=== PATIENT | female | born 1960 | race Caucasian/White ===

== ENCOUNTER 2019-03-17 18:22 | Emergency (ER) | payer OTHER ==
--- OUTSIDE RECORDS SUMMARY | 2019-03-17 18:25 | XMS REPORT | Continuity of Care Document ---
:1960 Author Organization [facility] Address [address] [place] [address] Phone Unavailable Care Team Providers Name Role Phone MARIE EATON DO Primary Care Physician Insurance Providers Guarantor Mandeep Lopez Address [address] [place] [address] Email [email or web address] [facility] Policy Number [id number] Subscriber's Name Mandeep Lopez Relationship 18 Self / Same As Patient Effective Date 11 Advance Directives Directive Response Recorded Date/Time Does the patient have an advance directive? No 04/30/15 7:59pm If yes, is advance directive on file with [facility]? No 04/30/15 7:59pm If not on file with [facility] will patient provide a copy? No 04/30/15 7:59pm Do you have a Directive to Physician? No 03/14/18 10:35am Do you have a Medical Power of Food Services Director? No 03/14/18 10:35am Do you have an out of hospital Do Not Resuscitate Order? No 03/14/18 10:35am Do you have any special needs we should be aware of? No 03/14/18 10:35am Do you have a support person here with you today? No 03/14/18 10:35am Did patient receive Notice of Privacy Practices? Yes 03/14/18 10:35am Did patient receive patient rights and responsibilities? Yes 03/14/18 10:35am Problems No problem information available. Medications Current Home Medications Medication Dose Units Route Directions Days Qty Instructions Start Date Duloxetine Hcl 30 Mg Daily 30 (Cymbalta) 30 Cap Mg Capsule. Escitalopram 10 Mg Oral Daily 30 Oxalate Tab (Lexapro) 10 Mg Tablet Esomeprazole PROTONIX Magnesium THERAPEUTIC (Nexium) 40 Mg SUBSTITUTE FOR Capsule.dr CARIAS PER [facility] Ketorolac Tromethamine (Sprix) 1 Each [place] Quetiapine Unknown Oral Twice A Day 60 Fumarate Dose Tab (Seroquel) 25 Mg Tablet Tiotropium Unknown Inhalation [place] Dose (Spiriva) 18 Mcg Cap.w.dev Social History Smoking Status Start Date Stop Date Former smoker Hospital Discharge Instructions No hospital discharge instruction information available. Plan of Care Discharge Date 03/14/18 2:46pm Disposition HOME, SELF-CARE Condition at Discharge Stable Instructions/Education Provided Bronchitis (Acute) - Adult COPD Hypokalemia Pneumonia - Bacterial Forms Provided Work/School Excuse Prescriptions See Medication Section Referrals [facility] Address: [address] [place] [id number] Additional Instructions/Education follow up with pcp take meds as directed return to ER for worsening of condition Functional Status No functional status information available. Allergies, Adverse Reactions, Alerts No known allergies. Immunizations No immunization information available. Vital Signs Acute Vital Signs Vital Response Date/Time Pulse Pulse Rate (adult) 96 bpm (60 - 90) 03/14/2018 10:30am Respiratory Rate 18 bpm (12 - 24) 03/14/2018 10:30am Height 5 ft 2 in 03/14/2018 9:19am Weight 160 lb 03/14/2018 9:19am Body Mass Index 29.3 kg/m^2 03/14/2018 9:19am Results Laboratory Results Test Name Result Units Flags Reference Collection Result Comments Date/Time Date/Time White Blood 11.39 x10e3/uL H 4.8-10.8 03/14/2018 03/14/2018 Count 10:00am 10:19am Red Blood Count 3.72 x10e6/uL 3.6-5.1 03/14/2018 03/14/2018 10:00am 10:19am Hemoglobin 11.6 g/dL L 12.0-16.0 03/14/2018 03/14/2018 10:00am 10:19am Hematocrit 35.6 % 34.2-44.1 03/14/2018 03/14/2018 10:00am 10:19am Mean 95.7 fL 81-99 03/14/2018 03/14/2018 Corpuscular 10:00am 10:19am Volume Mean 31.2 pg 28-32 03/14/2018 03/14/2018 Corpuscular 10:00am 10:19am Hemoglobin Mean 32.6 g/dL 31-35 03/14/2018 03/14/2018 Corpuscular 10:00am 10:19am Hemoglobin Concent Red Cell 15.0 % H 11.7-14.4 03/14/2018 03/14/2018 Distribution 10:00am 10:19am Width Platelet Count 405 x10e3/uL H 140-360 03/14/2018 03/14/2018 10:00am 10:19am Neutrophils (%) 59.3 % 38.7-80.0 03/14/2018 03/14/2018 (Auto) 10:00am 10:19am Lymphocytes (%) 35.5 % 18.0-39.1 03/14/2018 03/14/2018 (Auto) 10:00am 10:19am Monocytes (%) 4.0 % L 4.4-11.3 03/14/2018 03/14/2018 (Auto) 10:00am 10:19am Eosinophils (%) 0.4 % 0.0-6.0 03/14/2018 03/14/2018 (Auto) 10:00am 10:19am Basophils (%) 0.3 % 0.0-1.0 03/14/2018 03/14/2018 (Auto) 10:00am 10:19am IM GRANULOCYTES 0.5 % 0.0-1.0 03/14/2018 03/14/2018 % 10:00am 10:19am Neutrophils # 6.8 2.1-6.9 03/14/2018 03/14/2018 (Auto) 10:00am 10:19am Lymphocytes # 4.0 H 1.0-3.2 03/14/2018 03/14/2018 (Auto) 10:00am 10:19am Monocytes # 0.5 0.2-0.8 03/14/2018 03/14/2018 (Auto) 10:00am 10:19am Eosinophils # 0.1 0.0-0.4 03/14/2018 03/14/2018 (Auto) 10:00am 10:19am Basophils # 0.0 0.0-0.1 03/14/2018 03/14/2018 (Auto) 10:00am 10:19am Absolute 0.06 x10e3/uL 0-0.1 03/14/2018 03/14/2018 Immature 10:00am 10:19am Granulocyte (auto Sodium Level 141 mmol/L 136-145 03/14/2018 03/14/2018 10:00am 10:38am Potassium Level 2.9 mmol/L *L 3.5-5.1 03/14/2018 03/14/2018 Results called to at 1035 on 03/14/18 by Stephen King. RB 10:00am 10:38am OK. This test has been rerun and double checked for accuracy. Chloride Level 93 mmol/L L 98-107 03/14/2018 03/14/2018 10:00am 10:38am Carbon Dioxide 35 mmol/L H 22-29 03/14/2018 03/14/2018 Level 10:00am 10:38am Anion Gap 15.9 mmol/L 8-16 03/14/2018 03/14/2018 10:00am 10:38am Blood Urea 7 mg/dL 7-26 03/14/2018 03/14/2018 Nitrogen 10:00am 10:38am Creatinine 0.69 mg/dL 0.57-1.11 03/14/2018 03/14/2018 10:00am 10:38am BUN/Creatinine 10 6-25 03/14/2018 03/14/2018 Ratio 10:00am 10:38am Estimat > 60 ML/MIN 60- 03/14/2018 03/14/2018 Ranges were taken from the National Kidney Disease Education Glomerular 10:00am 10:38am Program and the National Kidney Foundation literature. Filtration Rate Reference ranges: 60 or greater: Normal 16-59 (for 3 consecutive months): Chronic kidney disease 15 or less: Kidney failure Glucose Level 78 mg/dL 74-118 03/14/2018 03/14/2018 10:00am 10:38am Calcium Level 9.8 mg/dL 8.4-10.2 03/14/2018 03/14/2018 10:00am 10:38am Procedures Procedure Status Date Provider(s) X-ray of chest, two views Active 03/14/18 SEBASTIÁN CARVER MD Encounters Encounter Location Arrival/Admit Date Discharge/Depart Date Attending Provider Departed [facility] 03/14/18 9:11am 03/14/18 2:46pm [facility] Emergency Room Patients Med SEBASTIÁN Epstein MD Center
--- OUTSIDE RECORDS SUMMARY | 2019-03-17 18:25 | XMS REPORT ---
:1960 Author [facility] Address [address] [place] [address] [address] [address] Care Team Providers Name Role Phone SEBASTIÁN CARVER Unavailable Unavailable YANET CURRY Unavailable Unavailable Problems This patient has no known problems. Allergies, Adverse Reactions, Alerts This patient has no known allergies or adverse reactions. Medications This patient has no known medications. Results Test Description Test Time Test Comments Text Results Atomic Results Result Comments CHEST 2018-03-[address], 11:27:00 [place], [place] [address] Patient Name: MANDEEP SAAVEDRA MR # : [id number] VIEWS : 1960 Age/Sex: 58/F Req #: [id number] Adm Physician: Ordered by: SEBASTIÁN CARVER MD Report #: [id number] Location: ER Room/Bed: __ Procedure: [id number] DX/CHEST 2 VIEWS Exam Date: 03/14/18 Exam Time: 1030 REPORT STATUS: Signed PROCEDURE: Frontal and lateral views of the chest. COMPARISON: None. INDICATIONS: COPD FINDINGS: Lines/tubes: None. Lungs: Low lung volumes. The left hemidiaphragm is elevated. There are patchy opacities at the lung bases, right greater than left. No evidence of pulmonary edema. Pleura: Possible trace bilateral pleural effusion. No evidence of pneumothorax. Heart and mediastinum: The cardiomediastinal silhouette is unremarkable. Atherosclerotic calcifications of the aortic arch. Bones: No acute bony abnormality. Subacute left posterolateral sixth rib fracture. IMPRESSION: Patchy opacities at the lung bases, likely atelectasis. Superimposed aspiration or pneumonia is possible in the appropriate clinical context. Elevation of the left hemidiaphragm. Findings may reflect phrenic nerve palsy and fluoroscopic "sniff test" or correlation with any prior outside imaging is recommended for evaluation. Subacute left posterolateral sixth rib fracture. Dictated by: CHARO VILLAREAL M.D. on 03/14/2018 at 11:27 Electronically approved by: CHARO VILLAREAL M.D. on 03/14/2018 at 11:27 Dictated By: CHARO VILLAREAL MD 26 Transcribed By: SINDY on 03/14/187 COPY TO: SEBASTIÁN CARVER MD BASIC METABOLIC PANEL 2017-01-25 14:41:00 Test Item Value Reference Range Comments SODIUM (BEAKER) (test 138 meq/L 135-148 hgvq=412) POTASSIUM (BEAKER) (test 4.1 meq/L 3.5-5.5 wbbl=615) CHLORIDE (BEAKER) (test 93 meq/L 98-106 efxq=482) CO2 (BEAKER) (test hnpp=008) 32 meq/L 20-31 BLOOD UREA NITROGEN (BEAKER) 8 mg/dL 10-26 (test hffw=706) CREATININE (BEAKER) (test 0.73 mg/dL 0.50-1.20 sgkq=550) GLUCOSE RANDOM (BEAKER) 86 mg/dL 70-110 (test lutb=508) CALCIUM (BEAKER) (test 9.8 mg/dL 8.5-10.5 tjcs=283) EGFR (BEAKER) (test 82 mL/min/1.73 sq m ESTIMATED GFR IS NOT zmxn=4330) ACCURATE CREATININE CLEARANCE IN PREDICTING GLOMERULAR FILTRATION RATE. ESTIMATED GFR IS NOT APPLICABLE FOR DIALYSIS PATIENTS. CBC W/PLT COUNT & AUTO [id number] 14:20:00 Test Item Value Reference Range Comments WHITE BLOOD CELL COUNT (BEAKER) (test dunf=645) 12.3 K/ L 4.0-10.0 RED BLOOD CELL COUNT (BEAKER) (test nenn=913) 3.75 M/ L 4.00-5.00 HEMOGLOBIN (BEAKER) (test hgdd=191) 12.0 GM/DL 12.0-15.0 HEMATOCRIT (BEAKER) (test vvti=357) 36.5 % 36.0-45.0 MEAN CORPUSCULAR VOLUME (BEAKER) (test mhti=553) 97.3 fL 82.0-99.0 MEAN CORPUSCULAR HEMOGLOBIN (BEAKER) (test 32.0 pg 27.0-33.0 plud=407) MEAN CORPUSCULAR HEMOGLOBIN CONC (BEAKER) (test 32.9 GM/DL 32.0-36.0 vhuk=573) RED CELL DISTRIBUTION WIDTH (BEAKER) (test 13.7 % 12.0-15.0 tlfx=033) PLATELET COUNT (BEAKER) (test zvvd=432) 322 K/CU MM 150-430 MEAN PLATELET VOLUME (BEAKER) (test yszu=928) 7.1 fL 6.5-10.5 NUCLEATED RED BLOOD CELLS (BEAKER) (test 0 /100 WBC 0-0 ivma=024) NEUTROPHILS RELATIVE PERCENT (BEAKER) (test 70 % shdk=074) LYMPHOCYTES RELATIVE PERCENT (BEAKER) (test 23 % kohw=415) MONOCYTES RELATIVE PERCENT (BEAKER) (test 5 % xvei=348) EOSINOPHILS RELATIVE PERCENT (BEAKER) (test 1 % bgvp=557) BASOPHILS RELATIVE PERCENT (BEAKER) (test 1 % wmyj=824) NEUTROPHILS ABSOLUTE COUNT (BEAKER) (test 8.60 K/ L 1.80-8.00 wgbj=466) LYMPHOCYTES ABSOLUTE COUNT (BEAKER) (test 2.90 K/ L 1.48-4.50 wtse=557) MONOCYTES ABSOLUTE COUNT (BEAKER) (test 0.60 K/ L 0.00-1.30 dpbw=992) EOSINOPHILS ABSOLUTE COUNT (BEAKER) (test 0.20 K/ L 0.00-0.50 sipa=338) BASOPHILS ABSOLUTE COUNT (BEAKER) (test 0.10 K/ L 0.00-0.20 yrgh=522)
--- OUTSIDE RECORDS SUMMARY | 2019-03-17 18:25 | XMS REPORT | Clinical Summary ---
:1960 Author Organization [facility] Address [address] [place] [address] Care Team Providers Name Role Phone Ifeanyi Huerta Kay Primary Care Provider Unavailable Allergies Active Allergy Reactions Severity Noted Date Comments Zolpidem Other (See Comments) 01/25/2017 Psychotic episode; sleep walking; hallucinations Zolpidem Tartrate Other (See Comments) 12/06/2017 Psychotic episode Medications Medication Sig Dispensed Refills Start Date End Date Status roflumilast Take 500 mcg by 0 Active (DALIRESP) 500 mcg mouth nightly . Tab tablet albuterol Take 2.5 mg by 0 Active (PROVENTIL,VENTOLIN) nebulization every 6 5 mg/mL nebulizer (six) hours as solution needed for Wheezing. albuterol HFA Inhale 2 puffs by 0 Active (VENTOLIN HFA) 90 mouth via inhaler mcg/actuation every 6 (six) hours inhaler as needed for Wheezing . OXYGEN-AIR DELIVERY 3 L by Miscellaneous 0 Active SYSTEMS route Pt wears 3 MISCIndications: 3l liters oxygen via nasal cannula 14/03.. DULoxetine Take 60 mg by mouth 0 Active (CYMBALTA) 60 MG nightly . capsule ziprasidone (GEODON) Take 20 mg by mouth 0 Active 20 MG capsule nightly . esomeprazole Take 20 mg by mouth 0 Active (NEXIUM) 20 MG nightly . capsule armodafinil Take 250 mg by mouth 0 Active (NUVIGIL) 250 mg nightly . tablet furosemide (LASIX) Take 80 mg by mouth 0 Active 40 MG tablet nightly . potassium chloride Take 10 mEq by mouth 0 Active (KLOR-CON) 10 MEQ CR nightly . tablet oxybutynin Take 5 mg by mouth 2 0 Active (DITROPAN) 5 MG (two) times daily. tablet estrogens, Take 1.25 mg by 0 Active conjugated, mouth once a week Pt (PREMARIN) 1.25 MG takes every tablet Tuesday.. montelukast Take 10 mg by mouth 0 Active (SINGULAIR) 10 mg nightly. tablet linaclotide Take 290 mcg by 0 Active (LINZESS) 290 mcg mouth nightly . Cap lactulose (CEPHULAC) Take 10 g by mouth 0 Active 10 gram packet as needed . metoprolol Take 25 mg by mouth 0 Active (TOPROL-XL) 25 MG 24 every evening . hr tablet fluticasone 2 sprays by Nasal 0 Active (FLONASE) 50 route daily . mcg/actuation nasal spray aspirin 81 MG EC Take 81 mg by mouth 0 Active tablet nightly . Active Problems Problem Noted Date Chronic left-sided low back pain without sciatica 12/14/2017 Lumbar radiculopathy 02/01/2017 Lumbar stenosis with neurogenic claudication 02/01/2017 Spondylolisthesis of lumbar region 02/01/2017 Spondylolisthesis, lumbar region 02/01/2017 Family History Medical History Relation Name Comments Hypertension Brother Crohn's disease Father Lung cancer Mother Colon cancer Sister Relation Name Status Comments Brother Father Mother Sister Social History Tobacco Use Types Packs/Day Years Used Date Former Smoker 1 40 Quit: 01/25/2013 Smokeless Tobacco: Never Used Alcohol Use Drinks/Week oz/Week Comments No Sex Assigned at Date Recorded Not on file Job Start Date Occupation Industry Not on file Not on file Not on file Travel History Travel Start Travel End No recent travel history available. Last Filed Vital Signs Not on file Plan of Treatment Health Maintenance Due Date Last Done Comments INFLUENZA VACCINE 05/22/2018 Implants Implanted Type Area Electronic Security Specialist Device Shelf Model / Identifier Expiration Serial / Date Lot Matrix Floseal Hemo W/O Ndl 10 [id number] - [id number] Cement/F Spine SLOAN: BIOSCI 06/21/2018 [id number] / Implanted: Qty: 1 on 02/01/2017 by Jaycob Rose MD iller/Ad Lumbar / hesive [id number] Gelfoam Kt + Orig [id number] - [id number] Cement/F Spine SLOAN:BIOSCI 2017 [id number] / Implanted: Qty: 1 on 02/01/2017 by Jaycob Rose MD iller/Ad Lumbar / hesive [id number] Sealr Kt Duraseal Poly 5ml - [id number] Cement/F Spine CONFLUENT SURG 03/21/2018 / Implanted: Qty: 1 on 02/01/2017 by Jaycob Rose MD iller/Ad Lumbar INC / hesive [id number] Results Not on fileafter 03/16/2018 Insurance Payer Benefit Plan / Subscriber ID Type Phone Address Group MEDICAID - MEDICAID [facility] COMM STAR xxxxxxxxx Medicaid Contracted [employer]GD CARE PLAN Advance Directives For more information, please contact:[address] [phone] Code Status Date Activated Date Inactivated Comments Full Code 02/01/2017 12:23 PM 02/02/2017 5:02 PM This code status was determined by: Patient
[2019-03-17] MEDS ORDERED: METHYLPREDNISOLONE 125 MG INJ ONE (19:47)
[2019-03-17] MEDS ORDERED: LEVALBUTEROL 1.25 MG/3 ML NEB ONE (19:48)
[2019-03-17 20:09] LABS: Absolute Lymphocytes (CBC) 2.8 K/uL (0.7-4.9); Basophils % 0.4 % (0-1.3); Hematocrit 35.9 % (36.0-45.0); Lymphocytes % 23.9 % (15.3-44.8); MPV 8.2 fL (7.6-11.3); RBC Red Blood Cell Count 3.91 M/uL (3.86-4.86)
--- NOTE | 2019-03-17 20:14 | RAD REPORT ---
EXAM DESCRIPTION: Saad Single View03/17/2019 7:55 pm CLINICAL HISTORY: sob COMPARISON: October 2017 FINDINGS: The lungs appear clear of acute infiltrate. The heart is mildly enlarged Left hemidiaphragm remains elevated IMPRESSION: No acute abnormalities displayed
[2019-03-17 20:21] LABS: BUN Blood Urea Nitrogen 11 mg/dL (7-18); Bicarbonate 34 mmol/L (21-32); Glucose Level 114 mg/dL (74-106); NT PRO-BNP 269 pg/mL (<125); Potassium 3.4 mmol/L (3.5-5.1); Sodium Level 141 mmol/L (136-145); Troponin (Emerg Dept Use Only) < 0.02 ng/mL (0.0-0.045)
--- NOTE | 2019-03-17 21:00 | ER ---
Nurse's Notes [facility] Name: Maureen Lopez Age: 59 yrs Sex: Female : 1960 Arrival Date: 03/17/2019 Time: 18:22 Bed 30 Private MD: Diagnosis: Chronic obstructive pulmonary disease, unspecified;Unspecified combined systolic (congestive) and diastolic (congestive) heart failure;Dyspnea, unspecified Presentation: 03/17 18:37 Presenting complaint: Patient states: "It's been coming on for the past few weeks, I've aj1 taken 2 rounds of steroids and 3 rounds of antibiotics and while I'm taking them my breathing gets better but when I stop it goes back to I can't walk across the room because I'm gasping for air." Denies cough, denies fever. Reports that her legs have been more swollen than normal, but she figured that was due to the steroids. Transition of care: patient was not received from another setting of care. Onset of symptoms was March 17, 2019. Risk Assessment: Do you want to hurt yourself or someone else? Patient reports no desire to harm self or others. Initial Sepsis Screen: Does the patient meet any 2 criteria? No. Patient's initial sepsis screen is negative. Does the patient have a suspected source of infection? No. Patient's initial sepsis screen is negative. Care prior to arrival: None. 18:37 Method Of Arrival: Wheelchair aj1 18:37 Acuity: ELIANE 3 aj1 Triage Assessment: 18:40 General: Appears in no apparent distress. comfortable, Behavior is calm, cooperative, aj1 appropriate for age. Pain: Denies pain. Neuro: Level of Consciousness is awake, alert, obeys commands, Oriented to person, place, time, situation. Cardiovascular: Patient's skin is warm and dry. Respiratory: Reports shortness of breath on exertion Airway is patent Respiratory effort is even, unlabored, Respiratory pattern is regular, symmetrical, Onset: The symptoms/episode began/occurred gradually, the patient has mild shortness of breath. Historical: - Allergies: 18:40 ambien; aj1 - Home Meds: 18:40 Aciphex 20 mg Oral TbEC 1 tab 2 times per day [Active]; Cymbalta 60 mg Oral cpDR 1 cap aj1 once daily [Active]; metoprolol tartrate 25 mg Oral tab 1 tab 2 times per day [Active]; Nuvigil 250 mg Oral tab 1 tab once daily [Active]; oxybutynin chloride 5 mg Oral tab 1 tab 2 times per day for Bladder Hyperactivity [Active]; Proventil Inhl [Active]; Ultram 50 mg Oral tab 1 tab every 4 hours [Active]; Lasix 80 mg Oral tab 1 tab once daily [Active]; aspirin 81 mg Oral chew 1 tab once daily [Active]; - PMHx: 18:40 Atrial Fib; Bladder Hyperactivity; COPD; Hypertension; CHF; aj1 - Immunization history:: Flu vaccine is not up to date. - Social history:: Smoking status: Patient/guardian denies using tobacco. - Ebola Screening: : Patient denies travel to an Ebola-affected area in the 21 days before illness onset. - Family history:: not pertinent. - Hospitalizations: : No recent hospitalization is reported. Screenin:22 Abuse screen: Denies threats or abuse. Denies injuries from another. Nutritional rv screening: No deficits noted. Tuberculosis screening: No symptoms or risk factors identified. Fall Risk None identified. Assessment: 19:20 General: Appears in no apparent distress. comfortable, Behavior is calm, cooperative. rv Pain: Denies pain. Neuro: Level of Consciousness is awake, alert, obeys commands, Oriented to person, place, time, situation. Cardiovascular: Patient's skin is warm and dry. Rhythm is regular. Respiratory: Airway is patent Breath sounds are clear bilaterally. Respiratory: Respiratory effort is even. Respiratory: Respiratory pattern is regular. Respiratory: Airway Trachea midline. Respiratory: Reports shortness of breath at rest GI: No signs and/or symptoms were reported involving the gastrointestinal system. : No signs and/or symptoms were reported regarding the genitourinary system. EENT: No signs and/or symptoms were reported regarding the EENT system. Derm: Skin is intact. Musculoskeletal: No signs and/or symptoms reported regarding the musculoskeletal system. 21:25 Reassessment: Patient appears in no apparent distress at this time. Patient and/or rv family updated on plan of care and expected duration. Pain level reassessed. Patient is alert, oriented x 3, equal unlabored respirations, skin warm/dry/pink. patient is waiting for her daughter to pick her up. Vital Signs: 18:40 BP 121 / 80; Pulse 91; Resp 20; Temp 98.4; Pulse Ox 99% on 3 lpm NC; Weight 78.02 kg aj1 (R); Height 5 ft. 2 in. (157.48 cm) (R); Pain 0/10; 19:30 BP 136 / 80; Pulse 102; Resp 22; Pulse Ox 99% on 3 lpm NC; rv 20:00 BP 125 / 60; Pulse 97; Resp 18; Pulse Ox 99% on 3 lpm NC; rv 20:30 BP 112 / 72; Pulse 101; Resp 17; Pulse Ox 99% on 2 lpm NC; rv 21:00 BP 131 / 71; Pulse 99; Resp 19; Pulse Ox 96% on 2 lpm NC; rv 18:40 Body Mass Index 31.46 (78.02 kg, 157.48 cm) aj1 ED Course: 18:22 Patient arrived in ED. as 18:39 Triage completed. aj1 18:40 Arm band placed on Patient placed in waiting room, Patient notified of wait time. aj1 19:08 Mele Luevano MD is Attending Physician. rn 19:19 Gabriel Painting RN is Primary Nurse. rv 19:47 Patient has correct armband on for positive identification. Placed in gown. Bed in low rv position. Call light in reach. Side rails up X 1. monitoring and evaluation advisor on. Pulse ox on. NIBP on. 19:50 Initial lab(s) drawn, by me, sent to lab. First set of blood cultures drawn by me. lt1 19:53 Missed attempt(s): 22 gauge in right forearm. lt1 19:53 Inserted saline lock: 22 gauge in right antecubital area, using aseptic technique. lt1 19:57 XRAY CXR (1 view) In Process Unspecified. EDMS 21:23 No provider procedures requiring assistance completed. IV discontinued, intact, rv bleeding controlled, No redness/swelling at site. Pressure dressing applied. Administered Medications: 19:37 Drug: Xopenex (3) 1.25 mg Route: Inhalation; rv 19:51 Drug: SOLU-Medrol 125 mg Route: IVP; Site: right antecubital; rv 21:20 Follow up: Response: No adverse reaction rv 21:12 Drug: Lasix 20 mg Route: IVP; Site: right antecubital; rv 21:20 Follow up: Response: Medication administered at discharge. rv Outcome: 21:01 Discharge ordered by . rn 21:23 Discharged to home ambulatory, with family. rv 21:23 Condition: good 21:23 Discharge instructions given to patient, Instructed on discharge instructions, follow up and referral plans. medication usage, Demonstrated understanding of instructions, follow-up care, medications, Prescriptions given X 1. 21:40 Patient left the ED. rv Signatures: Dispatcher [employer] EDMelba Davenport RN RN Liz Jacobson Roman, MD MD rn Vicente, Ronaldo, RN RN rv Tran, Leah 1
--- NOTE | 2019-03-17 21:01 | EDPHYS ---
Physician Documentation [facility] Name: Maureen Lopez Age: 59 yrs Sex: Female : 1960 Arrival Date: 03/17/2019 Time: 18:22 Bed 30 Private MD: ED Physician Mele Luevano HPI: 03/17 19:24 This 59 yrs old Female presents to ER via Wheelchair with complaints of rn Breathing Difficulty. 19:24 The patient has shortness of breath with light activity. Onset: The symptoms/episode rn began/occurred 2 week(s) ago. Duration: The symptoms are intermittent. The patient's shortness of breath is aggravated by exertion, light activity, talking, walking. Severity of symptoms: At their worst the symptoms were moderate in the emergency department the symptoms are unchanged. The patient has experienced similar episodes in the past. Reports has been on 2 rounds of abx and steroids, taking fluid pills, usually on 3L oxygen, short tubing. Cannot catch her breath with exertion. No hx of DVT/PE, no recent surgery or immobilization. No fever/cough. . Historical: - Allergies: 18:40 ambien; aj1 - Home Meds: 18:40 Aciphex 20 mg Oral TbEC 1 tab 2 times per day [Active]; Cymbalta 60 mg Oral cpDR 1 cap aj1 once daily [Active]; metoprolol tartrate 25 mg Oral tab 1 tab 2 times per day [Active]; Nuvigil 250 mg Oral tab 1 tab once daily [Active]; oxybutynin chloride 5 mg Oral tab 1 tab 2 times per day for Bladder Hyperactivity [Active]; Proventil Inhl [Active]; Ultram 50 mg Oral tab 1 tab every 4 hours [Active]; Lasix 80 mg Oral tab 1 tab once daily [Active]; aspirin 81 mg Oral chew 1 tab once daily [Active]; - PMHx: 18:40 Atrial Fib; Bladder Hyperactivity; COPD; Hypertension; CHF; aj1 - Immunization history:: Flu vaccine is not up to date. - Social history:: Smoking status: Patient/guardian denies using tobacco. - Ebola Screening: : Patient denies travel to an Ebola-affected area in the 21 days before illness onset. - Family history:: not pertinent. - Hospitalizations: : No recent hospitalization is reported. ROS: 19:24 Constitutional: Negative for fever, chills, and weight loss, Eyes: Negative for injury, rn pain, redness, and discharge, Neck: Negative for injury, pain, and swelling, Cardiovascular: Negative for chest pain, palpitations Respiratory: Negative for cough, and pleuritic chest pain, Abdomen/GI: Negative for abdominal pain, nausea, vomiting, diarrhea, and constipation, MS/Extremity: Negative for injury and deformity, Skin: Negative for injury, rash, and discoloration, Neuro: + generalized weakness Exam: 19:24 Constitutional: Overweight female, no acute distress while sitting up in bed rn Head/Face: Normocephalic, atraumatic. Eyes: Pupils equal round and reactive to light, extra-ocular motions intact. Lids and lashes normal. Conjunctiva and sclera are non-icteric and not injected. Cornea within normal limits. Periorbital areas with no swelling, redness, or edema. ENT: MMM, no stridor Cardiovascular: Regular rate and rhythm. No pulse deficits. Respiratory: + bilateral exp wheezing, mild tachypnea, no retractions Abdomen/GI: soft, non-tender MS/ Extremity: Pulses equal, no cyanosis. Neurovascular intact. Full, normal range of motion. Equal circumference. Neuro: Awake and alert, GCS 15, oriented to person, place, time, and situation. Cranial nerves II-XII grossly intact. Motor strength 5/5 in all extremities. Sensory grossly intact. Cerebellar exam normal. Vital Signs: 18:40 BP 121 / 80; Pulse 91; Resp 20; Temp 98.4; Pulse Ox 99% on 3 lpm NC; Weight 78.02 kg aj1 (R); Height 5 ft. 2 in. (157.48 cm) (R); Pain 0/10; 19:30 BP 136 / 80; Pulse 102; Resp 22; Pulse Ox 99% on 3 lpm NC; rv 20:00 BP 125 / 60; Pulse 97; Resp 18; Pulse Ox 99% on 3 lpm NC; rv 20:30 BP 112 / 72; Pulse 101; Resp 17; Pulse Ox 99% on 2 lpm NC; rv 21:00 BP 131 / 71; Pulse 99; Resp 19; Pulse Ox 96% on 2 lpm NC; rv 18:40 Body Mass Index 31.46 (78.02 kg, 157.48 cm) [facility] MDM: 19:08 Patient medically screened. rn 20:57 Differential diagnosis: Bronchitis CHF exacerbation, Chronic Obstructive Pulmonary rn Disease pneumonia, Pneumothorax pulmonary edema, reactive airway disease. Data reviewed: vital signs, nurses notes, lab test result(s), EKG, radiologic studies, plain films, and as a result, I will discharge patient. Counseling: I had a detailed discussion with the patient and/or guardian regarding: the historical points, exam findings, and any diagnostic results supporting the discharge/admit diagnosis, lab results, radiology results, the need for outpatient follow up, to return to the emergency department if symptoms worsen or persist or if there are any questions or concerns that arise at home. Response to treatment: the patient's symptoms have mildly improved after treatment, and as a result, I will discharge patient. Special discussion: I discussed with the patient/guardian in detail that at this point there is no indication for admission to the hospital. It is understood, however, that if the symptoms persist or worsen the patient needs to return immediately for re-evaluation. ED course: Patient with mild improvement, no acute findings on CXR, is 99% on home O2 level, no sign of infection, no ischemia on ECG. Does not need abx. Was given only 40mg prednisone last time, will dc home with 60mg prednisone and recommended doubling her lasix for next 3 days.. 03/17 19:24 Order name: Blood Culture Adult (2) rn 03/17 19:24 Order name: BMP; Complete Time: 20:40 03/17 19:24 Order name: CBC with Diff; Complete Time: 20:16 03/17 19:24 Order name: NT PRO-BNP; Complete Time: 20:40 03/17 19:24 Order name: Troponin (emerg Dept Use Only); Complete Time: 20:40 03/17 19:24 Order name: Procalcitonin; Complete Time: 21:21 03/17 19:24 Order name: XRAY CXR (1 view); Complete Time: 20:16 03/17 19:24 Order name: EKG; Complete Time: 19:27 rn 03/17 19:24 Order name: Cardiac monitoring; Complete Time: 19:55 03/17 19:24 Order name: EKG - Nurse/Tech; Complete Time: 20:32 03/17 19:24 Order name: IV Saline Lock; Complete Time: 19:55 rn 03/17 19:24 Order name: Labs collected and sent; Complete Time: 19:55 rn 03/17 19:24 Order name: O2 Per Protocol; Complete Time: 19:55 rn 03/17 19:24 Order name: O2 Sat Monitoring; Complete Time: 19:55 rn Administered Medications: 19:37 Drug: Xopenex (3) 1.25 mg Route: Inhalation; rv 19:51 Drug: SOLU-Medrol 125 mg Route: IVP; Site: right antecubital; rv 21:20 Follow up: Response: No adverse reaction rv 21:12 Drug: Lasix 20 mg Route: IVP; Site: right antecubital; rv 21:20 Follow up: Response: Medication administered at discharge. rv Disposition: 03/17/19 21:01 Discharged to Home. Impression: Chronic obstructive pulmonary disease, unspecified, Unspecified combined systolic (congestive) and diastolic (congestive) heart failure, Dyspnea, unspecified. - Condition is Stable. - Discharge Instructions: Chronic Obstructive Pulmonary Disease, Heart Failure, Shortness of Breath. - Prescriptions for Prednisone 20 mg Oral Tablet - take 3 tablet by ORAL route once daily for 5 days; 15 tablet. - Medication Reconciliation Form, Thank You Letter, Antibiotic Education, Prescription Opioid Use form. - Follow up: Private Physician; When: As needed; Reason: Recheck today's complaints, Re-evaluation by your physician. - Problem is an ongoing problem. - Symptoms have improved. Signatures: Dispatcher [employer] EDMI Melba Kellogg RN RN aj1 Mele Luevano MD MD rn Vicente, Ronaldo, RN RN rv Corrections: (The following items were deleted from the chart) 21:40 21:01 03/17/2019 21:01 Discharged to Home. Impression: Chronic obstructive pulmonary rv disease, unspecified; Unspecified combined systolic (congestive) and diastolic (congestive) heart failure; Dyspnea, unspecified. Condition is Stable. Forms are Medication Reconciliation Form, Thank You Letter, Antibiotic Education, Prescription Opioid Use. Follow up: Private Physician; When: As needed; Reason: Recheck today's complaints, Re-evaluation by your physician. Problem is an ongoing problem. Symptoms have improved. rn
[2019-03-17] MEDS ORDERED: FUROSEMIDE 20 MG/ 2ML VIAL ONE (21:23)
[2019-03-17 22:33] VITALS: TEMP 98.4
[2019-03-17 22:38] VITALS: BP 131/71; O2SAT 96
--- NOTE | 2019-03-18 06:28 | EKG ---
Test Date: 2019-03-17 Test Time: 20:26:24 Hospital Receptionist: GIANFRANCO MEASUREMENT RESULTS: Intervals: Rate: 99 LA: 172 QRSD: 78 QT: 372 QTc: 477 [place]: P: 58 LA: 172 QRS: 14 T: 61 INTERPRETIVE STATEMENTS: Normal sinus rhythm Normal ECG Compared to ECG 12/10/2016 05:18:14 Left anterior fascicular block no longer present Prolonged QT interval no longer present Electronically Signed On 03-18-19 06:27:36 CDT by Pedro Matos
== END 2019-03-17 21:40 | disposition home or self-care (01) ==
LOC: ER 18:22
DX: J44.9 Chronic obstructive pulmonary disease, unspecified (principal); I50.40 Unspecified combined systolic (congestive) and diastolic (congestive) heart failure; I10 Essential (primary) hypertension; I48.91 Unspecified atrial fibrillation; Z79.82 Long term (current) use of aspirin; Z88.8 Allergy status to other drugs, medicaments and biological substances
CPT/HCPCS: 36415; 71045; 80048; 83880; 84145; 84484; 85025; 87040; 93005; 96374; 96375; 99285; J1940; J2930

== ENCOUNTER 2019-04-27 21:54 | Inpatient (IN) | payer OTHER ==
--- OUTSIDE RECORDS SUMMARY | 2019-04-27 21:57 | XMS REPORT | Clinical Summary ---
:[address] [facility] Address [address] [place] [address] Care Team Providers Name Role Phone Ifeanyi [...] INFLUENZA VACCINE 05/22/2018 Implants Implanted Type Area Assistant In Nursing Device Shelf Model / Identifier Expiration Serial / Date Lot Matrix Floseal Hemo W/O Ndl 10 [id number] - [id number] Cement/F Spine SLOAN: BIOSCI 06/21/2018 [id number] / Implanted: Qty: 1 on 02/01/2017 by Jaycob Rose MD iller/Ad Lumbar / hesive [id number] Gelfoam Kt + Orig [id number] - [id number] Cement/F Spine SLOAN:BIOSCI 2017 [id number] / Implanted: Qty: 1 on 02/01/2017 by Jaycob Rose MD iller/Ad Lumbar / hesive [id number] Sealr Kt Duraseal Poly 5ml - [id number] Cement/F Spine CONFLUENT SURG 03/21/2018 / Implanted: Qty: 1 on 02/01/2017 by Jaycob Rose MD iller/Ad Lumbar INC / hesive [id number] Results Not on fileafter 04/26/2018 Insurance Payer Benefit Plan / Subscriber ID Type Phone Address Group MEDICAID - MEDICAID [facility] [place] [facility] xxxxxxxxx Medicaid Contracted [employer] CARE PLAN Advance Directives For more information, please contact:[address] [phone] Code Status Date Activated Date Inactivated Comments Full Code 02/01/2017 12:23 PM 02/02/2017 5:02 PM This code status was determined by: Patient
--- OUTSIDE RECORDS SUMMARY | 2019-04-27 21:57 | XMS REPORT ---
:1960 Author Organization [facility] Address [address] [place] [address] [address] Care Team Providers Name Role Phone SEBASTIÁN CARVER Unavailable Unavailable YANET CURRY Unavailable Unavailable Problems This patient has no known problems. Allergies, Adverse Reactions, Alerts This patient has no known allergies or adverse reactions. Medications This patient has no known medications. Results Test Description Test Time Test Comments Text Results Atomic Results Result Comments CHEST 2018-03-[address], 11:27:00 [place], [place] [address] Patient Name: MANDEEP SAAVEDRA MR # : [id number] VIEWS : 1960 Age/Sex: 58/F Req #: [id number] Adm Physician: Ordered by: SEBASTIÁN CARVER MD Report #: [id number] Location: ER Room/Bed: __ Procedure: [id number] DX/CHEST 2 VIEWS Exam Date: 03/14/18 Exam [...] Comments SODIUM (BEAKER) (test 138 meq/L 135-148 qios=023) POTASSIUM (BEAKER) (test 4.1 meq/L 3.5-5.5 undc=101) CHLORIDE (BEAKER) (test 93 meq/L 98-106 upyj=365) CO2 (BEAKER) (test dlck=396) 32 meq/L 20-31 BLOOD UREA NITROGEN (BEAKER) 8 mg/dL 10-26 (test sqab=198) CREATININE (BEAKER) (test 0.73 mg/dL 0.50-1.20 kpkj=256) GLUCOSE RANDOM (BEAKER) 86 mg/dL 70-110 (test puju=844) CALCIUM (BEAKER) (test 9.8 mg/dL 8.5-10.5 cdgr=603) EGFR (BEAKER) (test 82 mL/min/1.73 sq m ESTIMATED GFR IS NOT jndr=6432) ACCURATE CREATININE CLEARANCE IN PREDICTING GLOMERULAR FILTRATION RATE. ESTIMATED GFR IS NOT APPLICABLE FOR DIALYSIS PATIENTS. CBC W/PLT COUNT & AUTO [id number] 14:20:00 Test Item Value Reference Range Comments WHITE BLOOD CELL COUNT (BEAKER) (test ipih=857) 12.3 K/ L 4.0-10.0 RED BLOOD CELL COUNT (BEAKER) (test wtjx=987) 3.75 M/ L 4.00-5.00 HEMOGLOBIN (BEAKER) (test cyzo=131) 12.0 GM/DL 12.0-15.0 HEMATOCRIT (BEAKER) (test nkog=374) 36.5 % 36.0-45.0 MEAN CORPUSCULAR VOLUME (BEAKER) (test kuuj=358) 97.3 fL 82.0-99.0 MEAN CORPUSCULAR HEMOGLOBIN (BEAKER) (test 32.0 pg 27.0-33.0 pxnz=848) MEAN CORPUSCULAR HEMOGLOBIN CONC (BEAKER) (test 32.9 GM/DL 32.0-36.0 ivrq=175) RED CELL DISTRIBUTION WIDTH (BEAKER) (test 13.7 % 12.0-15.0 zfoy=842) PLATELET COUNT (BEAKER) (test bdyl=827) 322 K/CU MM 150-430 MEAN PLATELET VOLUME (BEAKER) (test ytzo=809) 7.1 fL 6.5-10.5 NUCLEATED RED BLOOD CELLS (BEAKER) (test 0 /100 WBC 0-0 bzrk=363) NEUTROPHILS RELATIVE PERCENT (BEAKER) (test 70 % hbru=545) LYMPHOCYTES RELATIVE PERCENT (BEAKER) (test 23 % lyii=566) MONOCYTES RELATIVE PERCENT (BEAKER) (test 5 % npor=919) EOSINOPHILS RELATIVE PERCENT (BEAKER) (test 1 % pnua=811) BASOPHILS RELATIVE PERCENT (BEAKER) (test 1 % ovdk=812) NEUTROPHILS ABSOLUTE COUNT (BEAKER) (test 8.60 K/ L 1.80-8.00 hydu=510) LYMPHOCYTES ABSOLUTE COUNT (BEAKER) (test 2.90 K/ L 1.48-4.50 wukj=787) MONOCYTES ABSOLUTE COUNT (BEAKER) (test 0.60 K/ L 0.00-1.30 ldny=500) EOSINOPHILS ABSOLUTE COUNT (BEAKER) (test 0.20 K/ L 0.00-0.50 kfvt=153) BASOPHILS ABSOLUTE COUNT (BEAKER) (test 0.10 K/ L 0.00-0.20 gdxp=116)
[2019-04-28 00:05] LABS: Absolute Lymphocytes (CBC) 3.3 K/uL (0.7-4.9); Basophils % 0.2 % (0-1.3); Lymphocytes % 36.5 % (15.3-44.8); MPV 7.7 fL (7.6-11.3); RBC Red Blood Cell Count 3.99 M/uL (3.86-4.86)
[2019-04-28] MEDS ORDERED: ALBUTEROL 2.5 MG/3 ML NEB SOL ONE (00:09)
[2019-04-28] MEDS ORDERED: IPRATROPIUM BROM 0.5MG/2.5ML ONE (00:09)
[2019-04-28] MEDS ORDERED: FENTANYL CITR 100 MCG/2 ML ONE ×2 (00:11→01:35)
[2019-04-28 00:19] LABS: Arterial Blood Carboxyhemoglob 0.7 % (0-1.5); Blood Gas Oxyhemoglobin 94.9 % (94-97); Blood O2 Saturation 96.3 % (92-98.5)
[2019-04-28 00:44] LABS: ALT/SGPT 20 U/L (12-78); AST/SGOT 17 U/L (15-37); Albumin 3.7 g/dL (3.4-5.0); Alkaline Phosphatase 109 U/L (45-117); BUN Blood Urea Nitrogen 12 mg/dL (7-18); Bicarbonate 36 mmol/L (21-32); Bilirubin Direct < 0.1 mg/dL (0-0.2); Bilirubin Total 0.2 mg/dL (0.2-1.0); Glucose Level 98 mg/dL (74-106); Lipase 124 U/L (73-393); Protein, Total 7.2 g/dL (6.4-8.2); Sodium Level 143 mmol/L (136-145); Troponin (Emerg Dept Use Only) < 0.02 ng/mL (0.0-0.045)
[2019-04-28 00:45] LABS: Potassium 2.7 mmol/L (3.5-5.1)
[2019-04-28] MEDS ORDERED: POTASSIUM 25 MEQ EFFERV TAB ONE (01:01)
[2019-04-28] MEDS ORDERED: KETOROLAC 30 MG/ML INJ ONE (02:03)
[2019-04-28] MEDS ORDERED: HYDROMORPHONE HCL 0.5 MG/0.5 ML INJ ONE (02:43)
--- NOTE | 2019-04-28 02:45 | EDPHYS ---
Physician Documentation [facility] Name: Maureen Lopez Age: 59 yrs Sex: Female : 1960 Arrival Date: 04/27/2019 Time: 21:58 Bed 17 Private MD: out of town, doctor ED Physician Glen Tabares HPI: 04/28 02:37 This 59 yrs old Female presents to ER via Wheelchair with complaints of Abd gs Pain > 50 y/o. 02:37 The patient presents with abdominal pain in the lower abdomen. Onset: The gs symptoms/episode began/occurred acutely, 2 day(s) ago, and became worse and became persistent. The symptoms do not radiate. Associated signs and symptoms: Pertinent positives: vomiting. The symptoms are described as sharp. Modifying factors: The symptoms are alleviated by nothing, the symptoms are aggravated by nothing. Severity of pain: At its worst the pain was severe in the emergency department the pain is unchanged. The patient has not experienced similar symptoms in the past. Historical: - Allergies: 04/27 22:14 ambien; aj1 - Home Meds: 22:14 Aciphex 20 mg Oral TbEC 1 tab 2 times per day [Active]; aspirin 81 mg Oral chew 1 tab aj1 once daily [Active]; Cymbalta 60 mg Oral cpDR 1 cap once daily [Active]; Lasix 80 mg Oral tab 1 tab once daily [Active]; metoprolol tartrate 25 mg Oral tab 1 tab 2 times per day [Active]; Nuvigil 250 mg Oral tab 1 tab once daily [Active]; oxybutynin chloride 5 mg Oral tab 1 tab 2 times per day for Bladder Hyperactivity [Active]; Proventil Inhl [Active]; Ultram 50 mg Oral tab 1 tab every 4 hours [Active]; - PMHx: 22:14 Atrial Fib; Bladder Hyperactivity; CHF; COPD; Hypertension; aj1 - Immunization history:: Flu vaccine is not up to date. - Social history:: Smoking status: Patient/guardian denies using tobacco. - Ebola Screening: : Patient denies travel to an Ebola-affected area in the 21 days before illness onset. ROS: 04/28 02:37 All other systems are negative. gs Exam: 02:37 Head/Face: Normocephalic, atraumatic. Eyes: Pupils equal round and reactive to light, gs extra-ocular motions intact. Lids and lashes normal. Conjunctiva and sclera are non-icteric and not injected. Cornea within normal limits. Periorbital areas with no swelling, redness, or edema. ENT: Nares patent. No nasal discharge, no septal abnormalities noted. Tympanic membranes are normal and external auditory canals are clear. Oropharynx with no redness, swelling, or masses, exudates, or evidence of obstruction, uvula midline. Mucous membranes moist. Neck: Trachea midline, no thyromegaly or masses palpated, and no cervical lymphadenopathy. Supple, full range of motion without nuchal rigidity, or vertebral point tenderness. No Meningismus. Chest/axilla: Normal chest wall appearance and motion. Nontender with no deformity. No lesions are appreciated. 02:37 Respiratory: Lungs have equal breath sounds bilaterally, clear to auscultation and percussion. No rales, rhonchi or wheezes noted. No increased work of breathing, no retractions or nasal flaring. Back: No spinal tenderness. No costovertebral tenderness. Full range of motion. Skin: Warm, dry with normal turgor. Normal color with no rashes, no lesions, and no evidence of cellulitis. MS/ Extremity: Pulses equal, no cyanosis. Neurovascular intact. Full, normal range of motion. Neuro: Awake and alert, GCS 15, oriented to person, place, time, and situation. Cranial nerves II-XII grossly intact. Motor strength 5/5 in all extremities. Sensory grossly intact. Cerebellar exam normal. Normal gait. 02:37 Constitutional: The patient appears alert, awake. 02:37 Cardiovascular: Rate: tachycardic, Rhythm: regular, Pulses: no pulse deficits are appreciated, Heart sounds: normal. 02:37 Respiratory: Breath sounds: decreased breath sounds, that are moderate, are located in both bases. 02:37 Abdomen/GI: Palpation: severe abdominal tenderness, in the left lower quadrant. Vital Signs: 04/27 22:14 BP 147 / 106; Pulse 101; Resp 20; Temp 97.7; Pulse Ox 98% on R/A; Weight 81.65 kg (R); aj1 Height 5 ft. 2 in. (157.48 cm) (R); Pain 8/10; 23:30 BP 147 / 85; Pulse 86; Resp 20 S; Pulse Ox 98% on 2 lpm NC; cc3 04/28 00:03 BP 132 / 98; Pulse 86; Resp 16 S; Pulse Ox 100% on 2 lpm NC; cc3 01:38 BP 140 / 93; Pulse 94; Resp 18 S; Pulse Ox 99% on 2 lpm NC; cc3 02:30 BP 157 / 84; Pulse 91; Resp 18 S; Pulse Ox 97% on 2 lpm NC; cc3 03:40 BP 146 / 98; Pulse 86; Resp 18 S; Pulse Ox 100% on 2 lpm NC; cc3 04:05 BP 143 / 97; Pulse 85; Resp 17 S; Pulse Ox 98% on 2 lpm NC; Pain 6/10; cc3 04/27 22:14 Body Mass Index 32.92 (81.65 kg, 157.48 cm) aj1 MDM: 04/27 23:41 Patient medically screened. 04/28 02:37 Differential diagnosis: bowel obstruction, non-specific abd pain, pancreatitis, Peptic gs Ulcer Disease. Data reviewed: vital signs, nurses notes, lab test result(s), EKG, radiologic studies. Counseling: I had a detailed discussion with the patient and/or guardian regarding: the historical points, exam findings, and any diagnostic results supporting the discharge/admit diagnosis, the need for further work-up and treatment in the hospital. 04/27 23:51 Order name: Basic Metabolic Panel; Complete Time: 00:54 04/27 23:51 Order name: CBC with Diff; Complete Time: 00:46 04/27 23:51 Order name: Hepatic Function; Complete Time: 00:54 04/27 23:51 Order name: Lipase; Complete Time: 00:54 04/27 23:51 Order name: Troponin (emerg Dept Use Only); Complete Time: 00:54 04/27 23:51 Order name: ABG; Complete Time: 00:46 04/27 23:51 Order name: XRAY Chest (1 view) 04/27 23:51 Order name: CT Stone Protocol 04/27 23:51 Order name: IV Saline Lock; Complete Time: 00:00 04/27 23:51 Order name: Labs collected and sent; Complete Time: 00:00 04/27 23:51 Order name: EKG; Complete Time: 23:52 04/27 23:51 Order name: Cardiac monitoring; Complete Time: 00:00 04/27 23:51 Order name: EKG - Nurse/Tech; Complete Time: 00:00 04/27 23:51 Order name: IV Saline Lock; Complete Time: 00:00 04/27 23:51 Order name: Labs collected and sent; Complete Time: 00:00 04/27 23:51 Order name: O2 Per Protocol; Complete Time: 00:00 04/27 23:51 Order name: O2 Sat Monitoring; Complete Time: 00:00 gs Administered Medications: 00:00 Drug: Albuterol 2.5 mg Route: Inhalation; cc3 01:03 Follow up: Response: No adverse reaction; Marked relief of symptoms cc3 00:00 Drug: AtroVENT Aerosol 0.5 mg Route: Inhalation; cc3 01:03 Follow up: Response: No adverse reaction; Marked relief of symptoms cc3 00:15 Drug: fentaNYL (PF) 25 mcg {Note: RASS 0.} Route: IVP; Site: left antecubital; cc3 01:03 Follow up: Response: No adverse reaction; Pain is decreased; RASS: Alert and Calm (0) cc3 00:57 Drug: Potassium Effervescent Tablet 50 mEq Route: PO; cc3 01:00 Follow up: Response: No adverse reaction cc3 01:30 Drug: fentaNYL (PF) 25 mcg {Note: RASS 0.} Route: IVP; Site: left antecubital; cc3 01:50 Follow up: Response: No adverse reaction; Pain is unchanged, physician notified cc3 02:00 Drug: TORadol - Ketorolac 15 mg Route: IVP; Site: left antecubital; cc3 02:30 Follow up: Response: No adverse reaction; Pain is unchanged, physician notified cc3 02:35 Drug: Dilaudid 0.5 mg {Note: RASS 0.} Route: IVP; Site: left antecubital; cc3 03:40 Follow up: Response: No adverse reaction; Pain is decreased; RASS: Alert and Calm (0) cc3 Disposition: 04/28/19 02:43 Hospitalization ordered by Ayad Sun for Inpatient Admission. Preliminary diagnosis is Other intestinal obstruction. - Bed requested for Telemetry/MedSurg (Inpatient). - Status is Inpatient Admission. cc3 - Condition is Stable. - Problem is new. - Symptoms have improved. UTI on Admission? No Signatures: Dispatcher [employer] EDMelba Davenport RN RN aj1 Madeleine Paez RN RN Glen Tabares MD MD Kandy Verdin 3 Corrections: (The following items were deleted from the chart) 03:35 02:43 Hospitalization Ordered by Ayad Sun DO for Inpatient Admission. Preliminary diagnosis is Other intestinal obstruction. Bed requested for Telemetry/MedSurg (Inpatient). Status is Inpatient Admission. Condition is Stable. Problem is new. Symptoms have improved. UTI on Admission? No. 04:14 03:35 04/28/2019 02:43 Hospitalization Ordered by Ayad Sun DO for Inpatient cc3 Admission. Preliminary diagnosis is Other intestinal obstruction. Bed requested for Telemetry/MedSurg (Inpatient). Status is Inpatient Admission. Condition is Stable. Problem is new. Symptoms have improved. UTI on Admission? No.
--- NOTE | 2019-04-28 02:45 | ER ---
Nurse's Notes [facility] Name: Maureen Lopez Age: 59 yrs Sex: Female : 1960 Arrival Date: 04/27/2019 Time: 21:58 Bed 17 Private MD: out of town, doctor Diagnosis: Other intestinal obstruction Presentation: 04/27 22:10 Presenting complaint: Patient states: RLQ pain that radiates for the past 2 days. aj1 Reports vomiting 2 days ago, denies diarrhea. Denies urinary symptoms. Denies fever. Patient also reports shortness of breath. Transition of care: patient was not received from another setting of care. Onset of symptoms was April 2019. Risk Assessment: Do you want to hurt yourself or someone else? Patient reports no desire to harm self or others. Initial Sepsis Screen: Does the patient meet any 2 criteria? HR > 90 bpm. No. Patient's initial sepsis screen is negative. Does the patient have a suspected source of infection? Yes: Acute abdominal pain. Care prior to arrival:. 22:10 Method Of Arrival: Wheelchair aj 22:10 Acuity: ELIANE 3 aj1 Triage Assessment: 22:14 General: Appears in no apparent distress. uncomfortable, Behavior is calm, cooperative, aj1 appropriate for age. Pain: Complains of pain in left lower quadrant Pain radiates to back. Neuro: Level of Consciousness is awake, alert, obeys commands. Cardiovascular: Patient's skin is warm and dry. Respiratory: Reports shortness of breath at rest Airway is patent Respiratory effort is even, unlabored, Respiratory pattern is regular, symmetrical, Onset: The symptoms/episode began/occurred gradually, the patient has mild shortness of breath. Historical: - Allergies: 22:14 ambien; aj1 - Home Meds: 22:14 Aciphex 20 mg Oral TbEC 1 tab 2 times per day [Active]; aspirin 81 mg Oral chew 1 tab aj1 once daily [Active]; Cymbalta 60 mg Oral cpDR 1 cap once daily [Active]; Lasix 80 mg Oral tab 1 tab once daily [Active]; metoprolol tartrate 25 mg Oral tab 1 tab 2 times per day [Active]; Nuvigil 250 mg Oral tab 1 tab once daily [Active]; oxybutynin chloride 5 mg Oral tab 1 tab 2 times per day for Bladder Hyperactivity [Active]; Proventil Inhl [Active]; Ultram 50 mg Oral tab 1 tab every 4 hours [Active]; - PMHx: 22:14 Atrial Fib; Bladder Hyperactivity; CHF; COPD; Hypertension; aj1 - Immunization history:: Flu vaccine is not up to date. - Social history:: Smoking status: Patient/guardian denies using tobacco. - Ebola Screening: : Patient denies travel to an Ebola-affected area in the 21 days before illness onset. Screenin:08 Abuse screen: Denies threats or abuse. Denies injuries from another. Nutritional cc3 screening: No deficits noted. Tuberculosis screening: No symptoms or risk factors identified. Fall Risk Ambulatory Aid- None/Bed Rest/Nurse Assist (0 pts). Gait- Normal/Bed Rest/Wheelchair (0 pts) Mental Status- Oriented to own ability (0 pts). Assessment: 23:08 General: Appears in no apparent distress. uncomfortable, Behavior is calm, cooperative, cc3 appropriate for age. Pain: Complains of pain in back and abdomen and left lower quadrant. Neuro: Level of Consciousness is awake, alert, obeys commands, Oriented to person, place, time, situation, Appropriate for age Personal Chef are equal bilaterally Moves all extremities. Full function Gait is steady, Speech is normal, Facial symmetry appears normal, Pupils are PERRLA, Intact. Cardiovascular: Denies chest pain, Heart tones S1 S2 present Capillary refill < 3 seconds Patient's skin is warm and dry. Rhythm is regular. Respiratory: Airway is patent Respiratory effort is even, unlabored, Respiratory pattern is regular, symmetrical, Breath sounds are clear bilaterally. GI: Abdomen is round obese. : No signs and/or symptoms were reported regarding the genitourinary system. EENT: No signs and/or symptoms were reported regarding the EENT system. Derm: Skin is intact, is healthy with good turgor, Skin is pink, warm \T\ dry. normal. Musculoskeletal: Circulation, motion, and sensation intact. Range of motion: intact in all extremities. 04/28 00:45 Reassessment: Patient appears in no apparent distress at this time. Patient and/or cc3 family updated on plan of care and expected duration. Pain level reassessed. Patient is alert, oriented x 3, equal unlabored respirations, skin warm/dry/pink. outdoor emergency care technician Doug called and relayed critical Potassium result of 2.7 Dr. Tabares informed. 01:00 Reassessment: Patient appears in no apparent distress at this time. Patient and/or cc3 family updated on plan of care and expected duration. Pain level reassessed. Patient is alert, oriented x 3, equal unlabored respirations, skin warm/dry/pink. Patient taken by laundry technician to their department by wheelchair. 01:30 Reassessment: Patient came back from CT scan department, awaiting result. cc3 02:48 Reassessment: Patient appears in no apparent distress at this time. Patient and/or cc3 family updated on plan of care and expected duration. Pain level reassessed. Patient is alert, oriented x 3, equal unlabored respirations, skin warm/dry/pink. Dr. Sun at bedside, assessing the patient. 03:45 Reassessment: Patient appears in no apparent distress at this time. Patient and/or cc3 family updated on plan of care and expected duration. Pain level reassessed. Patient is alert, oriented x 3, equal unlabored respirations, skin warm/dry/pink. Patient for admission, room available in 232, report called and handed over to GOLD Pete for continuity of care and management. 04:10 Reassessment: Patient appears in no apparent distress at this time. Patient and/or cc3 family updated on plan of care and expected duration. Pain level reassessed. Patient is alert, oriented x 3, equal unlabored respirations, skin warm/dry/pink. Patient left ER for admission vitally stable by stretcher escorted by GOLD Jesus. No valuables left in the patient's room. Patient states feeling better. Patient states symptoms have improved. Vital Signs: 04/27 22:14 BP 147 / 106; Pulse 101; Resp 20; Temp 97.7; Pulse Ox 98% on R/A; Weight 81.65 kg (R); aj1 Height 5 ft. 2 in. (157.48 cm) (R); Pain 8/10; 23:30 BP 147 / 85; Pulse 86; Resp 20 S; Pulse Ox 98% on 2 lpm NC; cc3 04/28 00:03 BP 132 / 98; Pulse 86; Resp 16 S; Pulse Ox 100% on 2 lpm NC; cc3 01:38 BP 140 / 93; Pulse 94; Resp 18 S; Pulse Ox 99% on 2 lpm NC; cc3 02:30 BP 157 / 84; Pulse 91; Resp 18 S; Pulse Ox 97% on 2 lpm NC; cc3 03:40 BP 146 / 98; Pulse 86; Resp 18 S; Pulse Ox 100% on 2 lpm NC; cc3 04:05 BP 143 / 97; Pulse 85; Resp 17 S; Pulse Ox 98% on 2 lpm NC; Pain 6/10; cc3 04/27 22:14 Body Mass Index 32.92 (81.65 kg, 157.48 cm) aj1 ED Course: 04/27 21:58 Patient arrived in ED. cl3 21:58 out of town, doctor is Private Physician. cl3 22:13 Triage completed. aj1 22:14 Arm band placed on Patient placed in waiting room, Patient notified of wait time. aj1 23:05 Glen Tabares MD is Attending Physician. gs 23:08 Kandy Verdin is Primary Nurse. cc3 23:08 Patient has correct armband on for positive identification. Placed in gown. Bed in low cc3 position. Call light in reach. Side rails up X2. panel monitor on. Pulse ox on. NIBP on. 23:46 Inserted saline lock: 20 gauge in left antecubital area, using aseptic technique. Blood cc3 collected. inserted by downstream biomanufacturing technician Mary. 07 00:32 XRAY Chest (1 view) In Process Unspecified. EDMS 01:52 CT Stone Protocol In Process Unspecified. EDMS 02:43 Ayad Sun DO is Hospitalizing Provider. gs 03:45 No provider procedures requiring assistance completed. Patient admitted, IV remains in cc3 place. Administered Medications: 00:00 Drug: Albuterol 2.5 mg Route: Inhalation; cc3 01:03 Follow up: Response: No adverse reaction; Marked relief of symptoms cc3 00:00 Drug: AtroVENT Aerosol 0.5 mg Route: Inhalation; cc3 01:03 Follow up: Response: No adverse reaction; Marked relief of symptoms cc3 00:15 Drug: fentaNYL (PF) 25 mcg {Note: RASS 0.} Route: IVP; Site: left antecubital; cc3 01:03 Follow up: Response: No adverse reaction; Pain is decreased; RASS: Alert and Calm (0) cc3 00:57 Drug: Potassium Effervescent Tablet 50 mEq Route: PO; cc3 01:00 Follow up: Response: No adverse reaction cc3 01:30 Drug: fentaNYL (PF) 25 mcg {Note: RASS 0.} Route: IVP; Site: left antecubital; cc3 01:50 Follow up: Response: No adverse reaction; Pain is unchanged, physician notified cc3 02:00 Drug: TORadol - Ketorolac 15 mg Route: IVP; Site: left antecubital; cc3 02:30 Follow up: Response: No adverse reaction; Pain is unchanged, physician notified cc3 02:35 Drug: Dilaudid 0.5 mg {Note: RASS 0.} Route: IVP; Site: left antecubital; cc3 03:40 Follow up: Response: No adverse reaction; Pain is decreased; RASS: Alert and Calm (0) cc3 Outcome: 02:43 Decision to Hospitalize by Provider. 03:45 Admitted to Med/surg accompanied by tech, via wheelchair, room 232, with oxygen, with cc3 chart, Report called to GOLD Pete 03:45 Condition: stable 03:45 Instructed on the need for admit, Demonstrated understanding of instructions. 04:14 Patient left the ED. cc3 Signatures: Dispatcher [employer] Melba Ang RN RN aj1 Starr, Gregory, MD MD gs Cordel, Charlene cc3 Glenna Reilly cl3 Corrections: (The following items were deleted from the chart) 04/27 23:46 23:46 Inserted saline lock: 20 gauge in right antecubital area, using aseptic cc3 technique. Blood collected. cc3 04/28 00:27 04/27 23:46 Inserted saline lock: 20 gauge in right antecubital area, using aseptic cc3 technique. Blood collected. inserted by downstream biomanufacturing technicianshaka Hernandez cc3
--- NOTE | 2019-04-28 03:15 | P.HP ---
Certification for Inpatient Patient admitted to: Observation With expected LOS: <2 Midnights Patient will require the following post-hospital care: None Practitioner: I am a practitioner with admitting privileges, knowledge of patient current condition, hospital course, and medical plan of care. Services: Services provided to patient in accordance with Admission requirements found in Title 42 Section 412.3 of the Code of Federal Regulations Patient History Date of Service: 04/28/19 Primary Care Provider: Dr. Henson([place]) Reason for admission: Abdominal pain History of Present Illness: 59-year-old female presented to the emergency room with left lower quadrant abdominal pain. Patient has reported left lower quadrant abdominal pain over the past 4-5 days. She rates the pain about a 10/10. No radiation pain noted. She had some nausea and vomiting the last 2 days. She has been able to the eat. She reports passing gas today. She also reports passing stool today. Patient with history of diverticulitis in the past. Patient also has chronic constipation. No recent illness noted. She denies any fever, chills. Patient came to the ER due to increasing pain. In the ER patient evaluated. White count 9.1, hemoglobin 12. Sodium 143, potassium 2.7. BUN of 12, creatinine 0.7 with a GFR of greater than 70. Glucose 98. Lipase unremarkable. LFT unremarkable. CT scan shows proximal mid early partial small-bowel obstruction versus ileus. Patient will be admitted for further evaluation and treatment. When I saw the patient the ER, she appeared stable. Patient was being given medication for pain. Patient gets most of her [facility] in [facility]. She has underlying COPD on home oxygen, obstructive sleep apnea, GERD with hiatal hernia , hypertension, and CHF. Allergies zolpidem tartrate [From Ambien] Adverse Reaction (Verified 08/11/16 02:49) hallucinations Home medications list reviewed: Yes Home Medications: Albuterol Sulfate [Proventil Hfa] 1 puff IH DAILY PRN 05/01/15 Armodafinil [Nuvigil] 250 mg PO DAILY 05/01/15 Duloxetine [Cymbalta *] 60 mg PO DAILY 05/01/15 Esomeprazole Magnesium [Nexium] 40 mg PO DAILY 08/11/16 Linaclotide [Linzess] 290 mcg PO DAILY 08/11/16 Metoprolol Succinate 25 mg PO DAILY 08/11/16 Oxybutynin Chloride [Ditropan*] 5 mg PO BID 08/11/16 Potassium Chloride 10 meq PO DAILY 08/11/16 Rabeprazole Sodium [Aciphex] 20 mg PO BID 08/11/16 Tiotropium [place] [Spiriva Respimat] 1 puff IH DAILY 08/11/16 Furosemide [Lasix*] 80 mg PO DAILY 12/10/16 Cefdinir [Omnicef] 300 mg PO BID #14 capsule 12/11/16 Levofloxacin [Levaquin] 500 mg PO DAILY #10 tablet 11/03/17 metroNIDAZOLE [Flagyl] 500 mg PO Q6H #40 tablet 11/03/17 - Past Medical/Surgical History Diabetic: No -: COPD on home oxygen -: GERD with hiatal hernia -: HTN -: Chronic neck/back pain -: Former tobacco use -: Bladder hyperactivity -: Depression -: Narcolepsy -: Obstructive sleep apnea on CPAP -: Bladder scope -: Tubal ligation -: Carpal tunnel surgery -: cervical surgery -: Lumbar surgery -: Cholecystectomy Psychosocial/ Personal History: Patient is - Family History Father -: Cancer, Other (see notes) (Crohn's disease) Mother -: Cancer (Lung cancer) Notes: Crohns Brother -: Hypertension, Cancer, Kidney disease Sister -: Cancer, Kidney disease Notes: Colon cancer` - Social History Smoking Status: Former smoker Alcohol use: No CD- Drugs: No Caffeine use: Yes Place of Residence: Home Review of Systems General: As per HPI Eyes: Unremarkable ENT: Unremarkable Respiratory: Unremarkable Cardiovascular: Unremarkable Gastrointestinal: Nausea, Vomiting, Abdominal Pain, Constipation, As per HPI Musculoskeletal: Unremarkable Integumentary: Unremarkable Neurological: Unremarkable Lymphatics: Unremarkable Physical Examination - Physical Exam General: Alert, In no apparent distress, Oriented x3, Cooperative HEENT: Atraumatic, Normocephalic, Other (Dry mucous membranes) Neck: Supple, No Thyromegaly Respiratory: Clear to auscultation bilaterally, Normal air movement Cardiovascular: Normal pulses, Regular rate/rhythm Gastrointestinal: Normal bowel sounds, Non-distended, No masses, No rebound, No guarding, Tenderness (Pain to the left lower quadrant) Musculoskeletal: No erythema, No tenderness, No warmth Integumentary: No erythema, No warmth, No cyanosis, Tenderness/swelling ( Minimal pitting edema to the lower extremities bilateral) Neurological: Normal speech, Normal strength at 5/5 x4 extr, Normal tone, Normal affect - Studies Laboratory Data (last 24 hrs) 04/27/19 23:44: WBC 9.1, Hgb 12.0, Hct 37.0, Plt Count 307 04/27/19 23:44: Sodium 143, Potassium 2.7 L*, BUN 12, Creatinine 0.79, Glucose 98, Total Bilirubin 0.2, AST 17, ALT 20, Alkaline Phosphatase 109, Lipase 124 Assessment and Plan - Plan Impression: Left lower quadrant abdominal pain with nausea and vomiting secondary to suspected early partial proximal to mid small bowel obstruction versus ileus complicated with history of chronic constipation Hypokalemia secondary to above COPD on home oxygen Obstructive sleep apnea on CPAP at night Chronic CHF likely diastolic Hypertension Former tobacco use Plan: Left lower quadrant abdominal pain with nausea and vomiting secondary to suspected early partial proximal to mid small bowel obstruction versus ileus complicated with history of chronic constipation: Patient will be admitted for further evaluation and treatment. Will keep the patient NPO at this time. Will provide medication for nausea and abdominal pain. Provide DVT prophylaxis- Lovenox. No need for NG tube at this time but will monitor closely. If with more distension and pain patient may require NG tube. Will consult surgery to further evaluate. Will provide IV fluids. Will check lactic acid and pro calcitonin. Obtain blood cultures/urine culture/UA. No need for antibiotics at this time. Will continue to monitor closely. Patient reports recent passage of stool and gas. Patient with history of chronic constipation on medication. Family history of Crohn's. Will continue to monitor and reassess. Daytime hospitalist will resume care today. Anticipate discharge in the next 48 hr if with clinical improvement. Await recommendations from surgery. Hypokalemia secondary to above: Will monitor and replace appropriately. Replacement protocol in place. COPD on home oxygen: Continue with oxygen to maintain sats above 90%. Will provide COPD medication. Obstructive sleep apnea on CPAP at night: Will provide CPAP at night. Chronic CHF likely diastolic: Suspect diastolic dysfunction. Patient will be given IV fluids but will need to monitor and adjust appropriately. Will continue with IV Lasix at this time. This can be transition to oral Lasix once taking oral intake. Hypertension: Provide metoprolol IV to maintain adequate blood pressure control. This can be transition to oral medication will once taking oral intake. Former tobacco use: Continue with tobacco cessation. Discharge Plan: Home Plan to discharge in: 48 Hours - Advance Directives Does patient have a Living Will: No Does patient have a Durable POA for Healthcare: No - Code Status/Comfort Care Code Status Assessed: Yes (Patient is full code.) Time Spent Managing Pts Care (In Minutes): 55
[2019-04-28] MEDS ORDERED: METOPROLOL TARTRATE 5 MG/5 ML INJ IV PRN (03:56)
[2019-04-28] MEDS ORDERED: ONDANSETRON 4 MG/2 ML VIAL IV PRN (03:56)
[2019-04-28] MEDS ORDERED: SODIUM CHLORIDE 0.9% 10ML INJ IV PRN (03:56)
[2019-04-28] MEDS ORDERED: ACETAMINOPHEN 650MG/RECT SUPP RECT PRN (03:56)
[2019-04-28] MEDS ORDERED: ACETAMINOPHEN 500 MG TAB PO PRN (03:56)
[2019-04-28] MEDS ORDERED: ALBUTEROL 2.5 MG/3 ML NEB SOL NEB PRN (03:56)
[2019-04-28] MEDS: D5 0.45 NS 1,000 ML IV SCH ×2 (05:00→22:45)
[2019-04-28 05:32] LABS: Thyroid Stimulating Hormone 5.12 uIU/mL (0.360-3.740)
[2019-04-28 05:34] VITALS: BMI 32.9
[2019-04-28 05:34] LABS: Urine Appearance CLEAR; Urine Bilirubin NEGATIVE (NEG); Urine Blood NEGATIVE (NEG); Urine Color YELLOW; Urine Glucose NEGATIVE (NEG); Urine Protein NEGATIVE (NEG); Urine Specific Gravity 1.015 (1.005-1.030); Urine Urobilinogen 0.2 mg/dL (0.2-1.0)
[2019-04-28 05:44] LABS: Urine Culture Reflex Order NOT NEEDED
[2019-04-28 05:45] LABS: Urine Bacteria <20 /HPF (<20); Urine RBC NONE SEEN /HPF (NONE SEEN)
[2019-04-28] MEDS: HYDROMORPHONE HCL 1 MG/ML INJ IV PRN ×2 (05:58→09:45)
[2019-04-28] MEDS ORDERED: HYDROMORPHONE HCL 2 MG/ML inj IV ONE (07:39)
--- NOTE | 2019-04-28 07:45 | EKG ---
Test Date: 2019-04-27 Test Time: 23:37:04 Warehouse Pricing And Inventory Clerk: SANDIP MEASUREMENT RESULTS: Intervals: Rate: 74 NV: 156 QRSD: 80 QT: 388 QTc: 430 [place]: P: 50 NV: 156 QRS: 5 T: 60 INTERPRETIVE STATEMENTS: Normal sinus rhythm with sinus arrhythmia Normal ECG Compared to ECG 03/17/2019 20:26:24 No significant changes Electronically Signed On 04-28-19 07:44:10 CDT by Pedro Matos
[2019-04-28] MEDS: KCL 20 MEQ/100 mL IVPB 20 MEQ/100 ML BAG IV SCH ×4 (07:54→22:45)
[2019-04-28] MEDS: PANTOPRAZOLE 40 MG INJ IVP SCH (07:55)
[2019-04-28] MEDS: ENOXAPARIN 40 MG/0.4 ML SQ SCH (07:55)
[2019-04-28] MEDS: FUROSEMIDE 20 MG/ 2ML VIAL IV SCH ×2 (07:55→16:45)
[2019-04-28] MEDS: ARFORMOTEROL TARTRATE 15 MCG/2 ML VIAL.NEB NEB SCH ×2 (08:00→20:00)
[2019-04-28] MEDS: IPRATROPIUM BROM 0.5MG/2.5ML NEB PRN ×2 (08:00→20:30)
[2019-04-28] MEDS ORDERED: MORPHINE 2 MG/ML SYR IV PRN (10:01)
[2019-04-28] MEDS ORDERED: HYDROCODONE/APAP 5/325 MG TAB PO PRN (10:02)
--- NOTE | 2019-04-28 10:23 | RAD REPORT ---
EXAM DESCRIPTION: RAD - Chest Single View - 04/28/2019 12:32 am CLINICAL HISTORY: COPD, shortness of breath COMPARISON: March 17 chest film, November [address] chest TECHNIQUE: AP portable chest image was obtained 0001 hours . FINDINGS: Right lung field is clear. Interstitial pattern is stable in both lung franco. Patient has pronounced left hemidiaphragm elevation dating back to the prior imaging. No suspicious mass in the aortopulmonic window on the CT study. Trachea is midline. No failure or volume overload. Heart size i s upper normal. Pulmonary vasculature within normal limits. No measurable pleural effusion and no pne umothorax. No acute bony abnormality seen. No acute aortic findings suspected. IMPRESSION: No acute cardiopulmonary process. Chest findings are stable from comparison.
[2019-04-28] MEDS: PIPER/TAZO/NS 3.375gm 3.375 GM/100 ML BAG IVPB SCH ×2 (11:15→18:22)
[2019-04-28] MEDS ORDERED: HYDRALAZINE HCL 20 MG/ML VIAL IV PRN (12:10)
--- NOTE | 2019-04-28 13:19 | CON ---
Date of Consultation: 04/28/2019 Brief History Of Present Illness: Patient is a 59-year-old female, who presented to the [facility] with left flank and left lower quadrant abdominal pain beginning approximately 4 to 5 days ago . She states that the pain got significantly worse and radiated through to her lower back and she cruz s had similar episodes before in the past. She continues to have bowel function. 2 days ago was her last bowel movement which was normal, at that time, she had 2 bowel movements at that time. She con tinues to pass gas. She has had some nausea, but no vomiting and that has essentially improved since her admission, but the pain continues to be present in the left lower quadrant. It is a constant cr escendo-decrescendo type pain. She states similar to an episode of what she describes as diverticuli tis in the past. She does have chronic constipation, is maintained on Linzess. She has a GI doctor, who performed a colonoscopy 2 years ago, and recommended another followup colonoscopy 1 year from now . She states that she believes he found diverticulum as well as polyps at that time, which required removal. Past Medical History: Significant for COPD on home oxygen, GERD, hypertension, chronic neck and back pain, tobacco use, bladder hyperactivity, depression, narcolepsy, obstructive sleep apnea on CPAP. Past Surgical History: Includes a tubal ligation, bladder cystoscopy, carpal tunnel surgery, cervica l spine surgery, lumbar spine surgery, and cholecystectomy. Social History: She is . She is a former smoker. Denies alcohol or recreational drug use. Allergies: TO AMBIEN. Home Medications: Include Proventil, Nuvigil, Cymbalta, Nexium, Linzess, KCl, , Spiriva, L asix, Omnicef, Levaquin and Flagyl. Family History: Significant for Crohn disease, colon cancer, hypertension, kidney disease. Review of Systems: A 10-point review of systems other than HPI, denies. Physical Examination: Vital Signs: At the time of my examination, BMI is 32.9. Blood pressure 173/91. SpO2 is 98% on geovanni al cannula oxygen. Pulse is 89, respiratory rate 22, temperature 97.1. General: She is awake, alert, oriented. Psychiatric: She is appropriate. Conversive. She is in mild distress. HEENT: She is otherwise normocephalic. Neck: Supple. No JVD. Chest: Normal expansion and excursion. Cardiovascular: Regular rate and rhythm. Pulmonary: Decreased breath sounds bilaterally. Abdomen: Soft with mild left lower quadrant tenderness to palpation. No rebound. No guarding. No focal peritoneal signs. Well-healed surgical scars were evident. Abdomen: Obese generally. Extremities: No clubbing, cyanosis, or edema. Skin: Warm and dry. Laboratory Data: Reveals a white blood cell count of 9.1, hemoglobin is 12.0, hematocrit 37.0, plate let count is 307. Her neutrophils are 57%. Her sodium is 143, potassium 3.1, chloride 100, carbon d ioxide 36, BUN 12, creatinine 0.7, glucose is 98. Lactic acid 1.4. Total bilirubin 0.2, AST 17, ALT 20, alkaline phosphatase 109, lipase is 124. Procalcitonin less than 0.05. UA showed 5 to 10 squam ous cells. She had imaging performed which included a CT scan of the abdomen and pelvis, officially read as prom inent small bowel ileus versus early obstruction. No bowel inflammation or perforation. Normal appe ndix. No urinary calculus or urinary obstruction. Elevation of left hemidiaphragm. Hepatomegaly. Chronic degenerative changes of the spine with grade . Assessment/plan: This is a 59-year-old female who comes in with abdominal pain of uncertain etiology , possibly related to diverticulitis versus early possible bowel obstruction. 1.Continue IV fluid hydration. 2.Okay to give patient ice chips. 3.Serial abdominal exams. 4.We will recheck labs in a.m. and start prophylactic Zosyn as she is acting as a possible diverticu litis and is not currently covered for this. 5.Continue medical management per primary team. I will follow along with you. Thank you for this interesting consult. NGHIA/STEVE Voice ID: [id number] Report ID: [id number]
[2019-04-28] MEDS ORDERED: HYDROCODONE/APAP 10/325 TAB PO PRN (14:39)
[2019-04-28] MEDS: HYDROCODONE/APAP 10/325 TAB PO PRN ×2 (15:09→22:44)
[2019-04-28] MEDS: METRONIDAZOLE 500mg IVPB 500 MG/100 ML BAG IV SCH (16:44)
[2019-04-28] MEDS: MORPHINE 4 MG/ML SYR IV PRN ×2 (16:44→20:58)
[2019-04-29] MEDS: METRONIDAZOLE 500mg IVPB 500 MG/100 ML BAG IV SCH ×4 (00:58→23:53)
[2019-04-29] MEDS: PIPER/TAZO/NS 3.375gm 3.375 GM/100 ML BAG IVPB SCH ×3 (03:00→17:55)
[2019-04-29] MEDS: HYDROCODONE/APAP 10/325 TAB PO PRN ×4 (04:03→23:53)
[2019-04-29 05:34] LABS: Absolute Lymphocytes (CBC) 2.2 K/uL (0.7-4.9); Basophils % 0.5 % (0-1.3); Hematocrit 36.7 % (36.0-45.0); Lymphocytes % 22.8 % (15.3-44.8); MPV 7.4 fL (7.6-11.3); RBC Red Blood Cell Count 4.01 M/uL (3.86-4.86)
[2019-04-29 06:05] LABS: Magnesium 1.6 mg/dL (1.8-2.4); Phosphorus 2.7 mg/dL (2.5-4.9); Potassium 3.3 mmol/L (3.5-5.1)
[2019-04-29] MEDS ORDERED: POTASSIUM CL SA 10 MEQ TAB PO ONE ×2 (07:00→19:25)
[2019-04-29] MEDS ORDERED: MAGNESIUM SULFATE 1 gm IVPB 1 GM/100 ML BAG IV ONE (08:00)
[2019-04-29] MEDS: PANTOPRAZOLE 40 MG INJ IVP SCH (08:03)
[2019-04-29] MEDS: FUROSEMIDE 20 MG/ 2ML VIAL IV SCH ×2 (08:03→16:32)
[2019-04-29] MEDS: ARFORMOTEROL TARTRATE 15 MCG/2 ML VIAL.NEB NEB SCH ×2 (08:03→20:00)
[2019-04-29] MEDS: ENOXAPARIN 40 MG/0.4 ML SQ SCH (08:03)
[2019-04-29] MEDS: HYDRALAZINE HCL 20 MG/ML VIAL IV PRN ×2 (11:35→16:36)
[2019-04-29] MEDS: MORPHINE 2 MG/ML SYR IV PRN ×2 (13:34→20:37)
[2019-04-29 13:52] LABS: Magnesium 2.2 mg/dL (1.8-2.4); Potassium 3.3 mmol/L (3.5-5.1)
--- NOTE | 2019-04-29 13:56 | P.PN ---
Subjective Date of Service: 04/29/19 Primary Care Provider: Dr. Henson([place]) Chief Complaint: Abdominal pain Subjective: Improving (mutiple large BMs, ambulatory, pain improved) Physical Examination - Vital Signs Temperature: 97.9 F Blood Pressure: 173/92 Pulse: 102 Respirations: 18 Pulse Ox (%): 96 - Physical Exam General: Alert, In no apparent distress, Cooperative Gastrointestinal: Other (soft, mild LLQ TTP, ND, no guarding, no rebound) Assessment And Plan - Plan - Advance diet - ambulate with assist - incentive spirometry - continue medical management - follow up with GI as outpatient
--- NOTE | 2019-04-29 16:23 | PN ---
Subjective: Currently, she is lying in bed. She is very sleepy. She already took some pain medicat ion. She thinks her pain is somewhat better. She had a large bowel movement. She has no nausea, no vomiting. She continues to have some abdominal pain. Review of Systems: Otherwise as below. Objective: Vital Signs: Blood pressure 173/92, respiratory rate 18, pulse 102, temperature 97.9. General: Patient is sleeping, but arousable. Does not look in any distress. HEENT: Atraumatic, normocephalic. PERRLA. Oral mucosa is moist. Neck: Supple. No JVD. No bruits. Chest: Clear to auscultation. Good air entry. Heart: Regular rate and rhythm. S1, S2 normal. No gallop or murmur. Abdomen: Soft, nontender. No masses. No hepatosplenomegaly. Positive bowel sounds. Extremities: No clubbing, cyanosis, or edema. No calf tenderness. Neurologic: Grossly intact. Laboratory Data: Labs today; CBC within normal. Chemistry within normal except for potassium 3.3, g lucose 109, magnesium 1.6. Culture so far all negative except for UA showed mixed benjie. Assessment And Plan: 1.Abdominal pain with initially nausea, vomiting. ? Bowel obstruction secondary to stool impaction. Improved today after patient had a large bowel movement early this morning. We will reduce her med ication as patient seems oversedated. She is already on empiric antibiotic with Flagyl and Zosyn for possible diverticulitis. CT final report still pending. General Surgery is following. No role for NG tube at this point. Continue conservative management. I am okay with the patient place on clear liquids if Dr. Gomez agrees with that. 2.Pain, well controlled. Patient is oversedated. We will reduce morphine 2 mg every 4 hours and ox ycodone 10 mg every 6 hours. 3.Hypokalemia and hypomagnesemia. Patient on protocol, replace both. 4.Nausea, resolved. On Zofran p.r.n. 5.Deep vein thrombosis prophylaxis. Lovenox. 6.Discharge plan, most likely by tomorrow if the patient can advance diet today and patient tolerate d diet well. 7.History of obstructive sleep apnea, on CPAP at night. SARAH/STEVE Voice ID: [id number] Report ID: [id number]
[2019-04-29] MEDS: D5 0.45 NS 1,000 ML IV SCH (19:56)
[2019-04-29] MEDS: METOPROLOL TAR 25 MG TAB PO SCH (20:36)
[2019-04-30] MEDS ORDERED: PROPYLENE GLYCOL EACH EYE PRN (01:10)
--- NOTE | 2019-04-30 01:10 | P.PN ---
Subjective Date of Service: 04/30/19 Primary Care Provider: Dr. Henson([place]) Chief Complaint: Abdominal pain Subjective: Improving (Patient improving. Less pain noted. Patient having bowel movement and passage of gas. Patient is tolerating clear liquid diet.) Physical Examination - Vital Signs Temperature: 97.4 F Blood Pressure: 111/77 Pulse: 99 Respirations: 17 Pulse Ox (%): 100 - Physical Exam General: Alert, In no apparent distress, Oriented x3, Cooperative HEENT: Atraumatic Neck: Supple Respiratory: Clear to auscultation bilaterally, Normal air movement Cardiovascular: Normal pulses, Regular rate/rhythm Gastrointestinal: Normal bowel sounds, Soft and benign, Non-distended, No masses , No rebound, No guarding, Tenderness (Minimal pain to the left quadrant. improvement noted) Musculoskeletal: No erythema, No tenderness, No warmth Integumentary: No erythema, No warmth, No cyanosis Neurological: Normal speech, Normal strength at 5/5 x4 extr, Normal tone, Normal affect - Studies Medications List Reviewed: Yes Assessment & Plan Discharge Plan: Home Plan to discharge in: 24 Hours Physician Review Additional Text: Impression: Left lower quadrant abdominal pain with nausea and vomiting secondary to suspected early partial proximal to mid small bowel obstruction versus ileus complicated with history of chronic constipation Hypokalemia secondary to above COPD on home oxygen Obstructive sleep apnea on CPAP at night Chronic CHF likely diastolic Hypertension Former tobacco use Plan: Left lower quadrant abdominal pain with nausea and vomiting secondary to suspected early partial proximal to mid small bowel obstruction versus ileus complicated with history of chronic constipation: Patient has done well during the course of her stay. Patient is having bowel movement and passage of gas. Patient has been followed closely by surgery. No surgical intervention required at this time. Blood and urine cultures negative. Clear liquid diet initiated last night. Will Transition from full liquid to GI soft today. If able tolerate diet then will consider discharge later today or tomorrow- Tuesday. Continue to replace electrolytes. Continue incentive spirometer. Hospitalist Team will continue her care. Case discussed at length with surgery. Patient will likely require colonoscopy as an outpatient Hypokalemia secondary to above: Will monitor and replace appropriately. Replacement protocol in place. COPD on home oxygen: Continue with oxygen to maintain sats above 90%. Continue to provide COPD medication. Obstructive sleep apnea on CPAP at night: Will provide CPAP at night. Chronic CHF likely diastolic: Encourage oral intake. Transition to oral Lasix.. Hypertension: Will transition to oral metoprolol. Former tobacco use: Continue with tobacco cessation. Time Spent Managing Pts Care (In Minutes): 55
[2019-04-30] MEDS: MORPHINE 2 MG/ML SYR IV PRN ×2 (01:47→23:52)
[2019-04-30] MEDS: PIPER/TAZO/NS 3.375gm 3.375 GM/100 ML BAG IVPB SCH ×3 (03:57→17:57)
[2019-04-30] MEDS: HYDROCODONE/APAP 10/325 TAB PO PRN ×5 (04:28→20:23)
[2019-04-30] MEDS: METOPROLOL TAR 25 MG TAB PO SCH ×2 (05:37→17:57)
[2019-04-30 06:37] LABS: Absolute Lymphocytes (CBC) 2.9 K/uL (0.7-4.9); Basophils % 0.4 % (0-1.3); Hematocrit 36.2 % (36.0-45.0); Lymphocytes % 29.7 % (15.3-44.8); MPV 7.6 fL (7.6-11.3); RBC Red Blood Cell Count 3.96 M/uL (3.86-4.86)
[2019-04-30 06:59] LABS: Magnesium 2.1 mg/dL (1.8-2.4); Potassium 3.1 mmol/L (3.5-5.1)
[2019-04-30] MEDS ORDERED: POTASSIUM CL SA 10 MEQ TAB PO ONE (08:00)
[2019-04-30] MEDS: OXYBUTYNIN CHLORIDE 5 MG TAB PO SCH (08:24)
[2019-04-30] MEDS: ASCORBIC ACID 500 MG TABLET PO SCH (08:24)
[2019-04-30] MEDS: PANTOPRAZOLE 40MG TABLET PO SCH (08:24)
[2019-04-30] MEDS: FOLBIC 1 TAB PO SCH (08:24)
[2019-04-30] MEDS: FUROSEMIDE 20 MG TABLET PO SCH (08:24)
[2019-04-30] MEDS: MULTIVIT W/ MINERAL TAB PO SCH (08:24)
[2019-04-30] MEDS: DULOXETINE 30 MG CAP PO SCH (08:25)
[2019-04-30] MEDS: METRONIDAZOLE 500mg IVPB 500 MG/100 ML BAG IV SCH (08:25)
[2019-04-30] MEDS: ENOXAPARIN 40 MG/0.4 ML SQ SCH (08:26)
[2019-04-30] MEDS: ARFORMOTEROL TARTRATE 15 MCG/2 ML VIAL.NEB NEB SCH ×2 (08:30→20:00)
[2019-04-30] MEDS: HOME MED 1 EA UNK (Omega-3/Dha/Epa/Fish Oil [Omega 3 500 Softgel] 1 CAP) PO SCH (08:37)
[2019-04-30] MEDS: [UNRECOGNIZED DRUG - OTHER] PO SCH (08:37)
[2019-04-30] MEDS ORDERED: DULOXETINE 20 MG CAP PO SCH (09:00)
[2019-04-30] MEDS ORDERED: MONTELUKAST 10 MG TAB PO SCH ×2 (09:00→21:00)
--- NOTE | 2019-04-30 17:44 | RAD REPORT ---
EXAM DESCRIPTION: US - Lower Extremity Artery Uni Ltd - 04/30/2019 3:42 pm CLINICAL HISTORY: left leg pain COMPARISON: No comparisons TECHNIQUE: Doppler evaluation of the left lower ext arterial tree performed. Waveforms and velocity values were obtained along with visual inspection. FINDINGS: No occlusion or focal flow restricting lesion identifiable. No suspicious waveform pattern or suspicious velocity finding. Triphasic waveform pattern seen with the exception of a biphasic wav eform in the posterior tibial artery near the ankle. IMPRESSION: No significant left lower extremity peripheral vascular disease. No focal lesions seen.
[2019-05-01] MEDS: PIPER/TAZO/NS 3.375gm 3.375 GM/100 ML BAG IVPB SCH ×2 (02:37→11:00)
[2019-05-01] MEDS: HYDROCODONE/APAP 10/325 TAB PO PRN ×2 (02:57→09:17)
[2019-05-01 05:05] VITALS: TEMP 97.6
[2019-05-01] MEDS: METOPROLOL TAR 25 MG TAB PO SCH (05:10)
[2019-05-01 06:07] LABS: Magnesium 2.1 mg/dL (1.8-2.4); Phosphorus 3.5 mg/dL (2.5-4.9); Potassium 3.6 mmol/L (3.5-5.1)
[2019-05-01 06:22] LABS: Absolute Lymphocytes (CBC) 3.2 K/uL (0.7-4.9); Basophils % 0.2 % (0-1.3); Hematocrit 35.1 % (36.0-45.0); Lymphocytes % 36.2 % (15.3-44.8); MPV 7.9 fL (7.6-11.3); RBC Red Blood Cell Count 3.76 M/uL (3.86-4.86)
[2019-05-01] MEDS: ARFORMOTEROL TARTRATE 15 MCG/2 ML VIAL.NEB NEB SCH (08:00)
--- NOTE | 2019-05-01 08:41 | P.PN ---
Subjective Date of Service: 05/01/19 Primary Care Provider: Dr. Henson([place]) Chief Complaint: Abdominal pain Subjective: Improving (Pain is almost completely gone.) Physical Examination - Vital Signs Temperature: 97.6 F Blood Pressure: 131/73 Pulse: 80 Respirations: 16 Pulse Ox (%): 97 - Physical Exam General: Alert, In no apparent distress, Cooperative Gastrointestinal: Soft and benign, Non-distended, No ascites, No tenderness, No masses, No rebound, No guarding - Studies Medications List Reviewed: Yes Assessment And Plan - Plan - Advance diet - ambulate with assist - incentive spirometry - continue medical management - follow up with GI as outpatient Physician Review Additional Text: Impression: Left lower quadrant abdominal pain with nausea and vomiting secondary to suspected early partial proximal to mid small bowel obstruction versus ileus complicated with history of chronic constipation Hypokalemia secondary to above COPD on home oxygen Obstructive sleep apnea on CPAP at night Chronic CHF likely diastolic Hypertension Former tobacco use Plan: Left lower quadrant abdominal pain with nausea and vomiting secondary to suspected early partial proximal to mid small bowel obstruction versus ileus complicated with history of chronic constipation: Patient has done well during the course of her stay. Patient is having bowel movement and passage of gas. Patient has been followed closely by surgery. No surgical intervention required at this time. Blood and urine cultures negative. Clear liquid diet initiated last night. Will Transition from full liquid to GI soft today. If able tolerate diet then will consider discharge later today or tomorrow- Tuesday. Continue to replace electrolytes. Continue incentive spirometer. Hospitalist Team will continue her care. Case discussed at length with surgery. Patient will likely require colonoscopy as an outpatient Hypokalemia secondary to above: Will monitor and replace appropriately. Replacement protocol in place. COPD on home oxygen: Continue with oxygen to maintain sats above 90%. Continue to provide COPD medication. Obstructive sleep apnea on CPAP at night: Will provide CPAP at night. Chronic CHF likely diastolic: Encourage oral intake. Transition to oral Lasix.. Hypertension: Will transition to oral metoprolol. Former tobacco use: Continue with tobacco cessation.
[2019-05-01] MEDS: [UNRECOGNIZED DRUG - OTHER] PO SCH (09:00)
[2019-05-01] MEDS: HOME MED 1 EA UNK (Omega-3/Dha/Epa/Fish Oil [Omega 3 500 Softgel] 1 CAP) PO SCH (09:00)
[2019-05-01] MEDS ORDERED: POTASSIUM CL SA 10 MEQ TAB PO ONE (09:00)
[2019-05-01] MEDS: PANTOPRAZOLE 40MG TABLET PO SCH (09:13)
[2019-05-01] MEDS: FOLBIC 1 TAB PO SCH (09:13)
[2019-05-01] MEDS: MULTIVIT W/ MINERAL TAB PO SCH (09:13)
[2019-05-01] MEDS: ASCORBIC ACID 500 MG TABLET PO SCH (09:14)
[2019-05-01] MEDS: DULOXETINE 30 MG CAP PO SCH (09:14)
[2019-05-01] MEDS: OXYBUTYNIN CHLORIDE 5 MG TAB PO SCH (09:14)
[2019-05-01] MEDS: ENOXAPARIN 40 MG/0.4 ML SQ SCH (09:15)
[2019-05-01] MEDS: FUROSEMIDE 20 MG TABLET PO SCH (09:15)
[2019-05-01 09:50] VITALS: O2SAT 100
--- NOTE | 2019-05-01 11:27 | RAD REPORT ---
EXAM DESCRIPTION: CT - Stone Protocol - 04/28/2019 3:10 am CLINICAL HISTORY: 59 years Female ABD PAIN TECHNIQUE: Contiguous axial images obtained through the abdomen and pelvis without IV contrast. Co erinn and sagittal reformatted images provided. This CT exam was performed according to our departmental dose-optimization program, which includes on e or more of the following dose reduction techniques: automated exposure control, adjustment of the m A and/or kV according to patient size, and/or use of iterative reconstruction technique. COMPARISON: No prior exams provided for comparison. FINDINGS: There are no renal, ureteral, or bladder calculi. There is no hydronephrosis or perinephri c stranding on either side. Tiny hyperdense cyst in the right kidney. There are a few mildly dilated loops of jejunal and proximal ileum in the left central abdomen. The m id and distal ileum are collapsed. Distinct transition point not identified. No bowel inflammation. Normal appendix. No free intraperitoneal air, abscess, or ascites. There is elevation of the left hemidiaphragm with left basilar atelectasis, incompletely imaged. The liver is enlarged without focal lesion on this noncontrast study. Prior cholecystectomy without b iliary dilatation. Visualized portions of the spleen are normal. Bilateral adrenal glands, left kidney, uterus, adnexa, and urinary bladder are normal. Atherosclerosis without abdominal aortic aneurysm or retroperitoneal hemorrhage. Chronic degenerative changes throughout the spine with grade 1-2 anterolisthesis of L4 on L5. No frac ture. IMPRESSION: Proximal/mid small bowel ileus vs. early obstruction. No bowel inflammation or perforati on. Normal appendix. No urinary calculus or urinary obstruction. Elevation of the left hemidiaphragm. Hepatomegaly. Chronic degenerative changes in the spine with grade 1-2 anterolisthesis of L4 on L5. Electronically signed by: Lauren Leach MD 04/28/2019 2:05 AM CDT Due to temporary technical issues with the PACS/Fluency reporting system, reports are being signed by the in house radiologist as a courtesy to ensure prompt reporting. The interpreting radiologist is f ully responsible for the content of the report.
[2019-05-01 14:29] VITALS: BP 141/89
--- NOTE | 2019-05-01 18:41 | P.DS ---
Admission Date: 04/30/19 Discharge Date: 05/01/19 Primary Care Provider: Dr. Henson([place]) Disposition: ROUTINE DISCHARGE Discharge Condition: GOOD Reason for Admission: Abdominal pain - Problems (1) Partial small bowel obstruction Status: Acute (2) Smoking addiction Status: Acute (3) HTN (hypertension) Onset Date: 11/03/17 Status: Chronic Qualifiers: Hypertension type: essential hypertension Qualified Code(s): I10 - Essential (primary) hypertension Brief History of Present Illness: 59-year-old female presented to the emergency room with left lower quadrant abdominal pain. Patient has reported left lower quadrant abdominal pain over the past 4-5 days. She rates the pain about a 10/10. No radiation pain noted. She had some nausea and vomiting the last 2 days. She has been able to the eat. She reports passing gas today. She also reports passing stool today. Patient with history of diverticulitis in the past. Patient also has chronic constipation. No recent illness noted. She denies any fever, chills. Patient came to the ER due to increasing pain. In the ER patient evaluated. White count 9.1, hemoglobin 12. Sodium 143, potassium 2.7. BUN of 12, creatinine 0.7 with a GFR of greater than 70. Glucose 98. Lipase unremarkable. LFT unremarkable. CT scan shows proximal mid early partial small-bowel obstruction versus ileus. Patient will be admitted for further evaluation and treatment. When I saw the patient the ER, she appeared stable. Patient was being given medication for pain. Patient gets most of her care in [facility]. She has underlying COPD on home oxygen, obstructive sleep apnea, GERD with hiatal hernia , hypertension, and CHF. Hospital Course: Overall during the hospital stay patient remained stable Patient was initially admitted to the hospital for abdominal pain nausea vomiting and was found to have small partial small bowel obstruction which most likely was secondary to chronic pain medication abuse along with smoking. Patient had general surgery consulted here in the hospital who thought that patient's pain and x-ray was most consistent with diverticulitis versus partial small bowel obstruction. Patient was initially kept NPO however when she was able to pass gas and had a bowel movement her diet was advanced and he tolerated well without having any nausea vomiting. At that time patient was then discharged home under stable condition was given prescription for ciprofloxacin and Flagyl to go home with. Vital Signs/Physical Exam: Temp Pulse Resp BP Pulse Ox 97.6 F 87 20 141/89 H 99 05/01/19 12:00 05/01/19 12:00 05/01/19 12:00 05/01/19 12:00 05/01/19 12:00 General: Alert, In no apparent distress HEENT: Atraumatic, PERRLA, EOMI Neck: Supple, JVD not distended Respiratory: Clear to auscultation bilaterally, Normal air movement Cardiovascular: Regular rate/rhythm, Normal S1 S2 Gastrointestinal: Normal bowel sounds, No tenderness Musculoskeletal: No tenderness Integumentary: No rashes Neurological: Normal speech, Normal tone, Normal affect Lymphatics: No axilla or inguinal lymphadenopathy Laboratory Data at Discharge: WBC 8.8 K/uL (4.3-10.9) 05/01/19 05:32 Hgb 11.8 g/dL (12.0-15.0) L 05/01/19 05:32 Hct 35.1 % (36.0-45.0) L 05/01/19 05:32 Plt Count 290 K/uL (152-406) 05/01/19 05:32 Sodium 139 mmol/L (136-145) 05/01/19 05:32 Potassium 3.6 mmol/L (3.5-5.1) 05/01/19 05:32 BUN 7 mg/dL (7-18) 05/01/19 05:32 Creatinine 0.72 mg/dL (0.55-1.3) 05/01/19 05:32 Glucose 114 mg/dL (74-106) H 05/01/19 05:32 Phosphorus 3.5 mg/dL (2.5-4.9) 05/01/19 05:32 Magnesium 2.1 mg/dL (1.8-2.4) 05/01/19 05:32 Total Bilirubin 0.2 mg/dL (0.2-1.0) 04/27/19 23:44 AST 17 U/L (15-37) 04/27/19 23:44 ALT 20 U/L (12-78) 04/27/19 23:44 Alkaline Phosphatase 109 U/L (45-117) 04/27/19 23:44 Lipase 124 U/L (73-393) 04/27/19 23:44 Home Medications: Armodafinil [Nuvigil] 1 tab PO DAILY 04/28/19 Ascorbic Acid [Vitamin C] 1 cap PO DAILY 04/28/19 Dicyclomine [Bentyl*] 20 mg PO DAILY PRN 04/28/19 Duloxetine [Cymbalta *] 60 mg PO DAILY 04/28/19 Esomeprazole Mag Trihydrate [Nexium] 40 mg PO DAILY 04/28/19 Fluticasone/Umeclidin/Vilanter [Trelegy Ellipta 100-62.5-25] 1 puff IN DAILY 03/09 Furosemide [Lasix*] 40 mg PO DAILY 04/28/19 Linaclotide [Linzess] 1 tab PO DAILY 04/28/19 Metoprolol Tartrate [Lopressor*] 1 tab PO DAILY 04/28/19 Montelukast [Singulair*] 1 tab PO DAILY 04/28/19 Mv-Mn/Folic Acid/Calcium/Vit K [Women's 50 Plus Multivit Tab] 1 tab PO DAILY 03/09 [place]-3/Dha/Epa/Fish Oil [[place] 3 500 Softgel] 1 cap PO DAILY 04/28/19 Oxybutynin Chloride [Ditropan*] 1 tab PO DAILY 04/28/19 Potassium Chloride [Klor-Con M10] 1 tab PO DAILY 04/28/19 Propylene Glycol [Systane Balance] 1 drop EACH EYE DAILY PRN 04/28/19 Vit B12/Iod/mg/Zn/Se/Herb#193 [Adrenoid Capsule] 1 cap PO DAILY 04/28/19 Vit D3/Folic Acid/B2/B6/B12 [Folgard Tablet] 1 tab PO DAILY 04/28/19 Ciprofloxacin HCl [Cipro 500 MG Tablet] 500 mg PO BID #28 tab 05/01/19 metroNIDAZOLE [Flagyl] 500 mg PO Q8H #42 tablet 05/01/19 New Medications: Ciprofloxacin HCl [Cipro 500 MG Tablet] 500 mg PO BID #28 tab metroNIDAZOLE [Flagyl] 500 mg PO Q8H #42 tablet Diet: Regular Activity: Ad cary Followup: Mary Otero MD [ACTIVE - CAN ADMIT] - Hernan Floyd MD [ACTIVE - CAN ADMIT] - Alfredo Moss MD [ASSOCIATE-ACTIVE - CAN ADMIT] -
== END 2019-05-01 13:23 | disposition home or self-care (01) | DRG 389 ==
LOC: ER 21:54 → ERHOLD 04-28 03:15 → 2ND 04-28 03:53 → OBSVTOIN 04-30 08:06
PROVIDERS: ADMIT Family Medicine; ATTEND Family Medicine
DX: K56.600 Partial intestinal obstruction, unspecified as to cause (principal); I50.32 Chronic diastolic (congestive) heart failure; I11.0 Hypertensive heart disease with heart failure; G47.33 Obstructive sleep apnea (adult) (pediatric); J44.9 Chronic obstructive pulmonary disease, unspecified; E87.6 Hypokalemia; E83.42 Hypomagnesemia; Z87.891 Personal history of nicotine dependence; Z99.81 Dependence on supplemental oxygen
CPT/HCPCS: 36415; 71045; 74176; 76377; 80048; 80076; 81001; 82805; 83605; 83690; 83735; 84100; 84132; 84145; 84439; 84443; 84484; 85025; 87040; 87077; 87086; 87088; 87186; 93005; 93926; 94640; 94660; 94760; 96374; 96375; 99285; C9113; G0378; J0360; J1170; J1650; J1940; J2270; J2405; J2543; J3010; J3475; J7605

== ENCOUNTER 2021-06-08 09:36 | Emergency (ER) | payer OTHER ==
[2021-06-08 10:59] LABS: Protime INR 0.96
[2021-06-08 11:00] LABS: Absolute Lymphocytes (CBC) 1.2 K/uL (0.7-4.9); Basophils % 0.2 % (0-1.3); Hematocrit 39.2 % (36.0-45.0); Lymphocytes % 9.8 % (15.3-44.8); MPV 7.4 fL (7.6-11.3); RBC Red Blood Cell Count 4.19 M/uL (3.86-4.86)
[2021-06-08 11:05] LABS: ALT/SGPT 24 U/L (12-78); AST/SGOT 16 U/L (15-37); Albumin 3.9 g/dL (3.4-5.0); Alkaline Phosphatase 100 U/L (45-117); BUN Blood Urea Nitrogen 16 mg/dL (7-18); Bicarbonate 34 mmol/L (21-32); Bilirubin Direct 0.1 mg/dL (0-0.2); Bilirubin Total 0.4 mg/dL (0.2-1.0); Glucose Level 160 mg/dL (74-106); NT PRO-BNP 226 pg/mL (<125); Potassium 3.6 mmol/L (3.5-5.1); Protein, Total 7.1 g/dL (6.4-8.2); Sodium Level 142 mmol/L (136-145); Troponin (Emerg Dept Use Only) < 0.02 ng/mL (0.0-0.045)
--- NOTE | 2021-06-08 11:38 | RAD REPORT ---
EXAM DESCRIPTION: RAD - Chest Single View - 06/08/2021 10:52 am CLINICAL HISTORY: COPD COMPARISON: Chest Pa And Lat (2 Views) dated 11/18/2020; Chest Single View dated 04/28/2019; Chest Sing le View dated 03/17/2019; Chest Single View dated 11/02/2017 FINDINGS: Lines: None. Lungs: No evidence of edema or pneumonia. Linear scarring at the right lung base. Pleural: No significant pleural effusions or pneumothorax. Cardiac: The heart size is within normal limits. Bones: No acute fractures. Other: IMPRESSION: No acute cardiopulmonary disease. The patient may be a candidate for annual low dose lung cancer screening CT.
--- NOTE | 2021-06-08 12:00 | ER ---
Nurse's Notes [facility] Name: Maureen Lopez Age: 61 yrs Sex: Female : 1960 Arrival Date: 06/08/2021 Time: 09:39 Bed 13 Private MD: Diagnosis: Other specified diseases of upper respiratory tract;Trichomonal vulvovaginitis Presentation: 06/08 09:41 Chief complaint: Patient states: increased SOB x 2 weeks ago, pt reports hx of COPD. Pt aa5 states "I already had a round of steroids but didn't help". Denies cough. Pt currently on 4 L via [place] portable oxygen from home. 09:41 Coronavirus screen: shortness of breath. Ebola Screen: No symptoms or risks identified aa5 at this time. Initial Sepsis Screen: Does the patient meet any 2 criteria? No. Patient's initial sepsis screen is negative. Does the patient have a suspected source of infection? No. Patient's initial sepsis screen is negative. Risk Assessment: Do you want to hurt yourself or someone else? Patient reports no desire to harm self or others. Onset of symptoms was May 2021. 09:41 Acuity: ELIANE 3 aa5 09:41 Method Of Arrival: Wheelchair aa5 Historical: - Allergies: 09:41 ambien; aa5 - PMHx: 09:41 Atrial Fib; Bladder Hyperactivity; CHF; COPD; Hypertension; aa5 - Immunization history:: Client reports receiving the 2nd dose of the Covid vaccine, Flu vaccine is not up to date. - Social history:: Smoking status: Patient denies any tobacco usage or history of. Screenin:31 Abuse screen: Denies threats or abuse. Denies injuries from another. Nutritional tc5 screening: No deficits noted. Tuberculosis screening: No symptoms or risk factors identified. Fall Risk Assessment: 11:26 General: Appears uncomfortable, Behavior is agitated, anxious, pt reports she has bugs tc5 coming from the inside to the outside of her body. States here are also worms in her vagina that are coming out and she has pictures that she showed the doctor. Pt states she has pain in her feet, 7/10. Pt Bilat toes are purple in color and cool to touch, modeling noted to the BLE. . Vital Signs: 09:41 BP 147 / 70; Pulse 89; Resp 20 S; Temp 97.4(TE); Pulse Ox 100% on 4 lpm NC; Weight aa5 81.65 kg (R); Height 5 ft. 0 in. (152.40 cm); 11:30 BP 163 / 83; Pulse 99; Resp 20; Pulse Ox 99% 3 lpm ; Pain 7/10; tc5 12:49 BP 170 / 89; Pulse 87; Resp 22; Pulse Ox 99% 3 lpm ; Pain 7/10; tc5 09:41 Body Mass Index 35.15 (81.65 kg, 152.40 cm) aa5 ED Course: 09:39 Patient arrived in ED. mr 09:41 Arm band placed on. aa5 09:45 Triage completed. aa5 09:45 Patient placed in an exam room, on a stretcher. aa5 09:47 Krystyna Barajas MD is Attending Physician. sp3 10:19 Diana Palacios, RN is Primary Nurse. tc5 10:37 Basic Metabolic Panel Sent. tc5 10:37 CBC with Diff Sent. tc5 10:37 LFT's Sent. tc5 10:37 Magnesium Sent. tc5 10:37 NT PRO-BNP Sent. tc5 10:37 PT-INR Sent. tc5 10:37 Troponin (emerg Dept Use Only) Sent. tc5 10:52 XRAY Chest (1 view) In Process Unspecified. EDUT 11:57 Evie Lipscomb MD is Referral Physician. sp3 12:51 No provider procedures requiring assistance completed. IV discontinued, intact, tc5 bleeding controlled, No redness/swelling at site. Pressure dressing applied. Administered Medications: No medications were administered Outcome: 11:59 Discharge ordered by . sp3 12:51 Discharged to home via wheelchair, with family. tc5 12:51 Condition: stable 12:51 Discharge instructions given to patient, Pt instructed to call today and make appointment to see Primary care doctor as her feet are purple and needs to follow up with that SHANTI. 12:53 Patient left the ED. tc5 Signatures: Dispatcher [facility] MandujnaoArmida RN RN aa5 Krystyna Barajas MD MD sp3 Diana Palacios, GOLD RN tc5 Corrections: (The following items were deleted from the chart) 09:52 09:41 BP 147 / 70; Pulse 89bpm; Resp 20bpm; Spontaneous; Pulse Ox 100% RA; Temp 97.4F aa5 Temporal; 81.65 kg Reported; Height 5 ft. 0 in.; BMI: 35.1; aa5
--- NOTE | 2021-06-08 12:00 | EDPHYS ---
Physician Documentation [facility] Name: Maureen Lopez Age: 61 yrs Sex: Female : 1960 Arrival Date: 06/08/2021 Time: 09:39 Bed 13 Private MD: ED Physician Krystyna Barajas HPI: 06/08 10:11 This 61 yrs old Female presents to ER via Wheelchair with complaints of COPD sp3 Exacerbation. 10:11 61-year-old female with history of COPD, CHF, atrial fibrillation presents to the ED sp3 for cough congestion and shortness of breath. Patient states that she does not traverse outside of her home much in the last 2 years secondary to coronavirus pandemic. Today she states that she is coming in secondary to her existing old steroids not helping her with her symptoms as well as secondary complaints of body wide itching, vaginal itching, and stating that she "has worms all over her body and in her sex organs and between her toes." Patient proceeded then showed me pictures of her vagina claiming that there were "worms right there". Patient is actively using tape to push on her skin to "get all the eggs". Patient denies fever, headache, neck pain, chest pain, shortness of breath, abdominal pain, nausea, vomiting, diarrhea, syncope, neuro symptoms, any other ROS at this time. Remainder of ROS negative.. Historical: - Allergies: 09:41 ambien; aa5 - PMHx: 09:41 Atrial Fib; Bladder Hyperactivity; CHF; COPD; Hypertension; aa5 - Immunization history:: Client reports receiving the 2nd dose of the Covid vaccine, Flu vaccine is not up to date. - Social history:: Smoking status: Patient denies any tobacco usage or history of. ROS: 10:16 Constitutional: Negative for fever, chills, and weight loss, Eyes: Negative for injury, sp3 pain, redness, and discharge, ENT: Negative for injury, pain, and discharge, Neck: Negative for injury, pain, and swelling, Cardiovascular: Negative for chest pain, palpitations, and edema, Abdomen/GI: Negative for abdominal pain, nausea, vomiting, diarrhea, and constipation, Back: Negative for injury and pain, Neuro: Negative for headache, weakness, numbness, tingling, and seizure. 10:16 All other systems are negative. Exam: 10:17 Constitutional: This is a well developed, well nourished patient who is awake, alert, sp3 and in no acute distress. Head/Face: Normocephalic, atraumatic. Eyes: Pupils equal round and reactive to light, extra-ocular motions intact. Lids and lashes normal. Conjunctiva and sclera are non-icteric and not injected. Cornea within normal limits. Periorbital areas with no swelling, redness, or edema. ENT: Nares patent. No nasal discharge, no septal abnormalities noted. External auditory canals are clear. Oropharynx with no redness, swelling, or masses, exudates, or evidence of obstruction, uvula midline. Mucous membranes moist. Neck: Trachea midline, no thyromegaly or masses palpated, and no cervical lymphadenopathy. Supple, full range of motion without nuchal rigidity, or vertebral point tenderness. No Meningismus. Chest/axilla: Normal chest wall appearance and motion. Nontender with no deformity. No lesions are appreciated. Cardiovascular: Regular rate and rhythm with a normal S1 and S2. No gallops, murmurs, or rubs. Normal PMI, no JVD. No pulse deficits. Abdomen/GI: Soft, non-tender, with normal bowel sounds. No distension or tympany. No guarding or rebound. No evidence of tenderness throughout. Back: No spinal tenderness. No costovertebral tenderness. Full range of motion. MS/ Extremity: Pulses equal, no cyanosis. Neurovascular intact. Full, normal range of motion. Neuro: Awake and alert, GCS 15, oriented to person, place, time, and situation. Cranial nerves II-XII grossly intact. Motor strength 5/5 in all extremities. Sensory grossly intact. Cerebellar exam normal. Normal gait. Psych: Awake, alert, with orientation to person, place and time. Behavior, mood, and affect are within normal limits. 10:17 Respiratory: Scattered wheeze present otherwise clear lungs with no rales. Normal respiratory effort without tachypnea. Pulse oxygenation on her home O2 levels of 4 L is 98%.. 10:17 Skin: Diffuse erythematous rash consistent with patient scratching and likely pruritus underlying is present on her lower extremities from the knees down. Groin rash is present with erythema without blanching. No other swelling, crusting, weeping is present. Nikolsky sign is negative on all findings. No subcu air or other signs or symptoms consistent with necrosis are present.. 10:39 ECG was reviewed by the Attending Physician. EKG demonstrates normal sinus rhythm at 90 sp3 bpm with normal intervals, normal QRS, normal axis, normal ST/T-segments without evidence of ischemia. Vital Signs: 09:41 BP 147 / 70; Pulse 89; Resp 20 S; Temp 97.4(TE); Pulse Ox 100% on 4 lpm NC; Weight aa5 81.65 kg (R); Height 5 ft. 0 in. (152.40 cm); 11:30 BP 163 / 83; Pulse 99; Resp 20; Pulse Ox 99% 3 lpm ; Pain 7/10; tc5 12:49 BP 170 / 89; Pulse 87; Resp 22; Pulse Ox 99% 3 lpm ; Pain 7/10; tc5 09:41 Body Mass Index 35.15 (81.65 kg, 152.40 cm) aa5 MDM: 09:49 Patient medically screened. sp3 10:18 Data reviewed: vital signs, nurses notes. ED course: Will work patient up for COPD sp3 exacerbation versus bronchitis versus CHF. Chest x-ray, EKG, labs pending. Regarding her skin and infectious findings, will treat with MetroGel symptomatically as well as oral Flagyl. I do not see signs or symptoms of scabies, insect infestation, or any other parasitic infection at this time.. 11:56 ED course: Laboratory results reviewed. No acute significant abnormality and chest sp3 x-ray is clear. I meant highly suspicious of a respiratory infection and therefore patient does not need any steroids, beta agonist inhalers, or antibiotics at this time from that standpoint. Given patient's persistence that she has SPECTROGRAPHER symptoms of trichomonas, we will electively prophylactically treat her. Patient told that she is to follow-up with her property maintenance technician for further evaluations and regarding the Pap smear that she is requesting. We will also place on oral Flagyl.. 06/08 10:01 Order name: Basic Metabolic Panel; Complete Time: 11:24 sp3 06/08 10:01 Order name: CBC with Diff sp3 06/08 10:01 Order name: LFT's; Complete Time: 11:24 sp3 06/08 10:01 Order name: Magnesium; Complete Time: 11:24 sp3 06/08 10:01 Order name: NT PRO-BNP; Complete Time: 11:24 sp3 06/08 10:01 Order name: PT-INR; Complete Time: 11:24 sp3 06/08 10:01 Order name: Troponin (emerg Dept Use Only); Complete Time: 11:24 sp3 06/08 10:01 Order name: XRAY Chest (1 view); Complete Time: 11:55 sp3 06/08 10:01 Order name: EKG; Complete Time: 10:02 sp3 06/08 10:01 Order name: Cardiac monitoring; Complete Time: 11:24 sp3 06/08 10:40 Order name: COVID-19 (Coronavirus) Document "Date of Onset" if Symptomatic bd 06/08 11:25 Order name: SARS-COV-2 RT PCR EDMS 06/08 10:01 Order name: EKG - Nurse/Tech; Complete Time: 10:37 sp3 06/08 10:01 Order name: IV Saline Lock; Complete Time: 10:37 sp3 06/08 10:01 Order name: Labs collected and sent; Complete Time: 10:37 sp3 06/08 10:01 Order name: O2 Per Protocol; Complete Time: 10:37 sp3 06/08 10:01 Order name: O2 Sat Monitoring; Complete Time: 10:37 sp3 Administered Medications: No medications were administered Disposition Summary: 06/08/21 11:59 Discharge Ordered Location: Home sp3 Condition: Stable sp3 Diagnosis - Other specified diseases of upper respiratory tract sp3 - Trichomonal vulvovaginitis sp3 Followup: sp3 - With: Evie Lipscomb MD - When: Upon discharge from the Emergency Department - Reason: Continuance of care Discharge Instructions: - Discharge Summary Sheet sp3 - Trichomoniasis sp3 - Upper Respiratory Infection, Adult sp3 Forms: - Medication Reconciliation Form sp3 - Thank You Letter sp3 - Antibiotic Education sp3 - Prescription Opioid Use sp3 Prescriptions: - Flagyl 500 mg Oral Tablet - take 1 tablet by ORAL route every 12 hours for 7 days; 14 tablet; Refills: 0, sp3 Product Selection Permitted - Metronidazole 0.75 % Vaginal Gel - insert 37.5 milligrams by VAGINAL route once daily As needed in the morning and sp3 evening; 1 tube; Refills: 0, Product Selection Permitted Signatures: Dispatcher Med[employer] EDArmida Roper, RN RN aa5 Krystyna Barajas MD MD sp3 Corrections: (The following items were deleted from the chart) 11:25 10:40 CORONAVIRUS ordered. EDMS LAGUERRE
[2021-06-08 13:01] VITALS: TEMP 97.4
[2021-06-08 13:03] VITALS: O2SAT 99
[2021-06-08 13:04] VITALS: BP 170/89
[2021-06-08 13:15] LABS: Blood Morphology Comment NOT SEEN (NOT SEEN); Platelet Estimate ADEQ; White Blood Cell Scan OK (OK)
== END 2021-06-08 12:53 | disposition home or self-care (01) ==
LOC: ER 09:36
DX: J39.8 Other specified diseases of upper respiratory tract (principal); A59.01 Trichomonal vulvovaginitis; J44.9 Chronic obstructive pulmonary disease, unspecified; I10 Essential (primary) hypertension; I50.9 Heart failure, unspecified; Z20.822 Contact with and (suspected) exposure to COVID-19
CPT/HCPCS: 93005; 85025; 80048; 36415; 83735; 85610; 80076; 84484; 83880; 71045; 99283; U0003

== ENCOUNTER 2021-06-22 17:03 | Inpatient (IN) | payer OTHER ==
[2021-06-22 17:35] LABS: Blood Gas Oxyhemoglobin 95.9 % (94-97); Blood O2 Saturation 97.9 % (92-98.5)
--- NOTE | 2021-06-22 17:43 | RAD REPORT ---
EXAM DESCRIPTION: RAD - Chest Single View - 06/22/2021 5:36 pm CLINICAL HISTORY: SOB COMPARISON: Chest Single View dated 06/08/2021; Chest Pa And Lat (2 Views) dated 11/18/2020; Chest Si ngle View dated 04/28/2019; Chest Single View dated 03/17/2019 FINDINGS: Lines: None. Lungs: No evidence of edema or pneumonia. Pleural: No significant pleural effusions or pneumothorax. Cardiac: The heart size is within normal limits. Bones: No acute fractures. Other: IMPRESSION: No acute cardiopulmonary disease.
[2021-06-22 17:59] LABS: Absolute Lymphocytes (CBC) 1.5 K/uL (0.7-4.9); Basophils % 0.2 % (0-1.3); Lymphocytes % 12.4 % (15.3-44.8); MPV 7.8 fL (7.6-11.3); RBC Red Blood Cell Count 4.67 M/uL (3.86-4.86)
[2021-06-22 18:05] LABS: Protime INR 1.02
[2021-06-22 18:25] LABS: ALT/SGPT 26 U/L (12-78); AST/SGOT 19 U/L (15-37); Albumin 3.7 g/dL (3.4-5.0); Alkaline Phosphatase 92 U/L (45-117); BUN Blood Urea Nitrogen 12 mg/dL (7-18); Bicarbonate 34 mmol/L (21-32); Bilirubin Direct 0.1 mg/dL (0-0.2); Bilirubin Total 0.4 mg/dL (0.2-1.0); Glucose Level 120 mg/dL (74-106); Magnesium 1.9 mg/dL (1.8-2.4); NT PRO-BNP 442 pg/mL (<125); Protein, Total 7.7 g/dL (6.4-8.2); Sodium Level 141 mmol/L (136-145); Troponin (Emerg Dept Use Only) 0.02 ng/mL (0.0-0.045)
[2021-06-22] MEDS ORDERED: LEVALBUTEROL 1.25 MG/3 ML NEB ONE (18:26)
[2021-06-22] MEDS ORDERED: METHYLPREDNISOLONE 125 MG INJ ONE (18:26)
[2021-06-22] MEDS ORDERED: NA CHLORIDE 0.9% 250 ML ONE (18:58)
[2021-06-22] MEDS ORDERED: METOPROLOL TARTRATE 5 MG/5 ML INJ IV ONE (18:58)
[2021-06-22] MEDS ORDERED: Levofloxacin 750mg IV 750 MG/150 ML BAG IV ONE (18:58)
--- NOTE | 2021-06-22 19:07 | ER ---
Nurse's Notes [facility] Name: Maureen Lopez Age: 61 yrs Sex: Female : 1960 Arrival Date: 06/22/2021 Time: 17:11 Bed 19 Private MD: Diagnosis: COPD/ Chronic obstructive pulmonary disease with (acute) exacerbation Presentation: 06/22 17:11 Chief complaint: EMS states: Pt. arrives via EMS due to feeling SOB for the last few jt3 hours. Pt. has past medical hx of COPD and CHF. Pt. arrives on Bipap. Pt. did not get relief being on 4L O2 at home. Alert and oriented x4 on arrival, but labored breathing. EMS administered 2 inches of Nitro paste. Pt. endorses generalized weakness for the last 4 days. Denies chest pain. Coronavirus screen: Vaccine status: Patient reports receiving the 2nd dose of the covid vaccine. Ebola Screen: Patient negative for fever greater than or equal to 101.5 degrees Fahrenheit, and additional compatible Ebola Virus Disease symptoms Patient denies exposure to infectious person. Patient denies travel to an Ebola-affected area in the 21 days before illness onset. Initial Sepsis Screen: Does the patient meet any 2 criteria? RR > 20 per min. HR > 90 bpm. No. Patient's initial sepsis screen is negative. Does the patient have a suspected source of infection? No. Patient's initial sepsis screen is negative. Risk Assessment: Do you want to hurt yourself or someone else? Patient reports no desire to harm self or others. Onset of symptoms was June 22, 2021. 17:11 Method Of Arrival: EMS: [facility] jt3 17:11 Acuity: ELIANE 2 jt3 Triage Assessment: 17:15 General: Appears distressed, Behavior is cooperative, restless. Pain: Denies pain. jt3 Cardiovascular: Heart tones S1 S2 present Rhythm is sinus tachycardia. Respiratory: Reports shortness of breath labored breathing Breath sounds are diminished Breath sounds with wheezes bilaterally. Historical: - Allergies: 17:15 ambien; jt3 - Home Meds: 17:15 Aciphex 20 mg Oral TbEC 1 tab 2 times per day [Active]; metoprolol tartrate 25 mg Oral jt3 tab 1 tab 2 times per day [Active]; Lasix 80 mg Oral tab 1 tab once daily [Active]; aspirin 81 mg Oral chew 1 tab once daily [Active]; Ultram 50 mg Oral tab 1 tab every 4 hours [Active]; Cymbalta 60 mg Oral cpDR 1 cap once daily [Active]; - PMHx: 17:15 Atrial Fib; Bladder Hyperactivity; COPD; CHF; Hypertension; jt3 - Immunization history:: Adult Immunizations up to date. - Social history:: Smoking status: Patient denies any tobacco usage or history of. Screenin:18 Abuse screen: Denies threats or abuse. Denies injuries from another. Nutritional jt3 screening: No deficits noted. Tuberculosis screening: No symptoms or risk factors identified. Fall Risk None identified. Assessment: 17:18 Respiratory: Breath sounds are diminished Breath sounds with wheezes bilaterally. jt3 18:35 Reassessment: Patient states symptoms have improved. jt3 Vital Signs: 17:11 BP 157 / 129; Pulse 123; Resp 33; Temp 95.6; Pulse Ox 100% on BiPAP; Weight 75.3 kg; jt3 Height 5 ft. 4 in. (162.56 cm); 18:34 BP 139 / 96; Pulse 94; Resp 22; Pulse Ox 100% on BiPAP; jt3 17:11 Body Mass Index 28.49 (75.30 kg, 162.56 cm) jt3 ED Course: 17:11 Patient arrived in ED. bd 17:11 Lakhwinder Correa, RN is Primary Nurse. jt3 17:12 Serafin Fulton PA is PHCP. cp 17:12 Serafin Penn MD is Attending Physician. cp 17:15 Triage completed. jt3 17:15 Arm band placed on right wrist. jt3 17:18 Patient has correct armband on for positive identification. Placed in gown. Bed in low jt3 position. Call light in reach. Side rails up X2. 17:18 No provider procedures requiring assistance completed. Inserted saline lock: 20 gauge jt3 in right antecubital area, using aseptic technique. 17:36 XRAY Chest (1 view) In Process Unspecified. EDMS 19:06 Seun Kellogg PA is Hospitalizing Provider. cp 20:28 RSV Sent. df1 Administered Medications: 17:50 Drug: Xopenex (levalbuterol) (3) 1.25 mg Route: Inhalation; jt3 17:50 Drug: SOLU-Medrol (methylPrednisoLONE) 125 mg Route: IVP; Site: right antecubital; jt3 18:25 Drug: Lopressor (metoprolol) 5 mg Route: IVP; Site: right antecubital; jt3 18:35 Follow up: Response: No adverse reaction jt3 18:34 Drug: LevaQUIN (levofloxacin) 750 mg Volume: 150 ml; Route: IVPB; Infused Over: 90 jt3 mins; Site: right antecubital; 18:52 Drug: Potassium Effervescent Tablet 50 mEq Route: PO; jt3 18:52 Drug: Metoprolol 25 mg Route: PO; jt3 20:17 Drug: Xopenex (levalbuterol) (3) 1.25 mg Route: Inhalation; bs2 Outcome: 19:07 Decision to Hospitalize by Provider. danis 06/23 13:14 Patient left the ED. iw Signatures: Dispatcher [employer] EDMS Socorro Hussein Irene, RN RN iw Serafin Fulton PA PA cp Smith, Bridget, RN RN bs2 [place] df1 Lakhwinder Correa RN RN jt3
--- NOTE | 2021-06-22 19:07 | EDPHYS ---
Physician Documentation [facility] Name: Maureen Lopez Age: 61 yrs Sex: Female : 1960 Arrival Date: 06/22/2021 Time: 17:11 Bed 19 Private MD: ED Physician Serafin Pnen HPI: 06/22 17:20 This 61 yrs old Female presents to ER via EMS with complaints of Shortness of cp Breath. 17:20 The patient or guardian reports difficulty breathing. cp 17:20 Onset: The symptoms/episode began/occurred 2 day(s) ago, and became worse today. cp Associated signs and symptoms: Pertinent negatives: chest pain, diarrhea, fever, vomiting. Severity of symptoms: in the emergency department the symptoms have improved mildly, Patient placed on BIPAP by EMS and nitro paste placed on chest. Historical: - Allergies: 17:15 ambien; jt3 - Home Meds: 17:15 Aciphex 20 mg Oral TbEC 1 tab 2 times per day [Active]; metoprolol tartrate 25 mg Oral jt3 tab 1 tab 2 times per day [Active]; Lasix 80 mg Oral tab 1 tab once daily [Active]; aspirin 81 mg Oral chew 1 tab once daily [Active]; Ultram 50 mg Oral tab 1 tab every 4 hours [Active]; Cymbalta 60 mg Oral cpDR 1 cap once daily [Active]; - PMHx: 17:15 Atrial Fib; Bladder Hyperactivity; COPD; CHF; Hypertension; jt3 - Immunization history:: Adult Immunizations up to date. - Social history:: Smoking status: Patient denies any tobacco usage or history of. ROS: 17:25 Constitutional: Negative for body aches, chills, fever, poor PO intake. cp 17:25 Cardiovascular: Negative for chest pain, edema, palpitations. cp 17:25 Respiratory: Positive for shortness of breath, at rest. 17:25 Abdomen/GI: Negative for abdominal pain, nausea, vomiting, and diarrhea. 17:25 Eyes: Negative for injury, pain, redness, and discharge. cp 17:25 Neck: Negative for pain with movement, pain at rest, stiffness. cp 17:25 Neuro: Negative for altered mental status, dizziness, headache. 17:25 All other systems are negative. Exam: 17:30 Constitutional: The patient appears alert, awake, non-diaphoretic, non-toxic, well cp developed, well nourished, in obvious distress, moderately distressed. 17:30 Head/Face: Normocephalic, atraumatic. cp 17:30 Eyes: Periorbital structures: appear normal, Conjunctiva: normal, no exudate, no injection, Sclera: no appreciated abnormality, Lids and lashes: appear normal, bilaterally. 17:30 ENT: External ear(s): are unremarkable, Nose: is normal, Mouth: Lips: moist, Oral mucosa: moist, Posterior pharynx: Airway: no evidence of obstruction, patent. 17:30 Neck: ROM/movement: is normal, is supple, without pain, no range of motions limitations, no meningismus. 17:30 Chest/axilla: Inspection: normal, Palpation: crepitus, is not appreciated, tenderness, is not appreciated. 17:30 Cardiovascular: Rate: tachycardic, Rhythm: regular, Edema: ankle edema, that is very mild, JVD: is not appreciated. 17:30 Respiratory: moderate respiratory distress is noted, Respirations: labored breathing, that is moderate, tachypnea, that is moderate, Breath sounds: decreased breath sounds, that are moderate, throughout, wheezing: that is mild, is heard diffusely. 17:30 Abdomen/GI: Inspection: abdomen appears normal, Palpation: abdomen is soft and non-tender, in all quadrants. 17:30 Back: pain, is absent, ROM is normal. 17:30 Skin: cellulitis, is not appreciated. 17:30 Neuro: Orientation: to person, place \T\ time. Mentation: is normal, Motor: moves all fours, strength is normal, Sensation: is normal. 17:46 ECG was reviewed by the Attending Physician. cp Vital Signs: 17:11 BP 157 / 129; Pulse 123; Resp 33; Temp 95.6; Pulse Ox 100% on BiPAP; Weight 75.3 kg; jt3 Height 5 ft. 4 in. (162.56 cm); 18:34 BP 139 / 96; Pulse 94; Resp 22; Pulse Ox 100% on BiPAP; jt3 17:11 Body Mass Index 28.49 (75.30 kg, 162.56 cm) jt3 MDM: 17:13 Patient medically screened. nirmal 18:00 Differential diagnosis: bronchitis, flu, URI, CHF, pulmonary edema, pneumonia. cp 19:00 Data reviewed: vital signs, nurses notes, lab test result(s), EKG, radiologic studies, cp plain films. 19:00 Test interpretation: by ED physician or midlevel provider: ECG, plain radiologic cp studies. Response to treatment: the patient's symptoms have markedly improved after treatment, and as a result, I will admit patient. 06/22 17:20 Order name: Basic Metabolic Panel; Complete Time: 18:36 06/22 18:36 Interpretation: Normal except: K 3.0; CO2 34; GLUC 120. 06/22 17:20 Order name: CBC with Diff; Complete Time: 18:12 06/22 18:13 Interpretation: Normal except: WBC 12.30; DWIGHT% 82.6; LYM% 12.4; NEUT A 10.2. 06/22 17:20 Order name: LFT's; Complete Time: 18:36 06/22 17:20 Order name: Magnesium; Complete Time: 18:36 06/22 17:20 Order name: NT PRO-BNP; Complete Time: 18:36 06/22 18:36 Interpretation: Abnormal: NT PRO-BNP 442. 06/22 17:20 Order name: PT-INR; Complete Time: 18:12 06/22 17:20 Order name: Troponin (emerg Dept Use Only); Complete Time: 18:36 06/22 17:20 Order name: Lactate; Complete Time: 18:36 06/22 17:20 Order name: Procalcitonin; Complete Time: 18:36 06/22 17:20 Order name: Blood Culture Adult (2) 06/22 17:23 Order name: Influenza Screen (a \T\ B) 06/22 17:35 Order name: ABG Arterial Blood Gas; Complete Time: 17:45 EDNM 06/22 19:14 Order name: SARS-COV-2 RT PCR EDNM 06/22 17:20 Order name: XRAY Chest (1 view); Complete Time: 17:45 06/22 20:18 Order name: RSV bs2 06/22 21:30 Order name: Respiratory Syncytial Virus Ag EDNM 06/23 00:59 Order name: ABG Arterial Blood Gas EDNM 06/23 04:29 Order name: CBC with Automated Diff EDMS 06/23 05:06 Order name: Manual Differential EDMS 06/23 05:33 Order name: Comprehensive Metabolic Panel EDMS 06/23 05:33 Order name: Phosphorus EDMS 06/23 05:33 Order name: Lipid Profile EDMS 06/23 05:33 Order name: T4 Free EDMS 06/23 05:33 Order name: Magnesium EDMS 06/23 05:33 Order name: Thyroid Stimulating Hormone EDMS 06/23 05:33 Order name: Vitamin B12 Level EDMS 06/23 08:01 Order name: Glucose, Ancillary Testing EDMS 06/23 10:58 Order name: CT EDMS 06/23 11:41 Order name: Glucose, Ancillary Testing EDMS 06/22 17:20 Order name: EKG; Complete Time: 17:21 cp 06/22 17:20 Order name: Cardiac monitoring; Complete Time: 17:50 cp 06/22 17:20 Order name: EKG - Nurse/Tech; Complete Time: 17:50 cp 06/22 17:20 Order name: IV Saline Lock; Complete Time: 17:50 cp 06/22 17:20 Order name: Labs collected and sent; Complete Time: 17:50 cp 06/22 17:20 Order name: O2 Per Protocol; Complete Time: 17:24 cp 06/22 17:20 Order name: O2 Sat Monitoring; Complete Time: 17:24 cp 06/22 19:12 Order name: CONS Physician Consult EDMS 06/23 11:13 Order name: CT EDMS EC:46 Rate is 123 beats/min. Rhythm is regular. ME interval is normal. QRS interval is cp normal. QT interval is normal. Interpreted by me. Reviewed by me. Administered Medications: 17:50 Drug: Xopenex (levalbuterol) (3) 1.25 mg Route: Inhalation; jt3 17:50 Drug: SOLU-Medrol (methylPrednisoLONE) 125 mg Route: IVP; Site: right antecubital; jt3 18:25 Drug: Lopressor (metoprolol) 5 mg Route: IVP; Site: right antecubital; jt3 18:35 Follow up: Response: No adverse reaction jt3 18:34 Drug: LevaQUIN (levofloxacin) 750 mg Volume: 150 ml; Route: IVPB; Infused Over: 90 jt3 mins; Site: right antecubital; 18:52 Drug: Potassium Effervescent Tablet 50 mEq Route: PO; jt3 18:52 Drug: Metoprolol 25 mg Route: PO; jt3 20:17 Drug: Xopenex (levalbuterol) (3) 1.25 mg Route: Inhalation; bs2 Disposition: 06/23 23:11 Co-signature as Attending Physician, Serafin Penn MD I agree with the assessment and nirmal plan of care. Disposition Summary: 06/22/21 19:07 Hospitalization Ordered Hospitalization Status: Inpatient Admission cp Provider: Seun Kellogg cp Condition: Stable cp Problem: an acute exacerbation cp Symptoms: have improved cp Bed/Room Type: Standard cp Location: Telemetry/MedSurg (Inpatient)(06/23/21 11:45) bd Room Assignment: 204(06/23/21 11:45) bd Diagnosis - COPD/ Chronic obstructive pulmonary disease with (acute) exacerbation cp Forms: - Medication Reconciliation Form cp - SBAR form cp Signatures: Dispatcher [employer] EDSocorro Abarca Corey, MD MD cha Page, Corey, PA PA cp Madeleine Paez, RN RN cg Sonia Kong RN RN bs2 Lakhwinder Correa RN RN jt3 Corrections: (The following items were deleted from the chart) 06/22 19:14 17:23 CORONAVIRUS+MR.LAB.BRZ ordered. EDNM EDMS 20:40 19:07 Telemetry/MedSurg (Inpatient) cp cg 20:40 19:07 cp cg 06/23 11:45 06/22 20:40 [facility] ER HOLD cg bd 06/23 11:45 11 20:40 ERHOLD- cg bd
[2021-06-22] MEDS ORDERED: METOPROLOL TAR 25 MG TAB ONE (19:42)
[2021-06-22] MEDS ORDERED: POTASSIUM 25 MEQ EFFERV TAB ONE (19:43)
[2021-06-22] MEDS ORDERED: IPRATROPIUM BROM 0.5MG/2.5ML ONE (20:58)
[2021-06-22] MEDS ORDERED: ALBUTEROL 2.5 MG/3 ML NEB SOL ONE (20:58)
--- NOTE | 2021-06-22 22:12 | P.HP ---
Certification for Inpatient Patient admitted to: Inpatient With expected LOS: >2 Midnights Patient will require the following post-hospital care: None Practitioner: I am a practitioner with admitting privileges, knowledge of patient current condition, hospital course, and medical plan of care. Services: Services provided to patient in accordance with Admission requirements found in Title 42 Section 412.3 of the Code of Federal Regulations <Seun Kellogg - Last Filed: 06/22/21 22:05> Patient History Date of Service: 06/22/21 Reason for admission: COPD exacerbation History of Present Illness: Ms. Lopez is a 61 yo F with COPD on home O2, CHF, afib, HTN, and TEJ who presents with SOB. EMS administered nitropaste and BiPAP. She was tachypneic and tachycardic upon arrival. She says for the past few days she has been feeling weak, SOB, sinus congestion. Denies fever, cough, N/V/D. Received IV antibiotics, IV steroids, and breathing treatments in the ED. She is refusing to wear BiPAP, and has switched to HFNC. Noted accessory muscle use and tripoding. Improved comfort after repeat breathing treatment. COVID, flu and RSV negative. For the past month, Ms. Lopez reports parasites coming out of her eyes, vaginal and anal areas. She believes her granddaughter has these same parasites. Per her daughter, she says the parasites are making her hair wet and eating her from the inside out. Daughter no longer feels safe leaving her child with her mother. Daughter says this has never happened in the past, believes her mother has been hypoxic at home due to her oxygen malfunctioning at home. Also concerned for polypharmacy interactions, medication changes. Patient is scheduled to see a boom storage next week for her symptoms. Recent UA without acute findings. WBC 12.3, K 3, HCO3 34, Glu 120, BNP 442. CXR IMPRESSION: No acute cardiopulmonary disease. - Past Medical/Surgical History Diabetic: No -: COPD on home oxygen -: GERD with hiatal hernia -: HTN -: Chronic neck/back pain -: Former tobacco use -: Bladder hyperactivity -: Depression -: Narcolepsy -: Obstructive sleep apnea on CPAP -: Bladder scope -: Tubal ligation -: Carpal tunnel surgery -: cervical surgery -: Lumbar surgery -: Cholecystectomy Psychosocial/ Personal History: Patient is - Family History Father -: Cancer, Other (see notes) Mother -: Cancer Notes: Crohns Brother -: Hypertension, Cancer, Kidney disease Sister -: Cancer, Kidney disease Notes: Colon cancer` - Social History Smoking Status: Former smoker Alcohol use: No CD- Drugs: No Caffeine use: Yes Place of Residence: Home <Seun Kellogg - Last Filed: 06/22/21 22:05> Date of Service: 06/22/21 <Chandana Ambriz - Last Filed: 06/26/21 03:39> Allergies zolpidem tartrate [From Ambien] Adverse Reaction (Verified 08/11/16 02:49) hallucinations Home Medications: Ascorbic Acid [Vitamin C] 1 cap PO DAILY 04/28/19 B12/Iodin/Mag/Zinc/Ellen/Oidr625 [Adrenoid Capsule] 1 cap PO DAILY 04/28/19 Dicyclomine [Bentyl*] 20 mg PO BID 04/28/19 Duloxetine [Cymbalta *] 60 mg PO DAILY 04/28/19 Linaclotide [Linzess] 1 tab PO DAILY PRN 04/28/19 Hearne-3/Dha/Epa/Fish Oil [[place]ne 3 500 Softgel] 1 cap PO DAILY 04/28/19 Oxybutynin Chloride [Ditropan*] 1 tab PO BID 04/28/19 Vit D3/Folic Acid/B2/B6/B12 [Folgard Tablet] 1 tab PO DAILY 04/28/19 armodafiniL [Nuvigil] 1 tab PO DAILY 04/28/19 Aspirin [Aspirin EC] 1 tab PO DAILY 06/23/21 Calcium Carbonate [Calcium] 500 mg PO DAILY 06/23/21 Esomeprazole Mag Trihydrate [Nexium] 1 cap PO DAILY 06/23/21 Spironolactone 1 tab PO DAILY 06/23/21 Zinc 50 mg PO DAILY 06/23/21 Review of Systems 10-point ROS is otherwise unremarkable General: Malaise Eyes: Unremarkable ENT: Nose Congestion Respiratory: Shortness of Breath, SOB with Excertion Cardiovascular: Unremarkable Gastrointestinal: Unremarkable Genitourinary: Unremarkable Musculoskeletal: Unremarkable Integumentary: Unremarkable Neurological: Confusion Lymphatics: Unremarkable <Seun Kellogg - Last Filed: 06/22/21 22:05> Physical Examination - Physical Exam General: Alert, Oriented x3, Cooperative, Mild distress, Confused HEENT: Atraumatic, PERRLA, Mucous membr. moist/pink, EOMI, Sclerae nonicteric Neck: Supple, 2+ carotid pulse no bruit, No LAD, Without JVD or thyroid abnormality Respiratory: Diminished, Expiratory wheezes Cardiovascular: No edema, Normal pulses, Regular rate/rhythm, Normal S1 S2 Gastrointestinal: Normal bowel sounds, No tenderness Musculoskeletal: No tenderness Integumentary: No rashes Neurological: Normal strength at 5/5 x4 extr, Normal tone, Sensation intact, Abnormal speech, Abnormal affect Lymphatics: No axilla or inguinal lymphadenopathy - Studies Laboratory Data (last 24 hrs) 06/22/21 17:30: PT 11.7, INR 1.02 06/22/21 17:30: WBC 12.30 H, Hgb 14.3, Hct 44.0, Plt Count 332 06/22/21 17:30: Sodium 141, Potassium 3.0 L, BUN 12, Creatinine 0.65, Glucose 120 H, Magnesium 1.9, Total Bilirubin 0.4, AST 19, ALT 26, Alkaline Phosphatase 92 Microbiology Data (last 24 hrs): 06/22/21 18:28 Nasopharnyx Influenza Type A Antigen Screen - Final 06/22/21 18:28 Nasopharnyx Influenza Type B Antigen Screen - Final <Seun Kellogg - Last Filed: 06/22/21 22:05> - Studies Microbiology Data (last 24 hrs): 06/22/21 17:30 Blood - Blood Gram Stain - Final <Chandana Ambriz - Last Filed: 06/26/21 03:39> Assessment and Plan - Problems (Diagnosis) (1) Fear of parasites Current Visit: Yes Status: Acute (2) COPD with acute exacerbation Onset Date: 08/11/16 Current Visit: No Status: Acute (3) Hypokalemia Onset Date: 12/10/16 Current Visit: No Status: Acute (4) TEJ (obstructive sleep apnea) Current Visit: No Status: Chronic (5) HTN (hypertension) Onset Date: 11/03/17 Current Visit: No Status: Chronic Qualifiers: Hypertension type: essential hypertension Qualified Code(s): I10 - Essential (primary) hypertension - Plan pulm consulted, respiratory therapy consulted, on tele CTPE pending, CT head pending, repeat ABG continue IV steroids, IV antibiotics, breathing treatments, O2 PRN decongestants potassium replacement protocol stool ova and parasites, UA, UDS pending hydralazine PRN for BP spikes DVT ppx Discharge Plan: Home Plan to discharge in: 72 Hours - Advance Directives Does patient have a Living Will: No Does patient have a Durable POA for Healthcare: No - Code Status/Comfort Care Code Status Assessed: Yes (full code ) Critical Care: No Time Spent Managing Pts Care (In Minutes): 70 <Seun Kellogg - Last Filed: 06/22/21 22:05> - Problems (Diagnosis) (1) COPD with acute exacerbation Onset Date: 08/11/16 Current Visit: No Status: Acute (2) Narcolepsy Current Visit: Yes Status: Acute (3) Drug psychosis with hallucinations Current Visit: Yes Status: Acute (4) HTN (hypertension) Onset Date: 11/03/17 Current Visit: No Status: Chronic Qualifiers: Hypertension type: essential hypertension Qualified Code(s): I10 - Essential (primary) hypertension (5) TEJ (obstructive sleep apnea) Current Visit: No Status: Chronic <Chandana Ambriz - Last Filed: 06/26/21 03:39> Date of Service: 06/22/21 Subjective Agree with HPI a as mentioned above Review of Systems 10-point ROS is otherwise unremarkable Physical Examination - Vital Signs Reviewed - Physical Exam General: Alert, In no apparent distress, Confused HEENT: Atraumatic, PERRLA, EOMI Neck: Supple, JVD not distended Respiratory: Diminished, Expiratory wheezes Cardiovascular: Regular rate/rhythm, Normal S1 S2, No murmurs Gastrointestinal: Normal bowel sounds, Soft and benign, Non-distended, No tenderness Musculoskeletal: No tenderness Integumentary: No rashes Neurological: Normal speech, Normal tone, Normal affect Lymphatics: No axilla or inguinal lymphadenopathy Assessment & Plan - Problems (Diagnosis) (1) COPD with acute exacerbation Onset Date: 08/11/16 Current Visit: No Status: Acute (2) Narcolepsy Current Visit: Yes Status: Acute (3) Drug psychosis with hallucinations Current Visit: Yes Status: Acute (4) HTN (hypertension) Onset Date: 11/03/17 Current Visit: No Status: Chronic Qualifiers: Hypertension type: essential hypertension Qualified Code(s): I10 - Essential (primary) hypertension (5) TEJ (obstructive sleep apnea) Current Visit: No Status: Chronic - Plan Plan: Continue with plan of care as mentioned below: 1. Continue with albuterol and Atrovent nebs 2. Continue with IV steroids-change to oral steroids 3. CT of the brain negative 4. Pulmonary consultation 5. Keep O2 to keep sats greater than 80% 6. Repeat chest x-ray in the morning 7. GI and DVT prophylaxis Discharge Plan: Home Plan to discharge in: Greater than 2 days - Advance Directives Does patient have a Living Will: No Does patient have a Durable POA for Healthcare: No - Code Status/Comfort Care Code Status Assessed: Yes Code Status: Full Code Critical Care: No Time Spent Managing PTS Care (In Minutes): 45 <Chandana Ambriz - Last Filed: 06/26/21 03:39>
[2021-06-22] MEDS ORDERED: ONDANSETRON 4 MG/2 ML VIAL IV PRN (22:44)
[2021-06-22] MEDS ORDERED: CETIRIZINE HCL 5 MG TABLET PO PRN (22:44)
[2021-06-22] MEDS: IPRATROPIUM BROM 0.5MG/2.5ML NEB SCH (22:44)
[2021-06-22] MEDS ORDERED: PSEUDOEPHEDRINE 30 MG TAB PO PRN (22:44)
[2021-06-22] MEDS: INSULIN -REGULAR HUMAN 50 UNIT/0.5 ML ML SQ SCH (22:44)
[2021-06-22] MEDS ORDERED: KETOROLAC 30 MG/ML INJ IV ONE (22:51)
[2021-06-22] MEDS ORDERED: FENTANYL CITR 100 MCG/2 ML IV PRN (22:52)
[2021-06-23 00:58] LABS: Arterial Blood Carboxyhemoglob 0.7 % (0-1.5); Blood Gas Oxyhemoglobin 95.4 % (94-97)
[2021-06-23] MEDS: METHYLPREDNISOLONE 40 MG INJ IV SCH ×2 (01:24→05:40)
[2021-06-23 01:44] VITALS: BMI 28.5
[2021-06-23] MEDS: ACETAMINOPHEN 500 MG TAB PO PRN (01:49)
[2021-06-23] MEDS: IPRATROPIUM BROM 0.5MG/2.5ML NEB SCH ×4 (02:00→20:00)
[2021-06-23] MEDS: ALBUTEROL 2.5 MG/3 ML NEB SOL NEB SCH ×4 (02:00→20:00)
[2021-06-23] MEDS ORDERED: METHYLPREDNISOLONE 40 MG INJ ONE (02:20)
[2021-06-23] MEDS ORDERED: ACETAMINOPHEN 500 MG TAB ONE (02:33)
[2021-06-23 04:13] LABS: Absolute Lymphocytes (CBC) 0.5 K/uL (0.7-4.9); Basophils % 0.2 % (0-1.3); Hematocrit 44.2 % (36.0-45.0); MPV 7.5 fL (7.6-11.3)
[2021-06-23 05:06] LABS: Blood Morphology Comment NOT SEEN (NOT SEEN); Platelet Estimate ADEQ
[2021-06-23 05:33] LABS: Albumin 3.5 g/dL (3.4-5.0); Bilirubin Total 0.4 mg/dL (0.2-1.0); Phosphorus 3.8 mg/dL (2.5-4.9); Potassium 3.8 mmol/L (3.5-5.1); Protein, Total 7.7 g/dL (6.4-8.2); Thyroid Stimulating Hormone 0.514 uIU/mL (0.360-3.740)
[2021-06-23] MEDS: INSULIN -REGULAR HUMAN 50 UNIT/0.5 ML ML SQ SCH ×4 (07:30→20:15)
[2021-06-23] MEDS ORDERED: INFLUENZA VACCINE (for 6+ mo) 0.5 ML DOSE IMVAC ONE ×2 (08:00→10:28)
--- NOTE | 2021-06-23 08:40 | P.CNS ---
Date of Consult: 06/23/21 Chief Complaint: COPD exacerbation History of Present Illness: Age 61 HXof COPD on home O2 Aw SOB worse past few weekson HFNC refused BIPAP/ concerned about being infected with parasites CXRY clear with large hiatal hernia patient states she has been having problems with the parasites for the past 6 weeks very distressed Allergies zolpidem tartrate [From Ambien] Adverse Reaction (Verified 08/11/16 02:49) hallucinations Home Medications: Ascorbic Acid [Vitamin C] 1 cap PO DAILY 04/28/19 B12/Iodin/Mag/Zinc/Ellen/Sfol331 [Adrenoid Capsule] 1 cap PO DAILY 04/28/19 Dicyclomine [Bentyl*] 20 mg PO BID 04/28/19 Duloxetine [Cymbalta *] 60 mg PO DAILY 04/28/19 Linaclotide [Linzess] 1 tab PO DAILY PRN 04/28/19 [place]-3/Dha/Epa/Fish Oil [[place] 3 500 Softgel] 1 cap PO DAILY 04/28/19 Oxybutynin Chloride [Ditropan*] 1 tab PO BID 04/28/19 Vit D3/Folic Acid/B2/B6/B12 [Folgard Tablet] 1 tab PO DAILY 04/28/19 armodafiniL [Nuvigil] 1 tab PO DAILY 04/28/19 Aspirin [Aspirin EC] 1 tab PO DAILY 06/23/21 Calcium Carbonate [Calcium] 500 mg PO DAILY 06/23/21 Esomeprazole Mag Trihydrate [Nexium] 1 cap PO DAILY 06/23/21 Spironolactone 1 tab PO DAILY 06/23/21 Zinc 50 mg PO DAILY 06/23/21 - Past Medical/Surgical History Diabetic: No -: COPD on home oxygen -: GERD with hiatal hernia -: HTN -: Chronic neck/back pain -: Former tobacco use -: Bladder hyperactivity -: Depression -: Narcolepsy -: Obstructive sleep apnea on CPAP -: Bladder scope -: Tubal ligation -: Carpal tunnel surgery -: cervical surgery -: Lumbar surgery -: Cholecystectomy Psychosocial/ Personal History: Patient is - Family History Father Medical History: Cancer, Other (see notes) Mother Medical History: Cancer Notes: Crohns Brother Medical History: Hypertension, Cancer, Kidney disease Sister Medical History: Cancer, Kidney disease Notes: Colon cancer` - Social History Smoking Status: Former smoker Alcohol use: No CD- Drugs: No Caffeine use: Yes Place of Residence: Home Review of Systems General: Weakness Respiratory: Cough, Shortness of Breath Physical Examination Temp Pulse Resp BP Pulse Ox 70 20 153/71 H 100 06/23/21 04:00 06/23/21 04:00 06/23/21 04:00 06/23/21 04:00 General: Alert, Moderate distress Respiratory: Expiratory wheezes Cardiovascular: No edema, Normal S1 S2 Gastrointestinal: Normal bowel sounds, Soft and benign Laboratory Data (last 24 hrs) 06/22/21 17:30: PT 11.7, INR 1.02 06/22/21 17:30: WBC 12.30 H, Hgb 14.3, Hct 44.0, Plt Count 332 06/22/21 17:30: Sodium 141, Potassium 3.0 L, BUN 12, Creatinine 0.65, Glucose 120 H, Magnesium 1.9, Total Bilirubin 0.4, AST 19, ALT 26, Alkaline Phosphatase 92 - Problems (1) COPD with acute exacerbation Onset Date: 08/11/16 Current Visit: No Status: Acute Plan: Patient is 61 years of age admitted with worsening cough congestion exacerbation of COPD continue with bronchodilators and steroid labs reviewed CT scan of the chest is negative no evidence of pulmonary embolism MRI of the head is also negative appears to be hallucinating blood pressure not controlled add a mlodipine increase Risperdal to twice a day titrate sat to 90%
[2021-06-23] MEDS: predniSONE 20 MG TAB PO SCH ×2 (08:47→20:15)
[2021-06-23] MEDS: levoFLOXacin 500 MG TAB PO SCH (08:47)
[2021-06-23] MEDS: ENOXAPARIN 40 MG/0.4 ML SQ SCH (08:48)
[2021-06-23] MEDS ORDERED: ALBUTEROL 2.5 MG/3 ML NEB SOL ONE (09:00)
[2021-06-23] MEDS ORDERED: IPRATROPIUM BROM 0.5MG/2.5ML ONE (09:00)
[2021-06-23] MEDS ORDERED: POTASSIUM CL SA 10 MEQ TAB PO ONE ×2 (09:00→09:37)
[2021-06-23] MEDS ORDERED: ENOXAPARIN 40 MG/0.4 ML SQ ONE (09:38)
[2021-06-23] MEDS ORDERED: predniSONE 20 MG TAB ONE (09:43)
[2021-06-23] MEDS ORDERED: levoFLOXacin 500 MG TAB ONE (09:44)
--- NOTE | 2021-06-23 10:57 | RAD REPORT ---
EXAM DESCRIPTION: CT - Head Brain Wo Cont - 06/23/2021 2:52 am CLINICAL HISTORY: AMS. TECHNIQUE: Axial, coronal, and sagittal images through the brain were performed in the absence of in travenous contrast. This exam was performed according to our departmental dose-optimization program w hich includes use of Automated Exposure Control, adjustment of the mA and/or kV according to patient size and/or use of iterative reconstruction technique. COMPARISON: None. FINDINGS: The brain parenchyma appears unremarkable. There is no intra-axial or extra-axial bleed se en. There is no mass or mass effect. The ventricles are unremarkable. The orbital contents appear unr emarkable. Tiny air-fluid levels in the maxillary sinuses. Small air-fluid level in the left sphenoid sinus. The remaining visualized paranasal sinuses and mastoid air cells are patent. No acute fracture is identi fied. IMPRESSION: 1. No acute intracranial abnormality identified. 2. Small air-fluid levels in the left sphenoid sinus and maxillary sinuses. Correlate for acute sin usitis. Electronically signed by: Bekah Ambrosio MD 06/23/2021 12:34 AM CDT Due to temporary technical issues with the PACS/Fluency reporting system, reports are being signed by the in house radiologist without review as a courtesy to ensure prompt reporting. The interpreting r adiologist is fully responsible for the content of the report.
--- NOTE | 2021-06-23 11:12 | RAD REPORT ---
EXAM DESCRIPTION: CT - Chest For Pe Angio - 06/23/2021 2:51 am CLINICAL HISTORY: SOB. COMPARISON: Mild streak artifact obscures distal branches of. TECHNIQUE: CTA of the chest was performed following intravenous administration of iodinated contrast . Axial soft tissue and lung window, and coronal and sagittal soft tissue window reconstructions were created and sent to PACS. 3D postprocessing was performed on an independent workstation, with images sent to PACS for subsequen t review. This exam was performed according to our departmental dose-optimization program, which includes autom ated exposure control, adjustment of the mA and/or kV according to patient size and/or use of iterati ve reconstruction technique. FINDINGS: Vascular: The pulmonary arteries are well-opacified to the segmental level. Streak artifac t obscures evaluation of distal branches of the right upper and lower lobe pulmonary arteries, likely due to motion degradation. No CT evidence of acute pulmonary thromboembolism. No evidence of aortic aneurysm or dissection. Lungs and pleura: Moderate motion degradation. No pulmonary consolidation. No pleural effusion. No pn eumothorax. Mediastinum and neck: Mild right hilar lymphadenopathy. Unremarkable appearance of the thyroid gland. Cardiac: No cardiomegaly or pericardial effusion. Abdomen: Tiny left adrenal benign adenoma measures 1 cm. Musculoskeletal: No concerning osseous abnormality. IMPRESSION: 1. No CTA evidence of acute pulmonary thromboembolism, with the limitation of motion d egradation. 2. Mild right hilar lymphadenopathy, nonspecific. No pulmonary consolidation or pleural effusions. Electronically signed by: Bekah Ambrosio MD 06/23/2021 12:33 AM CDT Due to temporary technical issues with the PACS/Fluency reporting system, reports are being signed by the in house radiologist without review as a courtesy to ensure prompt reporting. The interpreting r adiologist is fully responsible for the content of the report.
[2021-06-23] MEDS ORDERED: CETIRIZINE HCL 5 MG TABLET ONE (11:26)
--- NOTE | 2021-06-23 11:47 | EKG ---
Test Date: 2021-06-22 Test Time: 17:41:02 Non Profit Director: SAVANNAH MEASUREMENT RESULTS: Intervals: Rate: 123 OR: 118 QRSD: 70 QT: 316 QTc: 452 Engelhard: P: 79 OR: 118 QRS: 39 T: 84 INTERPRETIVE STATEMENTS: Sinus tachycardia with premature supraventricular complexes Biatrial enlargement Possible Anterior infarct, age undetermined Abnormal ECG Compared to ECG 06/08/2021 10:18:33 Atrial premature complex(es) now present Atrial abnormality now present Sinus rhythm no longer present Myocardial infarct finding still present Electronically Signed On 06-23-21 11:46:08 CDT by Gabo Carrillo
--- NOTE | 2021-06-23 17:12 | P.PN ---
Subjective Date of Service: 06/23/21 Patient still some shortness of breath. Respiratory status is somewhat better. Concern for some bugs that she has been exposed to them. Transfer to general medical floor. Review of Systems 10-point ROS is otherwise unremarkable Physical Examination - Vital Signs Temperature: 96.4 F Blood Pressure: 183/82 Pulse: 121 Respirations: 25 Pulse Ox (%): 97 - Physical Exam General: Alert, In no apparent distress, Confused HEENT: Atraumatic, PERRLA, EOMI Neck: Supple, JVD not distended Respiratory: Diminished, Expiratory wheezes Cardiovascular: Regular rate/rhythm, Normal S1 S2, No murmurs Gastrointestinal: Normal bowel sounds, Soft and benign, Non-distended, No tenderness Musculoskeletal: No tenderness Integumentary: No rashes Neurological: Normal speech, Normal tone, Normal affect Lymphatics: No axilla or inguinal lymphadenopathy - Studies Laboratory Data (last 24 hrs) 06/22/21 17:30: PT 11.7, INR 1.02 06/22/21 17:30: WBC 12.30 H, Hgb 14.3, Hct 44.0, Plt Count 332 06/22/21 17:30: Sodium 141, Potassium 3.0 L, BUN 12, Creatinine 0.65, Glucose 120 H, Magnesium 1.9, Total Bilirubin 0.4, AST 19, ALT 26, Alkaline Phosphatase 92 Microbiology Data (last 24 hrs): 06/22/21 18:28 Nasopharnyx Influenza Type A Antigen Screen - Final 06/22/21 18:28 Nasopharnyx Influenza Type B Antigen Screen - Final Medications List Reviewed: Yes Assessment & Plan - Problems (Diagnosis) (1) COPD with acute exacerbation Onset Date: 08/11/16 Current Visit: No Status: Acute (2) Narcolepsy Current Visit: Yes Status: Acute (3) Drug psychosis with hallucinations Current Visit: Yes Status: Acute (4) HTN (hypertension) Onset Date: 11/03/17 Current Visit: No Status: Chronic Qualifiers: Hypertension type: essential hypertension Qualified Code(s): I10 - Essential (primary) hypertension (5) TEJ (obstructive sleep apnea) Current Visit: No Status: Chronic - Plan Plan: Continue with plan of care as mentioned below: 1. Continue with albuterol and Atrovent nebs 2. Continue with IV steroids-change to oral steroids 3. CT of the brain negative 4. Pulmonary consultation 5. Keep O2 to keep sats greater than 80% 6. Repeat chest x-ray in the morning 7. GI and DVT prophylaxis Discharge Plan: Home Plan to discharge in: Greater than 2 days - Advance Directives Does patient have a Living Will: No Does patient have a Durable POA for Healthcare: No - Code Status/Comfort Care Code Status Assessed: Yes Code Status: Full Code Critical Care: No Time Spent Managing PTS Care (In Minutes): 45
[2021-06-23] MEDS ORDERED: Levofloxacin 750mg IV 750 MG/150 ML BAG IV SCH (23:15)
[2021-06-24] MEDS ORDERED: METOPROLOL TARTRATE 5 MG/5 ML INJ IV STA ×2 (00:07→14:15)
[2021-06-24] MEDS ORDERED: LEVALBUTEROL 1.25 MG/3 ML NEB NEB SCH (02:00)
[2021-06-24] MEDS: IPRATROPIUM BROM 0.5MG/2.5ML NEB SCH (02:00)
[2021-06-24] MEDS ORDERED: LEVALBUTEROL 1.25 MG/3 ML NEB NEB PRN (02:15)
[2021-06-24] MEDS ORDERED: IPRATROPIUM BROM 0.5MG/2.5ML NEB PRN (02:15)
[2021-06-24 05:41] LABS: ALT/SGPT 27 U/L (12-78); AST/SGOT 16 U/L (15-37); Albumin 3.4 g/dL (3.4-5.0); Alkaline Phosphatase 83 U/L (45-117); BUN Blood Urea Nitrogen 17 mg/dL (7-18); Bicarbonate 34 mmol/L (21-32); Bilirubin Total 0.2 mg/dL (0.2-1.0); Glucose Level 157 mg/dL (74-106); Magnesium 2.2 mg/dL (1.8-2.4); Phosphorus 3.5 mg/dL (2.5-4.9); Potassium 3.4 mmol/L (3.5-5.1); Protein, Total 7.5 g/dL (6.4-8.2); Sodium Level 144 mmol/L (136-145)
[2021-06-24] MEDS ORDERED: POTASSIUM CL SA 10 MEQ TAB PO ONE (05:50)
[2021-06-24] MEDS ORDERED: VANCOMYCIN 1.25 GM in NA CHLORIDE 0.9% 250 ML IVPB ONE (07:00)
[2021-06-24] MEDS: INSULIN -REGULAR HUMAN 50 UNIT/0.5 ML ML SQ SCH ×4 (07:30→20:29)
[2021-06-24] MEDS: ENOXAPARIN 40 MG/0.4 ML SQ SCH (09:00)
[2021-06-24] MEDS: predniSONE 20 MG TAB PO SCH ×2 (09:00→20:28)
[2021-06-24] MEDS ORDERED: VANCOMYCIN/NS 1 gm 1 GM/250 ML BAG IVPB ONE (09:00)
[2021-06-24] MEDS: levoFLOXacin 500 MG TAB PO SCH (09:00)
--- NOTE | 2021-06-24 13:12 | EKG ---
Test Date: 2021-06-24 Test Time: 00:26:33 Frame Polisher: AF MEASUREMENT RESULTS: Intervals: Rate: 117 MS: 128 QRSD: 68 QT: 304 QTc: 424 Hancock: P: 70 MS: 128 QRS: 14 T: 72 INTERPRETIVE STATEMENTS: Sinus tachycardia with premature supraventricular complexes Biatrial enlargement Abnormal ECG Compared to ECG 06/22/2021 17:41:02 Myocardial infarct finding no longer present Electronically Signed On 06-24-21 13:10:22 CDT by Gabo Carrillo
[2021-06-24] MEDS: clonazePAM 0.5 MG TAB PO SCH ×2 (15:42→20:28)
[2021-06-24] MEDS: METOPROLOL TAR 25 MG TAB PO SCH (17:20)
[2021-06-24] MEDS: HYDRALAZINE HCL 20 MG/ML VIAL IV PRN (20:28)
[2021-06-24 20:53] LABS: Urine Appearance CLEAR (Clear); Urine Bilirubin NEGATIVE (Negative); Urine Blood NEGATIVE (Negative); Urine Color YELLOW (Yellow); Urine Glucose NEGATIVE (Negative); Urine Protein NEGATIVE (Negative); Urine Urobilinogen 0.2 mg/dL (0.2-1.0)
[2021-06-24 21:15] LABS: Urine Microscopic Reflex NO UMIC
[2021-06-24 21:48] LABS: Barbiturates NEGATIVE (NEGATIVE); Benzodiazepines NEGATIVE (NEGATIVE); Cocaine NEGATIVE (NEGATIVE); METHAMPHETAM POSITIVE (NEGATIVE); Methadone NEGATIVE (NEGATIVE); Opiates NEGATIVE (NEGATIVE); Phencyclidine NEGATIVE (NEGATIVE); THC Cannibis NEGATIVE (NEGATIVE)
[2021-06-25] MEDS: METOPROLOL TAR 25 MG TAB PO SCH ×2 (05:16→17:11)
[2021-06-25] MEDS: INSULIN -REGULAR HUMAN 50 UNIT/0.5 ML ML SQ SCH ×4 (07:30→21:00)
[2021-06-25] MEDS: ENOXAPARIN 40 MG/0.4 ML SQ SCH (09:40)
[2021-06-25] MEDS: predniSONE 20 MG TAB PO SCH ×2 (09:40→21:30)
[2021-06-25] MEDS: clonazePAM 0.5 MG TAB PO SCH ×3 (09:40→21:29)
[2021-06-25] MEDS: levoFLOXacin 500 MG TAB PO SCH (09:40)
[2021-06-25 12:30] LABS: Arterial Blood Carboxyhemoglob 0.9 % (0-1.5); Blood Gas Oxyhemoglobin 91.9 % (94-97); Blood O2 Saturation 93.7 % (92-98.5)
[2021-06-25] MEDS: ACETAMINOPHEN 500 MG TAB PO PRN (13:55)
[2021-06-25] MEDS: HYDRALAZINE HCL 20 MG/ML VIAL IV PRN (14:18)
[2021-06-25] MEDS ORDERED: HOME MED 1 EA UNK (Linaclotide [Linzess] 290 MCG Capsule) PO PRN (16:30)
[2021-06-25] MEDS ORDERED: RISPERIDONE 0.25 MG TABLET PO ONE (17:00)
[2021-06-25] MEDS ORDERED: RISPERIDONE 0.25 MG TABLET PO SCH (21:00)
[2021-06-25] MEDS: DICYCLOMINE HCL 10 MG CAP PO SCH (21:30)
[2021-06-25] MEDS: OXYBUTYNIN CHLORIDE 5 MG TAB PO SCH (21:30)
--- NOTE | 2021-06-26 03:33 | P.PN ---
Date of Service: 06/24/21 Subjective Had a long talk with patient's daughter. She has been having these hallucinations about the bedbugs. They personally have not seen any. Will go ahead and start her on some antipsychotics. Her will be here in the morning and we will discuss the case with him as well. At this time he is working in unable to get a hold of him. Review of Systems 10-point ROS is otherwise unremarkable Physical Examination - Vital Signs Reviewed - Physical Exam General: Alert, In no apparent distress, Oriented x3 Respiratory: Diminished, Expiratory wheezes Cardiovascular: Regular rate/rhythm, Normal S1 S2, No murmurs Gastrointestinal: Normal bowel sounds, Soft and benign, Non-distended, No tenderness Neurological: Normal speech, Normal tone, Normal affect Assessment & Plan - Problems (Diagnosis) (1) COPD with acute exacerbation Onset Date: 06/22/21 Current Visit: No Status: Acute (2) Acute psychosis Onset Date: 06/22/21 Current Visit: No Status: Acute (3) Polysubstance abuse Onset Date: 06/22/21 Current Visit: No Status: Acute - Plan Continue with plan of care as mentioned below: 1. Continue with albuterol and Atrovent nebs 2. Change to oral steroids 3. MRI of the brain if CT is unremarkable 4. Pulmonary consultation pending 5. Keep O2 to keep sats greater than 80% 6. Repeat chest x-ray in the morning 7. Antipsychotics 8. GI and DVT prophylaxis
--- NOTE | 2021-06-26 03:37 | P.PN ---
Date of Service: 06/25/21 Subjective Spoke to patient's . She has been having these hallucinations of parasites for about a month. They have not stopped and she is been persistent in gets worked up for them. She starts getting some respiratory distress. Will start her on antipsychotics. Review of Systems 10-point ROS is otherwise unremarkable Physical Examination - Vital Signs Reviewed - Physical Exam General: Alert, In no apparent distress, Oriented x3 Respiratory: Diminished, Expiratory wheezes Cardiovascular: Regular rate/rhythm, Normal S1 S2, No murmurs Gastrointestinal: Normal bowel sounds, Soft and benign, Non-distended, No tenderness Neurological: Normal speech, Normal tone, Normal affect Assessment & Plan - Problems (Diagnosis) (1) COPD with acute exacerbation Onset Date: 06/22/21 Current Visit: No Status: Acute (2) Acute psychosis Onset Date: 06/22/21 Current Visit: No Status: Acute (3) Polysubstance abuse Onset Date: 06/22/21 Current Visit: No Status: Acute - Plan Continue with plan of care as mentioned below: 1. Continue with albuterol and Atrovent nebs 2. Continue with oral steroids 3. MRI of the brain if CT is unremarkable 4. Pulmonary consultation pending 5. Keep O2 to keep sats greater than 80% 6. Repeat chest x-ray in the morning 7. Antipsychotics 8. Hold Nuvigil 9. GI and DVT prophylaxis
[2021-06-26] MEDS: METOPROLOL TAR 25 MG TAB PO SCH ×2 (05:57→18:00)
[2021-06-26] MEDS: INSULIN -REGULAR HUMAN 50 UNIT/0.5 ML ML SQ SCH ×4 (07:30→21:00)
[2021-06-26] MEDS: PANTOPRAZOLE 40MG TABLET PO SCH (08:30)
[2021-06-26] MEDS: ENOXAPARIN 40 MG/0.4 ML SQ SCH (08:45)
[2021-06-26] MEDS: DICYCLOMINE HCL 10 MG CAP PO SCH ×2 (08:45→21:11)
[2021-06-26] MEDS: clonazePAM 0.5 MG TAB PO SCH ×3 (08:46→21:12)
[2021-06-26] MEDS: ASPIRIN EC 81 MG TAB PO SCH (08:46)
[2021-06-26] MEDS: predniSONE 20 MG TAB PO SCH ×2 (08:46→21:11)
[2021-06-26] MEDS: OXYBUTYNIN CHLORIDE 5 MG TAB PO SCH ×2 (08:46→21:00)
[2021-06-26] MEDS: DOCOSAHEXANOIC AC/EPA 1000 MG PO SCH (08:46)
[2021-06-26] MEDS: DULOXETINE 30 MG CAP PO SCH (08:46)
[2021-06-26] MEDS: SPIRONOLACTONE 25 MG TABLET PO SCH (08:46)
[2021-06-26] MEDS: levoFLOXacin 500 MG TAB PO SCH (08:48)
[2021-06-26] MEDS: ASCORBIC ACID 500 MG TABLET PO SCH (08:49)
[2021-06-26] MEDS: CALCIUM CARBONATE 500 MG TAB PO SCH (08:49)
[2021-06-26] MEDS: ZINC SULFATE 220 MG CAP PO SCH (08:49)
[2021-06-26] MEDS ORDERED: HOME MED 1 EA UNK (Ascorbic Acid [Vitamin C] 500 MG Capsule) PO SCH (09:00)
[2021-06-26] MEDS ORDERED: B12 PO SCH (09:00)
[2021-06-26] MEDS: MAG PO SCH (09:00)
[2021-06-26] MEDS: IODIN PO SCH (09:00)
[2021-06-26] MEDS ORDERED: HOME MED 1 EA UNK (Esomeprazole Mag Trihydrate [Nexium] 40 MG Capsule.Dr) PO SCH (09:00)
[2021-06-26] MEDS: [UNRECOGNIZED DRUG - OTHER] PO SCH (09:00)
[2021-06-26] MEDS: ZINC PO SCH (09:00)
[2021-06-26] MEDS ORDERED: EPA PO SCH (09:00)
[2021-06-26] MEDS ORDERED: DHA PO SCH (09:00)
[2021-06-26] MEDS ORDERED: B2 PO SCH (09:00)
[2021-06-26] MEDS ORDERED: OMEGA PO SCH (09:00)
[2021-06-26] MEDS ORDERED: VIT D3 PO SCH (09:00)
[2021-06-26] MEDS ORDERED: FOLIC ACID PO SCH (09:00)
[2021-06-26] MEDS: B12 PO SCH (09:00)
[2021-06-26] MEDS ORDERED: FISH OIL PO SCH (09:00)
[2021-06-26] MEDS ORDERED: HOME MED 1 EA UNK (Zinc [Zinc] 50 MG Tablet) PO SCH (09:00)
[2021-06-26] MEDS ORDERED: B6 PO SCH (09:00)
[2021-06-26] MEDS: FOLBIC 1 TAB PO SCH (09:04)
[2021-06-26] MEDS: HYDRALAZINE HCL 20 MG/ML VIAL IV PRN (09:06)
--- NOTE | 2021-06-26 09:23 | RAD REPORT ---
EXAM DESCRIPTION: MRI - Brain Wo Cont - 06/26/2021 7:46 am CLINICAL HISTORY: AMS Headache, drowsiness COMPARISON: Head Brain Wo Cont dated 06/22/2021 TECHNIQUE: Multi-sequence, multiplanar MR imaging of the brain was performed without contrast. FINDINGS: No intracranial hemorrhage, hydrocephalus or extra-axial fluid collections.Mild periventri cular and deep white matter chronic microvascular ischemic changes. No edema or shift of midline stru ctures. No findings to suspect brain mass. DWI is negative for acute CVA. Midline structures are normally formed. Mastoid air cells and paranasal sinuses are clear. IMPRESSION: Negative for acute CVA or other acute intracranial process.
--- NOTE | 2021-06-26 09:40 | P.PN ---
Subjective Date of Service: 06/26/21 Chief Complaint: COPD exacerbation No change patient still complaining of shortness of breath chest congestion very distressed by the parasites although none have been visible so far Review of Systems Respiratory: Cough, Shortness of Breath Physical Examination - Vital Signs Temperature: 96 F Blood Pressure: 194/93 Pulse: 84 Respirations: 22 Pulse Ox (%): 98 - Physical Exam General: Alert, Oriented x3, Moderate distress Respiratory: Expiratory wheezes Cardiovascular: Regular rate/rhythm - Studies Microbiology Data (last 24 hrs): 06/22/21 17:30 Blood - Blood Gram Stain - Final Medications List Reviewed: Yes Assessment & Plan - Problems (Diagnosis) (1) COPD with acute exacerbation Onset Date: 08/11/16 Current Visit: No Status: Acute Plan: No change in patient's condition she is still continues to be visibly distressed of the parasites although none have been visible so far she does have slight acrocyanosis continue with the present therapy blood pressure needs to be controlled have added amlodipine
[2021-06-26] MEDS ORDERED: HALOPERIDOL LACT 5 MG/ML INJ IV PRN (09:42)
[2021-06-26] MEDS ORDERED: LORazepam 2 MG/ML VIAL ONE (10:01)
[2021-06-26 10:31] LABS: Absolute Lymphocytes (CBC) 2.7 K/uL (0.7-4.9); Basophils % 0.2 % (0-1.3); Hematocrit 50.5 % (36.0-45.0); Lymphocytes % 19.2 % (15.3-44.8); MPV 7.8 fL (7.6-11.3); RBC Red Blood Cell Count 5.28 M/uL (3.86-4.86)
[2021-06-26 10:33] LABS: Arterial Blood Carboxyhemoglob 0.7 % (0-1.5); Blood Gas Oxyhemoglobin 97.3 % (94-97); Blood O2 Saturation 99.3 % (92-98.5)
[2021-06-26 10:47] LABS: ALT/SGPT 41 U/L (12-78); AST/SGOT 27 U/L (15-37); Albumin 3.8 g/dL (3.4-5.0); Alkaline Phosphatase 103 U/L (45-117); BUN Blood Urea Nitrogen 18 mg/dL (7-18); Bicarbonate 30 mmol/L (21-32); Bilirubin Total 0.4 mg/dL (0.2-1.0); Glucose Level 219 mg/dL (74-106); NT PRO-BNP 496 pg/mL (<125); Phosphorus 3.9 mg/dL (2.5-4.9); Protein, Total 8.2 g/dL (6.4-8.2); Sodium Level 141 mmol/L (136-145); Troponin I < 0.02 ng/mL (0.0-0.045)
[2021-06-26 10:48] LABS: Magnesium 2.3 mg/dL (1.8-2.4)
--- NOTE | 2021-06-26 10:58 | RAD REPORT ---
EXAM DESCRIPTION: RAD - Chest Single View - 06/26/2021 10:00 am CLINICAL HISTORY: SOB Chest pain. COMPARISON: Chest Single View dated 06/22/2021; Chest Single View dated 06/08/2021; Chest Pa And Lat (2 Views) dated 11/18/2020; Chest Single View dated 04/28/2019 FINDINGS: Portable technique limits examination quality. Elevation left hemidiaphragm is noted, stable since comparative studies. The lungs are grossly clear acute infiltrate. The heart is normal in size. No displaced fractures.Tortuous thoracic aorta.
[2021-06-26] MEDS: AMLODIPINE 5 MG TAB PO SCH (11:30)
[2021-06-26] MEDS: THIAMINE HCL 100 MG TABLET PO SCH ×2 (11:30→21:13)
[2021-06-26] MEDS: RISPERIDONE 0.25 MG TABLET PO SCH ×2 (12:01→21:13)
[2021-06-26] MEDS: IPRATROPIUM BROM 0.5MG/2.5ML IH SCH ×2 (13:32→20:25)
--- NOTE | 2021-06-26 18:02 | P.PN ---
Date of Service: 06/26/21 Subjective Rapid response was called on the patient. Patient was treated with nebs and steroids. Also place patient on BiPAP. Patient is still feeling parasites on her. However, no evidence of any parasites. Multiple imaging studies as well. Continue with anxiolytics. Patient will probably need placement. I have started her on antipsychotics and if her mentation is not improving she may benefit from [facility] psych transfer. Review of Systems 10-point ROS is otherwise unremarkable Physical Examination - Vital Signs Reviewed - Physical Exam General: Alert, In no apparent distress, Oriented x3 Respiratory: Diminished, Expiratory wheezes Cardiovascular: Regular rate/rhythm, Normal S1 S2, No murmurs Gastrointestinal: Normal bowel sounds, Soft and benign, Non-distended, No tenderness Neurological: Normal speech, Normal tone, Normal affect Assessment & Plan - Problems (Diagnosis) (1) COPD with acute exacerbation Onset Date: 06/22/21 Current Visit: No Status: Acute (2) Acute psychosis Onset Date: 06/22/21 Current Visit: No Status: Acute (3) Polysubstance abuse Onset Date: 06/22/21 Current Visit: No Status: Acute - Plan Continue with plan of care as mentioned below: 1. Continue with albuterol and Atrovent nebs 2. Continue with oral steroids 3. MRI of the brain if CT is unremarkable 4. Pulmonary consultation pending 5. Keep O2 to keep sats greater than 80% 6. Repeat chest x-ray in the morning 7. Antipsychotics 8. Hold Nuvigil 9. GI and DVT prophylaxis
[2021-06-27] MEDS: IPRATROPIUM BROM 0.5MG/2.5ML IH SCH ×4 (02:39→19:48)
[2021-06-27] MEDS: METOPROLOL TAR 25 MG TAB PO SCH ×2 (05:42→18:01)
[2021-06-27 06:07] LABS: Absolute Lymphocytes (CBC) 1.5 K/uL (0.7-4.9); Basophils % 0.3 % (0-1.3); Hematocrit 44.3 % (36.0-45.0); Lymphocytes % 12.4 % (15.3-44.8); MPV 7.7 fL (7.6-11.3); RBC Red Blood Cell Count 4.69 M/uL (3.86-4.86)
[2021-06-27 06:19] LABS: BUN Blood Urea Nitrogen 23 mg/dL (7-18); Bicarbonate 30 mmol/L (21-32); Glucose Level 163 mg/dL (74-106); Magnesium 2.3 mg/dL (1.8-2.4); Potassium 4.2 mmol/L (3.5-5.1); Sodium Level 141 mmol/L (136-145)
[2021-06-27 06:25] LABS: NT PRO-BNP 235 pg/mL (<125)
[2021-06-27] MEDS: INSULIN -REGULAR HUMAN 50 UNIT/0.5 ML ML SQ SCH ×4 (07:30→20:50)
[2021-06-27] MEDS: PANTOPRAZOLE 40MG TABLET PO SCH (08:53)
[2021-06-27] MEDS: CALCIUM CARBONATE 500 MG TAB PO SCH (08:53)
[2021-06-27] MEDS: ZINC SULFATE 220 MG CAP PO SCH (08:53)
[2021-06-27] MEDS: OXYBUTYNIN CHLORIDE 5 MG TAB PO SCH ×2 (08:53→20:49)
[2021-06-27] MEDS: RISPERIDONE 0.25 MG TABLET PO SCH ×2 (08:53→20:49)
[2021-06-27] MEDS: ASCORBIC ACID 500 MG TABLET PO SCH (08:53)
[2021-06-27] MEDS: DULOXETINE 30 MG CAP PO SCH (08:53)
[2021-06-27] MEDS: AMLODIPINE 5 MG TAB PO SCH (08:53)
[2021-06-27] MEDS: clonazePAM 0.5 MG TAB PO SCH ×3 (08:54→20:49)
[2021-06-27] MEDS: predniSONE 20 MG TAB PO SCH ×2 (08:54→20:48)
[2021-06-27] MEDS: DOCOSAHEXANOIC AC/EPA 1000 MG PO SCH (08:54)
[2021-06-27] MEDS: levoFLOXacin 500 MG TAB PO SCH (08:54)
[2021-06-27] MEDS: SPIRONOLACTONE 25 MG TABLET PO SCH (08:54)
[2021-06-27] MEDS: THIAMINE HCL 100 MG TABLET PO SCH ×2 (08:54→20:49)
[2021-06-27] MEDS: DICYCLOMINE HCL 10 MG CAP PO SCH ×2 (08:54→20:48)
[2021-06-27] MEDS: ASPIRIN EC 81 MG TAB PO SCH (08:55)
[2021-06-27] MEDS: ENOXAPARIN 40 MG/0.4 ML SQ SCH (08:56)
[2021-06-27] MEDS: B12 PO SCH (08:57)
[2021-06-27] MEDS: [UNRECOGNIZED DRUG - OTHER] PO SCH (08:57)
[2021-06-27] MEDS: ZINC PO SCH (08:57)
[2021-06-27] MEDS: MAG PO SCH (08:57)
[2021-06-27] MEDS: IODIN PO SCH (08:57)
[2021-06-27] MEDS: FOLBIC 1 TAB PO SCH (08:59)
--- NOTE | 2021-06-27 13:01 | P.PN ---
Date of Service: 06/27/21 Subjective Spoke to nurse today and patient's mentation is improved. She is very quiet today. I am not really sure if she is having the hallucinations of the parasites as much. Clinically appears to be doing a little bit better. Anxiety is better controlled as well. Review of Systems 10-point ROS is otherwise unremarkable Physical Examination - Vital Signs Reviewed - Physical Exam General: Alert, In no apparent distress, Oriented x2-3; hallucinations decreased Respiratory: Diminished, Expiratory wheezes Cardiovascular: Regular rate/rhythm, Normal S1 S2, No murmurs Gastrointestinal: Normal bowel sounds, Soft and benign, Non-distended, No tenderness Neurological: Normal speech, Normal tone, Normal affect Assessment & Plan - Problems (Diagnosis) (1) COPD with acute exacerbation Onset Date: 06/22/21 Current Visit: No Status: Acute (2) Acute psychosis Onset Date: 06/22/21 Current Visit: No Status: Acute (3) Polysubstance abuse Onset Date: 06/22/21 Current Visit: No Status: Acute - Plan Continue with plan of care as mentioned below: 1. Continue with albuterol and Atrovent nebs 2. Continue with oral steroids; tapering dose 3. MRI of the brain unremarkable as well 4. Pulmonary consultation appreciated 5. Keep O2 to keep sats greater than 80% 6. Repeat chest x-ray in the morning 7. Antipsychotics started 8. Hold Nuvigil 9. GI and DVT prophylaxis
[2021-06-28] MEDS: IPRATROPIUM BROM 0.5MG/2.5ML IH SCH ×3 (02:00→13:48)
[2021-06-28 05:55] LABS: Absolute Lymphocytes (CBC) 1.4 K/uL (0.7-4.9); Basophils % 0.3 % (0-1.3); Hematocrit 45.3 % (36.0-45.0); Lymphocytes % 12.1 % (15.3-44.8); MPV 7.9 fL (7.6-11.3); RBC Red Blood Cell Count 4.75 M/uL (3.86-4.86)
[2021-06-28 06:16] LABS: ALT/SGPT 39 U/L (12-78); AST/SGOT 16 U/L (15-37); Albumin 3.3 g/dL (3.4-5.0); Alkaline Phosphatase 75 U/L (45-117); BUN Blood Urea Nitrogen 21 mg/dL (7-18); Bicarbonate 32 mmol/L (21-32); Bilirubin Total 0.6 mg/dL (0.2-1.0); Glucose Level 140 mg/dL (74-106); Magnesium 2.3 mg/dL (1.8-2.4); NT PRO-BNP 67 pg/mL (<125); Potassium 4.2 mmol/L (3.5-5.1); Protein, Total 7.2 g/dL (6.4-8.2); Sodium Level 142 mmol/L (136-145); Thyroid Stimulating Hormone 0.772 uIU/mL (0.360-3.740)
[2021-06-28] MEDS: METOPROLOL TAR 25 MG TAB PO SCH (06:23)
[2021-06-28 07:00] LABS: Blood O2 Saturation 96.2 % (92-98.5)
[2021-06-28 07:01] LABS: Arterial Blood Carboxyhemoglob 0.7 % (0-1.5); Blood Gas Oxyhemoglobin 94.4 % (94-97)
[2021-06-28] MEDS: INSULIN -REGULAR HUMAN 50 UNIT/0.5 ML ML SQ SCH ×2 (07:30→11:30)
--- NOTE | 2021-06-28 08:50 | P.PN ---
Date of Service: 06/28/21 Subjective Patient admits to me that she still feels that she may have parasitic infection. I told her her lab data was really unremarkable. No significant eosinophilia. Stool studies have still not been collected. However, I have no evidence of any parasites. I believe this is still related to her hallucinations. Keep Risperdal twice a day. Review of Systems 10-point ROS is otherwise unremarkable Physical Examination - Vital Signs Reviewed - Physical Exam General: Alert, In no apparent distress, Oriented x2-3; hallucinations decreased Respiratory: Diminished, Expiratory wheezes Cardiovascular: Regular rate/rhythm, Normal S1 S2, No murmurs Gastrointestinal: Normal bowel sounds, Soft and benign, Non-distended, No tenderness Neurological: Normal speech, Normal tone, Normal affect Assessment & Plan - Problems (Diagnosis) (1) COPD with acute exacerbation Onset Date: 06/22/21 Current Visit: No Status: Acute (2) Acute psychosis Onset Date: 06/22/21 Current Visit: No Status: Acute (3) Polysubstance abuse Onset Date: 06/22/21 Current Visit: No Status: Acute - Plan Continue with plan of care as mentioned below: 1. Continue with albuterol and Atrovent nebs 2. Continue with oral steroids; tapering dose 3. MRI of the brain unremarkable as well 4. Pulmonary consultation appreciated 5. Keep O2 to keep sats greater than 80% 6. Repeat chest x-ray in the morning 7. Antipsychotics started 8. Hold Nuvigil 9. GI and DVT prophylaxis
[2021-06-28] MEDS: ZINC PO SCH (09:00)
[2021-06-28] MEDS: MAG PO SCH (09:00)
[2021-06-28] MEDS: IODIN PO SCH (09:00)
[2021-06-28] MEDS: B12 PO SCH (09:00)
[2021-06-28] MEDS: [UNRECOGNIZED DRUG - OTHER] PO SCH (09:00)
[2021-06-28 09:04] VITALS: O2SAT 96
[2021-06-28] MEDS: levoFLOXacin 500 MG TAB PO SCH (09:51)
[2021-06-28] MEDS: DOCOSAHEXANOIC AC/EPA 1000 MG PO SCH (09:52)
[2021-06-28] MEDS: RISPERIDONE 0.25 MG TABLET PO SCH (09:52)
[2021-06-28] MEDS: THIAMINE HCL 100 MG TABLET PO SCH (09:52)
[2021-06-28] MEDS: ASCORBIC ACID 500 MG TABLET PO SCH (09:53)
[2021-06-28] MEDS: DICYCLOMINE HCL 10 MG CAP PO SCH (09:53)
[2021-06-28] MEDS: DULOXETINE 30 MG CAP PO SCH (09:53)
[2021-06-28] MEDS: OXYBUTYNIN CHLORIDE 5 MG TAB PO SCH (09:53)
[2021-06-28] MEDS: CALCIUM CARBONATE 500 MG TAB PO SCH (09:53)
[2021-06-28] MEDS: PANTOPRAZOLE 40MG TABLET PO SCH (09:54)
[2021-06-28] MEDS: ZINC SULFATE 220 MG CAP PO SCH (09:54)
[2021-06-28] MEDS: AMLODIPINE 5 MG TAB PO SCH (09:54)
[2021-06-28] MEDS: clonazePAM 0.5 MG TAB PO SCH ×2 (09:54→13:33)
[2021-06-28] MEDS: SPIRONOLACTONE 25 MG TABLET PO SCH (09:55)
[2021-06-28] MEDS: ASPIRIN EC 81 MG TAB PO SCH (09:55)
[2021-06-28] MEDS: predniSONE 20 MG TAB PO SCH (09:55)
[2021-06-28] MEDS: ENOXAPARIN 40 MG/0.4 ML SQ SCH (09:56)
[2021-06-28] MEDS: FOLBIC 1 TAB PO SCH (09:56)
[2021-06-28 15:02] VITALS: BP 135/82; TEMP 97.4
[2021-06-30] MEDS ORDERED: predniSONE 20 MG TAB PO SCH (09:00)
--- OUTSIDE RECORDS SUMMARY | 2021-07-04 06:52 | XMS REPORT | Continuity of Care Document ---
:1960 Author Organization [facility] t Address [address] [place] [address] Care Team Providers Name Role Phone SY Primary Care Physician Unavailable SY Attending Clinician Unavailable HOLLI Attending Clinician Unavailable Nayeli MANN Attending Clinician Unavailable Mackenzie THOMPSON, S Attending Clinician Jesus THOMPSON S Attending Clinician Timur CHO Attending Clinician Unavailable Lucian CARVER Attending Clinician Unavailable AMAYA CURRY Attending Clinician Unavailable Nayeli MANN Admitting Clinician Unavailable Payers Payer Name Policy Type Policy Number Effective Date Expiration Date S parisarasta [facility] [id number] 2011 PLUS 00:00:00 [place] [id number] 2011 [facility] 00:00:00 Patients [facility] Problems Condition Condition Condition Status Onset Resolution Last Treating Co mments Source Name Details Category Date Date Treatment Clinician Date No known No known Disease Unive rs active active ity of problems problems [facility] Allergies, Adverse Reactions, Alerts Allergy Allergy Status Severity Reaction(s) Onset Inactive Treating Comm ents Source Name Type Date Date Clinician ZOLPIDEM Allergy Active Other [address] [facility] Medical [address] [place] [address] ZOLPIDEM Allergy Active Other 2016-[address] [facility] [facility] ZOLPIDEM DRUG Active Hallucinates 2016- Un tari INGREDI 4-17 ity of 00:00: [place] 00 Medical Branch Zolpidem Propensi Active Hallucinatio 2016- Univers ty to ns 4-17 ity of adverse 00:00: [place] reaction 00 Medical s Branch zolpidem DA Active SV 2015- [facility] tartrate 02-11 [place] [facility] Social History Social Habit Start Date Stop Date Quantity Comments Source Exposure to Not sure [facility] SARS-CoV-2 (event) Medica l Branch Alcohol intake 2017-06-10 2017-06-10 0 /d [facility] 00:00:00 00:00:00 [facility] Sex Ass[birth year] At [birth year] [facility] 00:00:00 00:00:00 [facility] Smoking Status Start Date Stop Date Source Former smoker 2016-07-12 00:00:00 2016-07-12 00:00:00 [facility] Medications Ordered Filled Start Stop Current Ordering Indication Dosage Frequency Signature Comments Components Source Medication Medication Date Date Medication? Clinician (SIG) Name Name ipratropium 2020-08 Yes 3mL 3 mL, Unive rs -albuteroL Inhalation ity of (DUONEB) 13:00: , QID, [place] 0.5 mg-3 00 First dose Medic al mg(2.5 mg on Tue Branch base)/3 mL 06/12/21 nebulizer at 0800, solution 3 Until mL Discontinu ed, Routine cloNIDine 2020-08- No .1mg 0.1 mg, Univ ers (CATAPRES) 06-12 Oral, ity of tablet 0.1 04:30: 04:18 ONCE, 1 [place] as mg 00 :00 dose, On Medical [place] 06/11/21 at 2330, STAT diphenhydrA 2020-08 No 25mg 25 mg, Uni vers MINE 06-12 Slow IV ity of (BENADRYL) 02:45: 02:06 Push, [place] injection 00 :00 ONCE, 1 Medical 25 mg dose, On Branch [place] 06/11/21 at 2145, STAT metoclopram 2020-08- No 10mg 10 mg, Uni vers dafne HCl 0-06-12 Slow IV ity of (REGLAN) 02:45: 02:06 Push, [place] injection 00 :00 ONCE, 1 Medical 10 mg dose, On Branch [facility] 06/11/21 at 2145, [facility] ketorolac 2020-08 No 15mg 15 mg, Unive rs (TORADOL) 006-12 Slow IV ity of injection 02:45: 02:06 Push, [place] 15 mg 00 :00 ONCE, 1 Medical dose, On Branch [facility] 06/11/21 at 2145, Routine
chemistry faculty member approving Restricted medication : ROSANA MANN methylpredn 2020-08 No 40mg 40 mg, Uni vers isolone sod 006-12 Slow IV ity of succ 02:30: 02:06 Push, ONCE [place] (SOLU-MEDRO 00 :00 NOW, 1 Medica l L) dose, On Branch injection [place] 40 mg 06/11/21 at 2130, [facility] acetaminoph 2020-08 No 650mg 650 mg, U nivers en 0-12 06- Oral, ity of (TYLENOL) 02:30: 02:05 ONCE, 1 [place] tablet 650 00 :00 dose, On Medic al mg [place] 06/11/21 at 2130, [facility] albuterol 2020-08 Yes [id number] 1.25mg Use 3 mL Univers 1.25 mg/3 0-22 as ity of mL 00:00: directed [place] nebulizer 00 every 6 Medical solution (six) Branch hours as needed for Wheezing or Shortness of Breath for up to 25 doses. predniSONE 2020-08 Yes [id number] 60mg Take 3 U nivers 20 mg 0-22 tablets by ity of tablet 00:00: mouth [place] 00 every Medical morning. Branch predniSONE 2020-08- No [id number] 60mg Take 3 Univers 20 mg 0-22 10-22 tablets by ity of tablet 00:00: 00:00 mouth [place] 00 :00 every Medical morning Branch for 5 days. maalox/diph 2018-0 Yes 10mL Take 10 mL Univers enhydrAMINE 8-23 by mouth 4 it y of :lidocaine2 00:00: (four) [place] % viscous 00 times Medical 1:1:1 Susp daily as Branc h suspension needed for Oral mucositis. Rinse and Spit before meals and bedtime. ondansetron 2018-0 Yes 4mg Take 1 Univ ers (ZOFRAN 8-23 tablet by ity of ODT) 4 mg 00:00: mouth [place] disintegrat 00 every 8 Medic al ing tablet (eight) Branch hours as needed for Nausea and Vomiting (N/V). maalox/diph 2018-0 Yes 10mL Take 10 mL Univers enhydrAMINE 8-23 by mouth 4 it y of :lidocaine2 00:00: (four) [place] % viscous 00 times Medical 1:1:1 Susp daily as Branc h suspension needed for Oral mucositis. Rinse and Spit before meals and bedtime. ondansetron 2018-0 Yes 4mg Take 1 Univ ers (ZOFRAN 8-23 tablet by ity of ODT) 4 mg 00:00: mouth [place] disintegrat 00 every 8 Medic al ing tablet (eight) Branch hours as needed for Nausea and Vomiting (N/V). FLUTICASONE 2016-08 Yes Inhale. Uni vers /SALMETEROL 0-20 ity of (ADVAIR 17:41: [place] DISKUS 46 Medical INHALE) Branch ALBUTEROL 2016-08 Yes Inhale. Unive rs SULFATE 0-20 ity of (PROAIR HFA 17:41: [place] INHALE) 46 Medical Branch ESOMEPRAZOL 2016-08 Yes Take by Un tari E MAGNESIUM 0-20 mouth. ity of (NEXIUM 17:41: [place] ORAL) 46 Medical Branch FLUTICASONE 2016-08 Yes Inhale. Uni vers /SALMETEROL 0-20 ity of (ADVAIR 12:41: [place] DISKUS 46 Medical INHALE) Branch ALBUTEROL 2016-08 Yes Inhale. Unive rs SULFATE 0-20 ity of (PROAIR HFA 12:41: [place] INHALE) 46 Medical Branch ESOMEPRAZOL 2016-08 Yes Take by Un tari E MAGNESIUM 0-20 mouth. ity of (NEXIUM 12:41: [place] ORAL) 46 Medical Branch ranitidine 2016-08 Yes 300mg Take 1 Univ ers (ZANTAC) 0-20 tablet by ity of 300 mg 00:00: mouth at [place] tablet 00 bedtime. Medical Branch ranitidine 2017-1 Yes 300mg Take 1 Univ ers (ZANTAC) 0-20 tablet by ity of 300 mg 00:00: mouth at [place] tablet 00 bedtime. Medical Branch oxybutynin 2017-0 Yes 5mg Take 1 Unive rs chloride 5 6-28 tablet by ity of mg tablet 00:00: mouth 2 [place] 00 (two) Medical times Branch daily. oxybutynin 2017-0 Yes 5mg Take 1 Unive rs chloride 5 6-28 tablet by ity of mg tablet 00:00: mouth 2 [place] 00 (two) Medical times Branch daily. diclofenac 2017-0 Yes 75mg Take 1 Unive rs 75 mg EC 5-26 tablet by ity of tablet 00:00: mouth 2 [place] 00 (two) Medical times Branch daily with meals. diclofenac 2017-0 Yes 75mg Take 1 Unive rs 75 mg EC 5-26 tablet by ity of tablet 00:00: mouth 2 [place] 00 (two) Medical times Branch daily with meals. fluticasone Yes 1{spray Use 1 Un tari 50 4-19 } [place] in ity of mcg/actuati 00:00: each [place] on nasal 00 nostril Medical spray daily. Branch Olopatadine 0 Yes 1{spray Use 1 Un tari (PATANASE) 4-19 } [place] in ity o f 0.6 % nasal 00:00: each [place] spray 00 nostril Medical daily. Branch fluticasone 0 Yes 1{spray Use 1 Un tari 50 4-19 } [place] in ity of mcg/actuati 00:00: each [place] on nasal 00 nostril Medical spray daily. Branch Olopatadine 2017-0 Yes 1{spray Use 1 Un tari (PATANASE) 4-19 } [place] in ity o f 0.6 % nasal 00:00: each [place] spray 00 nostril Medical daily. Branch NAPROXEN 2016-0 Yes Take by Unive rs (NAPROSYN 4-17 mouth. ity of ORAL) 19:51: [place] [id number] Medical Branch NAPROXEN 2017-0 Yes Take by Unive rs (NAPROSYN 4-17 mouth. ity of ORAL) 14:51: [place] [id number] Medical Branch azelastine- 2017-0 Yes 1{spray Use 1 Un tari fluticasone 4-17 } [place] in ity of (DYMISTA) 00:00: each [place] 137-50 00 nostril Medical mcg/spray daily. Branch nasal spray azelastine- 2017-0 Yes 1{spray Use 1 Un tari fluticasone 4-17 } [place] in ity of (DYMISTA) 00:00: each [place] 137-50 00 nostril Medical mcg/spray daily. Branch nasal spray levofloxaci 2015-0 Yes 500mg Take 1 Tab Univers n 9-11 by mouth ity of (LEVAQUIN) 00:00: every 24 [place] as 500 mg 00 (twenty-fo Medical tablet ur) hours. Branch levofloxaci 2015-0 Yes 500mg Take 1 Tab Univers n 9-11 by mouth ity of (LEVAQUIN) 00:00: every 24 [place] as 500 mg 00 (twenty-fo Medical tablet ur) hours. Branch conjugated 2014-0 Yes 1g Insert 1 g U nivers estrogens 9-08 into ity of (PREMARIN) 00:00: vagina [place] 0.625 00 weekly. Medical mg/gram Branch vaginal cream Nitrofurant 2014-0 Yes 100mg Take 1 Cap Univers oin&Nit. 9-08 by mouth 2 ity o f Macrocryst 00:00: (two) [place] (MACROBID) 00 times Medical 100 mg daily. Branch capsule conjugated 2014-0 Yes .5g Insert 0.5 U nivers estrogens 9-08 g into ity of (PREMARIN) 00:00: vagina [place] 0.625 00 weekly. Medical mg/gram Branch vaginal cream conjugated 2014-0 Yes 1g Insert 1 g U nivers estrogens 9-08 into ity of (PREMARIN) 00:00: vagina [place] 0.625 00 weekly. Medical mg/gram Branch vaginal cream Nitrofurant 2014-0 Yes 100mg Take 1 Cap Univers oin&Nit. 9-08 by mouth 2 ity o f Macrocryst 00:00: (two) [place] (MACROBID) 00 times Medical 100 mg daily. Branch capsule conjugated 2014-0 Yes .5g Insert 0.5 U nivers estrogens 9-08 g into ity of (PREMARIN) 00:00: vagina [place] 0.625 00 weekly. Medical mg/gram Branch vaginal cream albuterol 2014-0 Yes Univers (PROVENTIL) 8-30 ity of 2.5 mg /3 00:00: [place] mL (0.083 00 Medical %) Branch nebulizer solution albuterol Yes Univers (PROVENTIL) 8-30 ity of 2.5 mg /3 00:00: [place] mL (0.083 00 Medical %) Branch nebulizer solution lactulose Yes Univers (CEPHULAC) 8-28 ity of 10 gram/15 00:00: [place] mL solution 00 Medical Branch lactulose Yes Univers (CEPHULAC) 8-28 ity of 10 gram/15 00:00: [place] mL solution 00 Medical Branch NUVIGIL 250 Yes Univer s mg Tab 8-27 ity of 00:00: [place] 00 Medical Branch NUVIGIL 250 Yes Univer s mg Tab 8-27 ity of 00:00: [place] 00 Medical Branch NEXIUM 40 Yes Univers mg capsule 8-22 ity of 00:00: [place] 00 Medical Branch ADVAIR HFA Yes Univers 230-21 8-22 ity of mcg/actuati 00:00: [place] on inhaler 00 Medical Branch famotidine Yes Univers (PEPCID) 40 8-22 ity of mg tablet 00:00: [place] 00 Medical Branch LINZESS 290 Yes Univer s mcg Cap 8-22 ity of 00:00: [place] 00 Medical Branch losartan Yes Univers (COZAAR) 8-22 ity of 100 mg 00:00: [place] tablet 00 Medical Branch naproxen Yes Univers (NAPROSYN) 8-22 ity of 500 mg 00:00: [place] tablet 00 Medical Branch SPIRIVA Yes Univers WITH 8-22 ity of HANDIHALER 00:00: [place] 18 mcg 00 Medical inhalation Branch NEXIUM 40 Yes Univers mg capsule 8-22 ity of 00:00: [place] 00 Medical Branch ADVAIR HFA Yes Univers 230-21 8-22 ity of mcg/actuati 00:00: [place] on inhaler 00 Medical Branch famotidine Yes Univers (PEPCID) 40 8-22 ity of mg tablet 00:00: [place] 00 Medical Branch LINZESS 290 Yes Univer s mcg Cap 8-22 ity of 00:00: [place] 00 Medical Branch losartan Yes Univers (COZAAR) 8-22 ity of 100 mg 00:00: [place] tablet 00 Medical Branch naproxen Yes Univers (NAPROSYN) 8-22 ity of 500 mg 00:00: [place] tablet 00 Medical Branch SPIRIVA Yes Univers WITH 8-22 ity of HANDIHALER 00:00: [place] 18 mcg 00 Medical inhalation Branch buprenorphi Yes Univer s ne-naloxone 8-21 ity of (SUBOXONE) 00:00: [place] 8-2 mg 00 Medical sublingual Branch tablet buprenorphi Yes Univer s ne-naloxone 8-21 ity of (SUBOXONE) 00:00: [place] 8-2 mg 00 Medical sublingual Branch tablet DULoxetine Yes Univers (CYMBALTA) 8-08 ity of 60 mg 00:00: [place] capsule 00 Medical Branch DULoxetine Yes Univers (CYMBALTA) 8-08 ity of 60 mg 00:00: [place] capsule 00 Medical Branch Duloxetine Duloxetine Yes [address] [facility] - (Cymbalta) (Cymbalta) Pat ient 30 Mg 30 Mg s Capsule. Capsule. [facility] Escitalopra Escitalopra Yes [address] m Oxalate m Oxalate [facility] - (Lexapro) (Lexapro) Patie nt 10 Mg 10 Mg s Tablet Tablet [facility] Esomeprazol Esomeprazol Yes C [facility] e Magnesium e Magnesium L ukes - (Nexium) 40 (Nexium) 40 P atient Mg Mg s Capsule. Capsule. [facility] Ketorolac Ketorolac Yes [facility]. Tromethamin Tromethamin L ukes - e (Sprix) 1 e (Sprix) 1 P atient Each [place] Each [place] s Medical Minter Quetiapine Quetiapine Yes Twice A [facility] Fumarate Fumarate Day [facility] - (Seroquel) (Seroquel) Pat ient 25 Mg 25 Mg s Tablet Tablet Medical Minter Tiotropium Tiotropium Yes [facility] - (Spiriva) (Spiriva) Patie nt 18 Mcg 18 Mcg s Cap.w.dev Cap.w.dev Medic al Center Vital Signs Vital Name Observation Time Observation Value Comments Source Systolic blood 2021-06-12 06:10:35 148 mm[Hg] Univer sity of pressure [place] [facility] Diastolic blood 2021-06-12 06:10:35 89 mm[Hg] Unive rsity of pressure [place] [facility] Heart rate 2021-06-12 06:10:35 87 /min Universi ty of [place] [facility] [place] Respiratory rate 2021-06-12 06:10:35 18 /min Univ ersity of [place] [facility] [place] Oxygen saturation in 2021-06-12 06:10:35 96 /min University of Arterial blood by [facility] Pulse oximetry Branch Body temperature 2021-06-12 00:37:00 36.94 Jennifer Univ ersity of [place] [facility] [place] Body weight 2021-06-12 00:37:00 86.183 kg Universi ty of [place] [facility] [place] BMI 2021-06-12 00:37:00 34.75 kg/m2 Universi ty of [place] [facility] [place] Systolic blood 2021 07:54:00 178 mm[Hg] Univer sity of pressure [place] [facility] Diastolic blood 2021 07:54:00 104 mm[Hg] Unive rsity of pressure [place] [facility] Heart rate 2021 07:54:00 96 /min Universi ty of [place] [facility] [place] Body temperature 2021 07:54:00 37.5 Jennifer Univ ersity [facility] [place] [facility] Respiratory rate 2021 07:54:00 16 /min Univ ersity of [place] [facility] [place] Body height 2021 07:54:00 157.5 cm Universi ty [facility] [place] [facility] [place] Body weight 2021 07:54:00 74.844 kg Universi ty of [place] [facility] BMI 2021 07:54:00 30.18 kg/m2 Universi ty of [place] [facility] Oxygen saturation in 2021 07:54:00 99 /min University of Arterial blood by [facility] Pulse oximetry Branch Procedures Procedure Date / Time Performed Performing Clinician Sour e URINALYSIS 2021-06-12 04:07:00 Memo Rivas [facility] TROPONIN I 2021-06-12 02:04:00 Memo Rivas [facility] COMP. METABOLIC PANEL 2021-06-12 02:04:00 Memo Rivas [facility] ([id number]) Medical Branch CBC WITH DIFF 2021-06-12 02:04:00 Memo Rivas [facility] N-TERMINAL PRO-BNP 2021-06-12 02:04:00 Memo Rivas [facility] COVID-19 (ID NOW RAPID 2021-06-12 02:04:00 Memo Rivas Un [facility] TESTING) Medical Branch XR CHEST 1 VW 2021-06-12 01:43:00 Memo Rivas [facility] CT HEAD WO CONTRAST 2021 08:34:42 Alicia Lee [facility] NOTICE OF PRIVACY 2021 07:51:43 Doctor Unassigned, No [facility] PRACTICES Name [facility] CONSENT/REFUSAL FOR 2021 07:49:53 Doctor Unassigned, No Un [facility] DIAGNOSIS AND Name [facility] TREATMENT X-ray of chest, two 2018-03-14 00:00:00 SEBASTIÁN CARVER [facility] Encounters Start End Encounter Admission Attending Care Care Encounter Source Date/Time Date/Time Type Type Clinicians Facility Department ID 2021-06-22 Emergency [facility] [id number] Univers 06:08:53 [facility] 2021-07-21 2021-07-21 Outpatient Amari DAN [facility] [id number] Univers 13:00:00 13:00:00 TONYA [id number] [facility] 2021-07-21 2021-07-21 Outpatient Amari DAN [facility] [id number] Univers 13:00:00 13:00:00 TONYA [facility] 2021-07-03 2021-07-03 Outpatient Amari DAN [facility] [id number] Univers 10:00:00 10:00:00 TONYA [id number] [facility] 2021-07-03 2021-07-03 Outpatient Amari DAN [facility] [id number] Univers 10:00:00 10:00:00 TONAY ity [facility] 2021-07-03 2021-07-03 Outpatient R SY, [facility] [id number] Univers 10:00:00 10:00:00 TONYA ity [facility] 2021-06-23 2021-06-23 Outpatient R HOLLI, [facility] [id number] Univers 09:00:00 09:00:00 CAS [id number] ity [facility] 2021-06-23 2021-06-23 Outpatient R JANEKELLI, [facility] [id number] Univers 09:00:00 09:00:00 CAS ity [facility] 2021-06-11 2021-06-12 Emergency X MACKENZIE, [facility] ERT [id number] Univers 19:37:00 01:11:00 ROSANA ity [facility] 2021-06-11 2021-06-12 Emergency Mackenzie, TRAUMA [id number] Univers 19:37:00 01:11:00 Rosana S CENTER [id number] it [place] [id number] [place] [id number] [address] 2021-04-17 2021-04-17 Outpatient R SY [facility] [id number] Univers 09:00:00 09:00:00 TONYA [id number] ity [facility] 2021-04-17 2021-04-17 [facility] [id number] Univers 09:00:00 09:00:00 TONYA ity [facility] 2021-04-03 2021-04-03 Outpatient R SY [facility] [id number] Univers 10:00:00 10:00:00 TONYA [id number] ity [facility] 2021-04-03 2021-04-03 [facility] [id number] Univers 10:00:00 10:00:00 TONYA ity [facility] 2021 2021 [facility] [id number] Univers 02:58:00 04:30:00 Alicia Briones [id number] ity [place] [id number] [facility] [id number] [place] [id number] Branch 2020-12-25 2020-12-25 [facility] [id number] Univers 10:00:00 10:00:00 [facility] [id number] [facility] 2020-12-25 2020-12-25 [facility] [id number] Univers 10:00:00 10:00:00 CAS [facility] 2020-11-13 2020-11-13 Outpatient MARQUIS, [facility] [id number] Univers 10:00:00 10:00:00 WONDIFUL [id number] ity o f [facility] 2020-09-12 2020-09-12 Outpatient R [facility] [id number] Univers 18:00:00 18:00:00 [id number] [facility] 2019-12-07 2019-12-07 Outpatient R [facility] [id number] Univers 09:00:00 09:00:00 [id number] [facility] 2019-12-07 2019-12-07 Outpatient R [facility] [id number] Univers 09:00:00 09:00:00 [facility] 2018-03-14 2018-03-14 Departed 1 [facility]EN [facility] [id number] [facility] St. 09:11:00 14:46:00 Emergency SEBASTIÁN 20 [place] s - Room Patient s [facility] Results Test Description Test Time Test Comments Results Result Comments Source N-TERMINAL PRO-BNP 2021-06-12 03:31:11 Test Item Value Reference Range Interpretation Comme nts NT-proBNP (test code = 434 pg/mL See_Comment H [Aut omated message] The [id number]) system which ge nerated this result tra nsmitted reference range : <=125. The reference r jamir was not used to int erpret this result as eli l/abnormal. SERINA (test code = SERINA) Biotin has been reported to cause a negative bias, interpret results relative to patient's use of biotin. Lab Interpretation (test Abnormal code = 94348-0) [id number]:04[facility]49 Test Item Value Reference Interpretation Comments Range TROPONIN I (test 0.024 ng/mL See_Comment [Automated code = [id number]) message] The system which generated this result transmitted reference range : <=0.034. The reference range was not used to interpret this result as normal/abnormal . SERINA (test code = Reference (Normal) SERINA) Range (defined by the 99th percentile reference limit): <= 0.034 ng/mL Note: Cardiac troponin begins to rise 3-4 hours after the onset of ischemia. Repeat in 4-6 hours if the sample was drawn within 3-4 hours of the onset of the symptom and found normal. Diagnosis of myocardial injury is made with acute changes in cTn concentrations with at least one serial sample above the 99th percentile upper reference limit (URL), taken together with the patient's clinical presentation. Biotin has been reported to cause a negative bias, interpret results relative to patient's use of biotin. Lab Interpretation Normal (test code = 22537-4) [facility]. METABOLIC PANEL (13641)2021-06-12 02:36:23 Test Item Value Reference Range Interpretation Comments NA (test code = 140 mmol/L 135-145 2363722860) K (test code = 3.8 mmol/L 3.5-5.0 5815930299) CL (test code = 99 mmol/L 98-108 3140392290) CO2 TOTAL (test code = 32 mmol/L 23-31 H 3735242461) AGAP (test code = 2-16 0433494456) BUN (test code = 9 mg/dL 7-23 1912658325) GLUCOSE (test code = 94 mg/dL 70-110 1663303412) CREATININE (test code = 0.57 mg/dL 0.50-1.04 9089212330) TOTAL BILI (test code = 0.3 mg/dL 0.1-1.0 9660222230) CALCIUM (test code = 9.6 mg/dL 8.6-10.6 4141536038) T PROTEIN (test code = 7.1 g/dL 6.3-8.2 3045814711) ALBUMIN (test code = 4.4 g/dL 3.5-5.0 6708759737) ALK PHOS (test code = 93 U/L 34-122 7965325172) ALTv (test code = 21 U/L 5-35 1742-6) AST(SGOT) (test code = 28 U/L 13-40 2928644543) eGFR (test code = mL/min/1.73m2 6561425069) SERINA (test code = SERINA) Association of Glomerular Filtration Rate (GFR) and Staging of Kidney Disease* + --+ --+ ------+| GFR (mL/min/1.73 m2) ?| With Kidney Damage ?| ?Without Kidney Damage+ --------+ --------+ +| ?>90 ?| ?Stage one ?| ? Normal ?+ ---+ ---+ -------+| ?60-89 ?| ?Stage two ?| ? Decreased GFR ? + --+ --+ ------+| ?30-59 ?| ?Stage three ?| ? Stage three ? + --+ --+ ------+| ?15-29 ?| ?Stage four ? | ? Stage four ?+ ---+ ---+ -------+| ?<15 (or dialysis) ? ?| ?Stage five ? | ? Stage five ?+ ---+ ---+ -------+ *Each stage assumes the associated GFR level has been in effect for at least three months. ?Stages 1 to 5, with or without kidney disease, indicate chronic kidney disease. Notes: Determination of stages one and two (with eGFR >59mL/min/1.73 m2) requires estimation of kidney damage for at least three months as defined by structural or functional abnormalities of the kidney, manifested by either:Pathological abnormalities or Markers of kidney damage (including abnormalities in the composition of the blood or urine or abnormalities in imaging tests). Lab Interpretation Abnormal (test code = 38426-2) [facility] WITH [id number] 02:22:41 Test Item Value Reference Range Interpretation Comments WBC (test code = See_Comment [Automated 6690-2) message] The sy stem which generated this result transmitted reference range : 4.30 - 11.10 10*3/?L. The reference range was not used to interpret this result as normal/abnormal . RBC (test code = See_Comment [Automated 789-8) message] The sy stem which generated this result transmitted reference range : 3.93 - 5.25 10*6/?L. The reference range was not used to interpret this result as normal/abnormal . HGB (test code = 13.3 g/dL 11.6-15.0 718-7) HCT (test code = 40.3 % 35.7-45.2 4544-3) MCV (test code = 94.8 fL 80.6-95.5 787-2) MCH (test code = 31.3 pg 25.9-32.8 785-6) MCHC (test code = 33.0 g/dL 31.6-35.1 786-4) RDW-SD (test code = 49.0 fL 39.0-49.9 06862-5) RDW-CV (test code = 14.0 % 12.0-15.5 788-0) PLT (test code = See_Comment [Automated 777-3) message] The sy stem which generated this result transmitted reference range : 166 - 358 10*3/ ?L. The reference r jamir was not used to interpret this result as normal/abnormal . MPV (test code = 9.0 fL 9.5-12.9 L 08732-9) NRBC/100 WBC (test See_Comment [Automat ed code = [id number]) message] The system which generated this result transmitted reference range : 0.0 - 10.0 /100 WBCs. The refer ence range was not u sed to interpret th is result as normal/abnormal . NRBC x10^3 (test code <0.01 See_Comment [Auto mated = [id number]) message] The s ystem which generated this result transmitted reference range : 10*3/?L. The reference range was not used to interpret this result as normal/abnormal . GRAN MAT (NEUT) % 75.5 % (test code = 770-8) IMM GRAN % (test code 0.20 % = 6315484824) LYMPH % (test code = 18.4 % 736-9) MONO % (test code = 4.8 % 5905-5) EOS % (test code = 0.9 % 713-8) BASO % (test code = 0.2 % 706-2) GRAN MAT x10^3(ANC) 7.78 10*3/uL 1.88-7.09 H (test code = 4981707861) IMM GRAN x10^3 (test <0.03 0.00-0.06 code = 0679304664) LYMPH x10^3 (test code 1.89 10*3/uL 1.32-3.29 = 731-0) MONO x10^3 (test code 0.49 10*3/uL 0.33-0.92 = 742-7) EOS x10^3 (test code = 0.09 10*3/uL 0.03-0.39 711-2) BASO x10^3 (test code <0.03 0.01-0.07 = 704-7) Lab Interpretation Abnormal (test code = 49278-4) [facility]- XR FLUOROSCOPY 0-60 [id number] 14:31:00 FAX: Dallin Thompson MD [phone] [place]: [address] St: REG FAX: Ifeanyi Mary [phone] Name: MANDEEP SAAVEDRA [facility] : 1960 Age/S: 59/F [address] Unit #: [id number] Loc: [place] [address] Phys: Dallin Brush MD Acct: [id number] Dis Date: Status: REG CLI PHONE #: [phone] Exam Date: 07/02/2019 1230 FAX #: [phone] Reason: EXAMS: CPT CODE: [id number] XR FLUOROSCOPY 0-60 MIN 56587 HISTORY: Diff iculty breathing. COMPARISON: CT chest from same day. Location: [facility]. Fluoroscopic evaluation of both diaphragms evaluated: No excursion of the markedly elevated left hemidiaphragm. Mild excursion of the right hemidiaphragm. IMPRESSION: No excretion noted of the left diaphragm. Mild excursion is noted on the right side. Fluoroscopy time utilized was 0.6 minutes and single image was obtainedduring the study at 1431 Reported and signed by: Candelario Moreno M.D. CC: Dallin Brush MD; Ifeanyi Huerta Technologist: RT AR(Amari) Trnscrd Date/Time/By: 07/02/2019 (9134) : By: [email or web address] Orig Print D/T: S: 07/02/2019 (0248) PAGE 1 Signed Report- CT CHEST W/[id number] 13:56:00 Name: MANDEEP SAAVEDRA [facility] : 1960 Age/S: 59 / F [address] [facility] Unit #: [id number] Loc: [place] [address] Phys: Dallin Brush MD Acct: [id number] Dis Date: Status: REG CLI PHONE #: [phone] Exam Date: 07/02/2019 1110 FAX #: [phone] Reason: WORSENING DYSPNEA EXAMS: CPTCODE: [id number] CT CHEST W/CONTRAST 58849 HISTORY: Worsening dyspnea. COMPARISON: CT chest from January 02, 2016 and January 13, 2010 CT chest without contrast: Automated exposure control. Location: [facility]. 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 Descending aorta is not aneurysmal. No dissection. Unremarkable pulmonary arteries (not performed as PE protocol). Well-opacified SVC and the neck vasculature. Unremarkable thyroid glands. No pathologic adenopathy. Esophagealwall is not thickened. Cardiomegaly without pericardial effusion. Visualized upper abdomen is within normal limits. Markedly elevated left hemidiaphragm. The subcutaneous tissues and the musculature are normal in appearance. No lytic or blastic lesions are noted within the bony skeleton. DJD. The lungs are clear of infiltrates, effusion or congestion. Bibasal subsegmental atelectasis. No bronchiectasis, honeycombing or fibrosis or endobronchial lesions are noted. IMPRESSION: The lungs are clear of infiltrates, effusion or congestion. No bronchiectasis, honeycombing or fibrosis or endobronchial lesions. No parenchymal mass. Markedly elevated left hemidiaphragm. No pathologic adenopathy. Borderline fusiform aneurysmal dilatation of the ascending aorta at 3.5 cm. at 1356 Reported and signed by: Candelario Moreno M.D. CC: Dallin Brush MD; Ifeanyi Huerta Technologist:Ashley Barajas,RT(R),CT; Lola CTDI: DLP: Trnscb Date/Time: 07/02/2019 (8290) t.SDR.TH4 Orig Print D/T: S: 07/02/2019 (2979) PAGE 1 Signed ReportCHEST 2 [id number] 11:27:00 [place] [address] Patient Name: MANDEEP SAAVEDRA MR #: [id number] : 1960 Age/Sex: 58/F Req #: [id number] Adm Physician: Ordered by: SEBASTIÁN CARVER MD Report #: [id number] Location: ER Room/Bed: Procedure: 3050-7280 DX/CHEST 2 VIEWS Exam Date: 03/14/18 Exam [...] palsy and fluoroscopic "sniff test" or correlation withany prior outside imaging is recommended for evaluation. Subacute left posterolateral sixth rib fracture. Dictated by: CHARO VILLAREAL M.D. on 03/14/2018 at 11:27 Electronically approved by: CHARO VILLAREAL M.D. on 03/14/2018 at 11:27 Dictated By: CHARO VILLAREAL MD 1127 Transcribed By: SINDY on 03/14/18 1127 COPY TO: SEBASTIÁN CARVER MDSodium [id number] 10:38:00 Test Item Value Reference Range Interpretation Comments Sodium Level (test code = 2951-2) 141 136-145 [facility] [id number] 10:38:00 Test Item Value Reference Range Interpretation Comments Potassium Level (test code = 2823-3) 2.9 3.5-5.1 LL Results called to at 1035 on 03/14/18 by Stephen Knig. RB OK.This test has been rerun and double checked for accuracy.[facility] HospitalChloride [id number] 10:38:00 Test Item Value Reference Range Interpretation Comments Chloride Level (test code = 2075-0) 93 98-107 L [facility] HospitalCar[facility] Dioxide [id number] 10:38:00 Test Item Value Reference Range Interpretation Comments Carbon Dioxide Level (test code = 35 22-29 H 2028-04) [facility] HospitalAnion [id number] 10:38:00 Test Item Value Reference Range Interpretation Comments Anion Gap (test code = 04371-9) 15.9 8-16 [facility] Urea Cqlhoodw9826-26-10 10:38:00 Test Item Value Reference Range Interpretation Comments Blood Urea Nitrogen (test code = 03-16 3094-0) [facility] HospitalCreatinine2018-07-24 10:38:00 Test Item Value Reference Range Interpretation Comments Creatinine (test code = 2160-0) 0.69 0.57-1.11 [facility] HospitalBUN/Creatinine Nwrnn1542-08-32 10:38:00 Test Item Value Reference Range Interpretation Comments BUN/Creatinine Ratio (test code = 02-13 3097-3) [facility] HospitalEstimat Glomerular Filtration Rate 2018-03-14 10:38:00 Test Item Value Reference Range Interpretation Comments Estimat Glomerular Filtration Rate 60- >60 (test code = 06336-8) Ranges were taken from the National Kidney Disease Education Program and the National Kidney Foundation literature.Reference ranges:60 or greater: Uutusv20- 59 (for 3 consecutive months): Chronic kidneydisease 15 or less: Kidney failure [facility]Glucose Zaacg9675-12-07 10:38:00 Test Item Value Reference Range Interpretation Comments Glucose Level (test code = HWC8829) 78 74-118 [facility] HospitalCalcium [id number] 10:38:00 Test Item Value Reference Range Interpretation Comments Calcium Level (test code = 83680-7) 9.8 8.4-10.2 [facility] HospitalWhite Blood [id number] 10:19:00 Test Item Value Reference Range Interpretation Comments White Blood Count (test code = 6690-2) 11.39 4.8-10.8 H [facility] HospitalRed Blood Moyco0229-61-06 10:19:00 Test Item Value Reference Range Interpretation Comments Red Blood Count (test code = 789-8) 3.72 3.6-5.1 [facility] HospitalHemoglobin2018-07-24 10:19:00 Test Item Value Reference Range Interpretation Comments Hemoglobin (test code = 45226-2) 11.6 12.0-16.0 L [facility] HospitalHematocrit2018-07-24 10:19:00 Test Item Value Reference Range Interpretation Comments Hematocrit (test code = 4544-3) 35.6 34.2-44.1 [facility] HospitalMean Corpuscular [id number] 10:19:00 Test Item Value Reference Range Interpretation Comments Mean Corpuscular Volume (test code = 95.7 81-99 787-2) [facility] HospitalMean Corpuscular Rsmpdklfcj6143-69-94 10:19:00 Test Item Value Reference Range Interpretation Comments Mean Corpuscular Hemoglobin (test code 31.2 28-32 = 785-6) [facility] HospitalMean Corpuscular Hemoglobin Concent 2018-03-14 10:19:00 Test Item Value Reference Range Interpretation Comments Mean Corpuscular Hemoglobin Concent 32.6 31-35 (test code = 786-4) [facility] HospitalRed Cell Distribution Ffret2415-99-05 10:19:00 Test Item Value Reference Range Interpretation Comments Red Cell Distribution Width (test code 15.0 11.7-14.4 H = 87059-2) [facility] HospitalPlatelet Oltck3375-96-59 10:19:00 Test Item Value Reference Range Interpretation Comments Platelet Count (test code = 777-3) 405 140-360 H [facility] HospitalNeutrophils (%) (Auto)2018-03-14 10:19:00 Test Item Value Reference Range Interpretation Comments Neutrophils (%) (Auto) (test code = 59.3 38.7-80.0 14045-2) [facility] HospitalLymphocytes (%) (Auto)2018-03-14 10:19:00 Test Item Value Reference Range Interpretation Comments Lymphocytes (%) (Auto) (test code = 35.5 18.0-39.1 736-9) [facility] HospitalMonocytes (%) (Auto)2018-03-14 10:19:00 Test Item Value Reference Range Interpretation Comments Monocytes (%) (Auto) (test code = 4.0 4.4-11.3 L 5905-5) [facility] HospitalEosinophils (%) (Auto)2018-03-14 10:19:00 Test Item Value Reference Range Interpretation Comments Eosinophils (%) (Auto) (test code = 0.4 0.0-6.0 713-8) [facility] HospitalBasophils (%) (Auto)2018-03-14 10:19:00 Test Item Value Reference Range Interpretation Comments Basophils (%) (Auto) (test code = 0.3 0.0-1.0 706-2) [facility] HospitalIM GRANULOCYTES %2018-03-14 10:19:00 Test Item Value Reference Range Interpretation Comments IM GRANULOCYTES % (test code = IM 0.5 0.0-1.0 GRANULOCYTES %) [facility] HospitalNeutrophils # (Auto)2018-03-14 10:19:00 Test Item Value Reference Range Interpretation Comments Neutrophils # (Auto) (test code = 6.8 2.1-6.9 751-8) [facility] HospitalLymphocytes # (Auto)2018-03-14 10:19:00 Test Item Value Reference Range Interpretation Comments Lymphocytes # (Auto) (test code = 4.0 1.0-3.2 H 39818-7) [facility] HospitalMonocytes # (Auto)2018-03-14 10:19:00 Test Item Value Reference Range Interpretation Comments Monocytes # (Auto) (test code = 742-7) 0.5 0.2-0.8 [facility] HospitalEosinophils # (Auto)2018-03-14 10:19:00 Test Item Value Reference Range Interpretation Comments Eosinophils # (Auto) (test code = 0.1 0.0-0.4 711-2) [facility] HospitalBasophils # (Auto)2018-03-14 10:19:00 Test Item Value Reference Range Interpretation Comments Basophils # (Auto) (test code = 704-7) 0.0 0.0-0.1 [facility] HospitalAbsolute Immature Granulocyte (auto 2018-03-14 10:19:00 Test Item Value Reference Range Interpretation Comments Absolute Immature Granulocyte (auto 0.06 0-0.1 (test code = Absolute Immature Granulocyte (auto) [facility] METABOLIC [id number] 14:41:00 Test Item Value Reference Range Interpretation Comments SODIUM (BEAKER) 138 meq/L 135-148 (test code = 381) POTASSIUM (BEAKER) 4.1 meq/L 3.5-5.5 (test code = 379) CHLORIDE (BEAKER) 93 meq/L 98-106 L (test code = 382) CO2 (BEAKER) (test 32 meq/L 20-31 H code = 355) BLOOD UREA NITROGEN 8 mg/dL 10-26 L (BEAKER) (test code = 354) CREATININE (BEAKER) 0.73 mg/dL 0.50-1.20 (test code = 358) GLUCOSE RANDOM 86 mg/dL 70-110 (BEAKER) (test code = 652) CALCIUM (BEAKER) 9.8 mg/dL 8.5-10.5 (test code = 697) EGFR (BEAKER) (test 82 mL/min/1.73 [facility] [place] GFR IS code = 1092) sq m NOT ACCURATE CREATININE CLEARANCE IN PREDICTING GLOMERULAR FILTRATION RATE . ESTIMATED GFR I S NOT APPLICABLE FOR DIALYSIS PATIEN TS. CBC W/PLT COUNT & AUTO [id number] 14:20:00 Test Item Value Reference Range Interpretation Comments WHITE BLOOD CELL COUNT (BEAKER) 12.3 K/ L 4.0-10.0 H (test code = 775) RED BLOOD CELL COUNT (BEAKER) 3.75 M/ L 4.00-5.00 L (test code = 761) HEMOGLOBIN (BEAKER) (test code = 12.0 GM/DL 12.0-15.0 410) HEMATOCRIT (BEAKER) (test code = 36.5 % 36.0-45.0 411) MEAN CORPUSCULAR VOLUME (BEAKER) 97.3 fL 82.0-99.0 (test code = 753) MEAN CORPUSCULAR HEMOGLOBIN 32.0 pg 27.0-33.0 (BEAKER) (test code = 751) MEAN CORPUSCULAR HEMOGLOBIN CONC 32.9 GM/DL 32.0-36.0 (BEAKER) (test code = 752) RED CELL DISTRIBUTION WIDTH 13.7 % 12.0-15.0 (BEAKER) (test code = 412) PLATELET COUNT (BEAKER) (test 322 K/CU MM 150-430 code = 756) MEAN PLATELET VOLUME (BEAKER) 7.1 fL 6.5-10.5 (test code = 754) NUCLEATED RED BLOOD CELLS 0 /100 WBC 0-0 (BEAKER) (test code = 413) NEUTROPHILS RELATIVE PERCENT 70 % (BEAKER) (test code = 429) LYMPHOCYTES RELATIVE PERCENT 23 % (BEAKER) (test code = 430) MONOCYTES RELATIVE PERCENT 5 % (BEAKER) (test code = 431) EOSINOPHILS RELATIVE PERCENT 1 % (BEAKER) (test code = 432) BASOPHILS RELATIVE PERCENT 1 % (BEAKER) (test code = 437) NEUTROPHILS ABSOLUTE COUNT 8.60 K/ L 1.80-8.00 H (BEAKER) (test code = 670) LYMPHOCYTES ABSOLUTE COUNT 2.90 K/ L 1.48-4.50 (BEAKER) (test code = 414) MONOCYTES ABSOLUTE COUNT (BEAKER) 0.60 K/ L 0.00-1.30 (test code = 415) EOSINOPHILS ABSOLUTE COUNT 0.20 K/ L 0.00-0.50 (BEAKER) (test code = 416) BASOPHILS ABSOLUTE COUNT (BEAKER) 0.10 K/ L 0.00-0.20 (test code = 417)
--- NOTE | 2021-07-12 18:19 | P.DS ---
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 Patient was found to be severely short of breath. Patient has a history of COPD. Patient also was confused and stating that she had a parasitic infection. She states she sees parasites coming out of her scan. She appears to be confused and not really making a lot of sense. This could be related to her hypoxemia. Start her on nebs and steroids and oxygen and see how patient's mentation does. Hospital Course: Patient's clinical symptoms were improving. Respiratory status was improving. However, she was still feeling like she had a parasitic infections. She decided to leave against medical advice she called her to pick her up. She left with him and she was advised to go to another hospital if her breathing continues to stay very poor. Vital Signs/Physical Exam: Temp Pulse Resp BP Pulse Ox 97.4 F 96 H 20 135/82 98 06/28/21 12:00 06/28/21 12:00 06/28/21 12:00 06/28/21 12:00 06/28/21 12:00 General: Alert, In no apparent distress, Oriented x3 Laboratory Data at Discharge: WBC 11.20 K/uL (4.3-10.9) H 06/28/21 05:33 Hgb 14.4 g/dL (12.0-15.0) 06/28/21 05:33 Hct 45.3 % (36.0-45.0) H 06/28/21 05:33 Plt Count 280 K/uL (152-406) 06/28/21 05:33 PT 11.7 SECONDS (9.5-12.5) 06/22/21 17:30 INR 1.02 06/22/21 17:30 Sodium 142 mmol/L (136-145) 06/28/21 05:33 Potassium 4.2 mmol/L (3.5-5.1) 06/28/21 05:33 BUN 21 mg/dL (7-18) H 06/28/21 05:33 Creatinine 0.65 mg/dL (0.55-1.3) 06/28/21 05:33 Glucose 140 mg/dL (74-106) H 06/28/21 05:33 Phosphorus 3.9 mg/dL (2.5-4.9) 06/26/21 10:10 Magnesium 2.3 mg/dL (1.8-2.4) 06/28/21 05:33 Total Bilirubin 0.6 mg/dL (0.2-1.0) 06/28/21 05:33 AST 16 U/L (15-37) 06/28/21 05:33 ALT 39 U/L (12-78) 06/28/21 05:33 Alkaline Phosphatase 75 U/L (45-117) 06/28/21 05:33 Troponin I < 0.02 ng/mL (0.0-0.045) 06/26/21 10:10 Triglycerides 90 mg/dL (<150) 06/23/21 03:57 Cholesterol 219 mg/dL (<200) H 06/23/21 03:57 HDL Cholesterol 84 mg/dL (40-60) H 06/23/21 03:57 Cholesterol/HDL Ratio 2.61 06/23/21 03:57 Home Medications: RX: Ascorbic Acid [Vitamin C] 1 cap PO DAILY 04/28/19 RX: B12/Iodin/Mag/Zinc/Ellen/Bqpz293 [Adrenoid Capsule] 1 cap PO DAILY 04/28/19 RX: Dicyclomine [Bentyl*] 20 mg PO BID 04/28/19 RX: Duloxetine [Cymbalta *] 60 mg PO DAILY 04/28/19 RX: Linaclotide [Linzess] 1 tab PO DAILY PRN 04/28/19 RX: [place]-3/Dha/Epa/Fish Oil [[place] 3 500 Softgel] 1 cap PO DAILY 04/28/19 RX: Oxybutynin Chloride [Ditropan*] 1 tab PO BID 04/28/19 RX: Vit D3/Folic Acid/B2/B6/B12 [Folgard Tablet] 1 tab PO DAILY 04/28/19 RX: armodafiniL [Nuvigil] 1 tab PO DAILY 04/28/19 Calcium Carbonate [Calcium] 500 mg PO DAILY 06/23/21 Esomeprazole Mag Trihydrate [Nexium] 1 cap PO DAILY 06/23/21 RX: Aspirin [Aspirin EC] 1 tab PO DAILY 06/23/21 RX: Spironolactone 1 tab PO DAILY 06/23/21 RX: Zinc 50 mg PO DAILY 06/23/21 Physician Discharge Instructions: Patient left against medical advice Followup: Unknown,U [Primary Care Provider] - Time spent managing pt's care (in minutes): 35
== END 2021-06-28 13:55 | disposition left against medical advice (07) | DRG 190 ==
LOC: ER 17:03 → ERHOLD 19:11 → 2ND 06-23 12:00
PROVIDERS: ADMIT Hospitalist; ATTEND Hospitalist
PROC: 5A0955A Assistance with Respiratory Ventilation, Greater than 96 Consecutive Hours, High Flow/Velocity Cannula (ICD-10-PCS; principal; 2021-06-22)
DX: J44.1 Chronic obstructive pulmonary disease with (acute) exacerbation (principal); G93.41 Metabolic encephalopathy; I50.31 Acute diastolic (congestive) heart failure; F19.151 Other psychoactive substance abuse with psychoactive substance-induced psychotic disorder with hallucinations; I10 Essential (primary) hypertension; I48.91 Unspecified atrial fibrillation; G47.33 Obstructive sleep apnea (adult) (pediatric); I11.0 Hypertensive heart disease with heart failure; R00.0 Tachycardia, unspecified; R09.02 Hypoxemia; K21.9 Gastro-esophageal reflux disease without esophagitis; G89.29 Other chronic pain; M54.2 Cervicalgia; M54.9 Dorsalgia, unspecified; F40.218 Other animal type phobia; E87.6 Hypokalemia; G47.419 Narcolepsy without cataplexy; F41.9 Anxiety disorder, unspecified; Z79.82 Long term (current) use of aspirin; Z79.899 Other long term (current) drug therapy; Z87.891 Personal history of nicotine dependence; Z98.51 Tubal ligation status; Z90.49 Acquired absence of other specified parts of digestive tract; Z88.8 Allergy status to other drugs, medicaments and biological substances; Z99.81 Dependence on supplemental oxygen; Z20.822 Contact with and (suspected) exposure to COVID-19; Z23 Encounter for immunization
CPT/HCPCS: 36415; 70450; 70551; 71045; 71275; 80048; 80053; 80061; 80076; 80307; 81003; 82140; 82533; 82607; 82747; 82805; 82947; 83605; 83735; 83880; 84100; 84132; 84145; 84425; 84439; 84443; 84484; 85025; 85610; 87040; 87177; 87205; 87209; 87804; 87807; 90471; 93005; 94002; 94003; 94660; 94760; 96374; 96375; 99285; J0360; J1630; J1650; J2920; J2930; J3010; J3370; J7050; J7512; Q2035; Q9967; U0003

== ENCOUNTER 2021-09-08 14:31 | Emergency (ER) | payer OTHER ==
--- OUTSIDE RECORDS SUMMARY | 2021-09-08 14:50 | XMS REPORT | Continuity of Care Document ---
:1960 Author Organization [facility] t Address [address] [place] [address] Care Team Providers Name Role Phone UMA PRETTY Primary Care Physician SY Attending Clinician Unavailable HOLLI Attending Clinician Unavailable Nayeli MANN Attending Clinician Unavailable Mackenzie THOMPSON S Attending Clinician Jesus THOMPSON S Attending Clinician Timur CHO Attending Clinician Unavailable Lucian CARVER Attending Clinician Unavailable AMAYA CURRY Attending Clinician Unavailable Nayeli MANN Admitting Clinician Unavailable Payers Payer Name Policy Type Policy Number Effective Date Expiration Date S parisarasta [facility] [id number] 2011 PLUS 00:00:00 [place] [id number] 2011 [facility]00 [facility] Problems Condition Condition Condition Status Onset Resolution Last Treating Co mments Source Name Details Category Date Date Treatment Clinician Date No known No known Disease Unive rs active active ity of problems problems [facility] Allergies, Adverse Reactions, Alerts Allergy Allergy Status Severity Reaction(s) Onset Inactive Treating Comm ents Source Name Type Date Date Clinician ZOLPIDEM Allergy Active Other [address] [facility] [facility]17 [facility] Medical [address] [place] [address] ZOLPIDEM Allergy Active Other 2017-[address] [facility]06 [facility] ZOLPIDEM DRUG Active Hallucinates Un tari INGREDI 4-17 ity of 00:00: [place] 00 Medical Branch Zolpidem Propensi Active Hallucinatio Univers ty to ns 4-17 ity of adverse 00:00: [place] reaction 00 Medical s Branch zolpidem DA Active [facility] tartrate 02-11 [place] 00:[facility]: e [facility] Social History Social Habit Start Date Stop Date Quantity Comments Source Exposure to Not sure [facility] SARS-CoV-2 (event) Medica l Branch Alcohol intake 2017-06-10 2017-06-10 0 /d [facility] 00:00:00 00:00:00 [facility] Sex Ass[birth year] [facility] 00:00:00 00:00:00 [facility] Smoking Status Start Date Stop Date Source Former smoker 2016-07-12 00:00:00 2016-07-12 00:00:00 [facility] Medications Ordered Filled Start [...] [place] 06/11/21 at 2330, STAT diphenhydrA 2020-08- No 25mg 25 mg, Uni vers MINE 06-12 Slow IV ity of (BENADRYL) 02:45: 02:06 Push, [place] injection 00 :00 ONCE, 1 Medical 25 mg dose, On Branch [place] 06/11/21 at 2145, STAT metoclopram 2020-08 No 10mg 10 mg, Uni vers dafne HCl 006-12 Slow IV ity of (REGLAN) 02:45: 02:06 Push, [place] injection 00 :00 ONCE, 1 Medical 10 mg dose, On Branch [facility] 06/11/21 at 2145, [facility] ketorolac 2020-08 No 15mg 15 mg, Unive rs (TORADOL) 006-12 Slow IV ity of injection 02:45: 02:06 Push, [place] 15 mg 00 :00 ONCE, 1 Medical dose, On Branch [facility] 06/11/21 at 2145, Routine
committee member approving Restricted medication : ROSANA MANN methylpredn 2020-08 No 40mg 40 mg, Uni vers isolone sod 06-12 Slow IV ity of succ 02:30: 02:06 Push, ONCE [place] (SOLU-MEDRO 00 :00 NOW, 1 Medica l L) dose, On Branch injection [place] 40 mg 06/11/21 at 2130, [facility] acetaminoph 2020-08 No 650mg 650 mg, U nivers en 0-12 06-22 Oral, ity of (TYLENOL) 02:30: 02:05 ONCE, 1 [place] tablet 650 00 :00 dose, On Medic al mg [place] Branch 06/11/21 at 2130, [facility] albuterol 2020-08 Yes [id number] 1.25mg Use 3 mL Univers 1.25 mg/3 0-22 as ity of mL 00:00: directed [place] nebulizer 00 every 6 Medical solution (six) Branch hours as needed for Wheezing or Shortness of Breath for up to 25 doses. predniSONE 2020-08 Yes [id number] 60mg Take 3 U nivers 20 mg 0-22 tablets by ity of tablet 00:00: mouth [place] 00 every Medical morning. Branch predniSONE 2020-08- No [id number] 60mg Take 3 Univers 20 mg 0-22 [...] ity of mg tablet 00:00: mouth 2 [place] 00 (two) Medical times Branch daily. oxybutynin 2017-0 Yes 5mg Take 1 Unive rs chloride 5 6-28 tablet by ity of mg tablet 00:00: mouth 2 [place] (two) Medical times Branch daily. diclofenac 2017-0 Yes 75mg Take 1 Unive rs 75 mg EC 5-26 tablet by ity of tablet 00:00: mouth 2 [place] (two) Medical times Branch daily with meals. diclofenac 2017-0 Yes 75mg Take 1 Unive rs 75 mg EC 5-26 tablet by ity of tablet 00:00: mouth 2 [place] (two) Medical times Branch daily with meals. fluticasone 20170 Yes 1{spray Use 1 Un tari 50 4-19 } [place] in ity of mcg/actuati 00:00: each [place] on nasal 00 nostril Medical spray daily. Branch Olopatadine 0 Yes 1{spray Use 1 Un tari (PATANASE) 4-19 } [place] in ity o f 0.6 % nasal 00:00: each [place] spray 00 nostril Medical daily. Branch fluticasone 2017-0 Yes 1{spray Use 1 Un tari 50 4-19 } [place] in ity of mcg/actuati 00:00: each [place] on nasal 00 nostril Medical spray daily. Branch Olopatadine 2017-0 Yes 1{spray Use 1 Un tari (PATANASE) 4-19 } [place] in ity o f 0.6 % nasal 00:00: each [place] spray 00 nostril Medical daily. Branch NAPROXEN 0 Yes Take by Unive rs (NAPROSYN 4-17 mouth. ity of ORAL) 19:51: [place] [id number] Medical Branch NAPROXEN 2017-0 Yes Take by Unive rs (NAPROSYN 4-17 mouth. ity of ORAL) 14:51: [place] [address] Medical Branch azelastine- 2017-0 Yes 1{spray Use 1 Un tari fluticasone 4-17 } [place] in ity of (DYMISTA) 00:00: each [place] 137-50 00 nostril Medical mcg/spray daily. Branch nasal spray azelastine- 2017-0 Yes 1{spray Use 1 Un tari fluticasone 4-17 } [place] in ity of (DYMISTA) 00:00: each [place] 137-50 00 nostril Medical mcg/spray daily. Branch nasal spray levofloxaci 2014-0 Yes 500mg Take 1 Tab Univers n [...] weekly. Medical mg/gram Branch vaginal cream Nitrofurant 2015-0 Yes 100mg Take 1 Cap Univers oin&Nit. [...] 00:00: [place] tablet 00 Medical Branch SPIRIVA 0 Yes Univers WITH 8-22 ity of HANDIHALER 00:00: [place] 18 mcg 00 Medical inhalation Branch NEXIUM 40 0 Yes Univers mg capsule 8-22 ity of 00:00: [place] 00 Medical Branch ADVAIR HFA Yes Univers 230-21 8-22 ity of mcg/actuati 00:00: [place] on inhaler 00 Medical Branch famotidine Yes Univers (PEPCID) 40 8-22 ity of mg tablet 00:00: [place] 00 Medical Branch LINZESS 290 0 Yes Univer s mcg Cap 8-22 ity [...] ity of 60 mg 00:00: [place] capsule Medical Branch Duloxetine Duloxetine Yes [address] [facility] - (Cymbalta) (Cymbalta) Pat ient 30 Mg 30 Mg s Capsule.dr Rios. [facility] Escitalopra Escitalopra Yes [address] m Oxalate m Oxalate [facility] - (Lexapro) (Lexapro) Patie nt 10 Mg 10 Mg s Tablet Tablet [facility] Esomeprazol Esomeprazol Yes C [facility]. e Magnesium e Magnesium L ukes - (Nexium) 40 (Nexium) 40 P atient Mg Mg s Capsule.dr Rios. [facility] Ketorolac Ketorolac Yes CHI S t. Tromethamin Tromethamin L ukes - e (Sprix) 1 e (Sprix) 1 P atient Each [place] Each [place] [facility] Quetiapine Quetiapine Yes Twice A [facility] Fumarate Fumarate Day [facility] - (Seroquel) (Seroquel) Pat ient 25 Mg 25 Mg s Tablet Tablet [facility] Tiotropium Tiotropium Yes [facility] Mobile Mobile [facility] - (Spiriva) (Spiriva) Patie nt 18 Mcg 18 Mcg s Cap.w.dev Cap.w.dev Medic al Center Vital Signs Vital Name Observation Time Observation Value Comments Source Systolic blood 2021-06-12 06:10:35 148 mm[Hg] Univer sity of pressure [place] [facility] Diastolic blood 2021-06-12 06:10:35 89 mm[Hg] Unive rsity of pressure [place] [facility] Heart rate 2021-06-12 06:10:35 87 /min Universi ty of [place] [facility] [place] Respiratory rate 2021-06-12 06:10:35 18 /min Univ ersity of [facility] Oxygen saturation in 2021-06-12 06:10:35 96 /min University of Arterial blood by [facility] [place] [facility] Pulse oximetry Branch Body temperature 2021-06-12 00:37:00 36.94 Jennifer [facility] ersity of [facility] Body weight 2021-06-12 00:37:00 86.183 kg Universi ty of [facility] BMI 2021-06-12 00:37:00 34.75 kg/m2 Universi ty of [facility] Systolic blood 2021 07:54:00 178 mm[Hg] Univer sity of pressure [place] [facility] [place] Diastolic blood 2021 07:54:00 104 mm[Hg] Unive rsity of pressure [place] [facility] [place] Heart rate 2021 07:54:00 96 /min Universi ty of [place] [facility] [place] Body temperature 2021 07:54:00 37.5 Jennifer Univ ersity of [place] [facility] Respiratory rate 2021 07:54:00 16 /min [facility] Body height 2021 07:54:00 157.5 cm Universi ty of [place] [facility] [place] Body weight 2021 07:54:00 74.844 kg Universi ty of [place] [facility] BMI 2021 07:54:00 30.18 kg/m2 Universi ty [facility] Oxygen saturation in 2021 07:54:00 99 /min University of Arterial blood by [facility] [place] [facility] Pulse oximetry Branch Procedures Procedure Date / Time Performed Performing Clinician [facility] e URINALYSIS 2021-06-12 04:07:00 Memo Rivas [facility] TROPONIN I 2021-06-12 02:04:00 Memo Rivas [facility] COMP. METABOLIC PANEL 2021-06-12 02:04:00 Memo Rivas [facility] ([id number]) Medical Branch CBC WITH DIFF 2021-06-12 02:04:00 Memo Rivas [facility] N-TERMINAL PRO-BNP 2021-06-12 02:04:00 Memo Rivas [facility] COVID-19 (ID NOW RAPID 2021-06-12 02:04:00 Memo Rivas Un [facility] TESTING) Medical Branch XR CHEST 1 VW 2021-06-12 01:43:00 Memo Rivas [facility] CT HEAD WO CONTRAST 2021 08:34:42 Alicia Lee [facility] NOTICE OF PRIVACY 2021 07:51:43 Doctor Unassigned, No [facility] Name [facility] CONSENT/REFUSAL FOR 2021 07:49:53 Doctor Unassigned, No [facility] DIAGNOSIS AND Name Medical Branch TREATMENT X-ray of chest, two 2018-03-14 00:00:00 SEBASTIÁN CARVER [facility] Encounters Start End Encounter Admission Attending Care Care Encounter Source Date/Time Date/Time Type Type Clinicians Facility Department ID 2021-07-09 Outpatient [facility] [id number] [place] 11:13:06 [id number] [facility] 2021-06-[address] [facility] [id number] Univers 06:08:53 [facility] 2021-07-21 2021-07-21 Outpatient Amari DAN [facility] [id number] Univers 13:00:00 13:00:00 TONYA [id number] [facility] 2021-07-21 2021-07-21 Outpatient Amari DAN [facility] [id number] Univers 13:00:00 13:00:00 TONYA [facility] 2021-07-03 2021-07-03 Outpatient Amari DAN [facility] [id number] Univers 10:00:00 10:00:00 TONYA [id number] [facility] 2021-07-03 2021-07-03 Outpatient Amari DAN [facility] [id number] Univers 10:00:00 10:00:00 TONYA ity [facility] 2021-07-03 2021-07-03 Outpatient Amari DAN, [facility] [id number] Univers 10:00:00 10:00:00 TONYA ity [facility] 2021-06-23 2021-06-23 Outpatient Amari DE LA GARZA [facility] [id number] Univers 09:00:00 09:00:00 CAS [id number] ity [facility] 2021-06-23 2021-06-23 Outpatient Amari DE LA GARZA [facility] [id number] Univers 09:00:00 09:00:00 CAS [facility] 2021-06-11 2021-06-12 Emergency X MACKENZIE, [facility] ERT [id number] Univers 19:37:00 01:11:00 ROSANA ity [facility] 2021-06-11 2021-06-12 Emergency Mackenzie, TRAUMA [id number] Univers 19:37:00 01:11:00 Rosana S CENTER [id number] [id number] [id number] [address] 2021-04-17 2021-04-17 Outpatient Amari DAN [facility] [id number] Univers 09:00:00 09:00:00 TONYA [id number] ity [facility] 2021-04-17 2021-04-17 [id number] Univers 09:00:00 09:00:00 TONYA ity [facility] 2021-04-03 2021-04-03 [facility] [id number] Univers 10:00:00 10:00:00 TONYA [id number] ity [facility] 2021-04-03 2021-04-03 [facility] [id number] Univers 10:00:00 10:00:00 TONYA [facility] 2021 2021 Emergency JesusRUST [id number] Univers 02:58:00 04:30:00 Alicia Briones [id number] ity Waqas 4.2.7.2.686 [facility] [id number] [place] [id number] Branch 2020-12-25 2020-12-25 [facility] [id number] Univers 10:00:00 10:00:00 CAS [id number] [facility] 2020-12-25 2020-12-25 [facility] [id number] Univers 10:00:00 10:00:00 CAS [facility] 2020-11-13 2020-11-13 [facility] [id number] Univers 10:00:00 10:00:00 WONDIFUL [id number] ity o f [facility] 2020-09-12 2020-09-12 Outpatient R [facility] [id number] Univers 18:00:00 18:00:00 [id number] [facility] 2019-12-07 2019-12-07 Outpatient R [facility] [id number] Univers 09:00:00 09:00:00 [id number] [facility] 2019-12-07 2019-12-07 Outpatient R [facility] [id number] Univers 09:00:00 09:00:00 [facility] 2018-03-14 2018-03-14 Departed 1 WEN, [facility] [id number] [facility] St. 09:11:00 14:46:[address] s - Room Patient s Medical Center Results Test Description Test Time Test Comments Results Result Comments Source N-TERMINAL PRO-BNP 2021-06-12 03:31:11 Test Item Value Reference Range Interpretation Comme nts NT-proBNP (test code = 434 pg/mL See_Comment H [Aut omated message] The [id number]) system which ge nerated this result tra nsmitted reference range : <=125. The reference r jamir was not used to int erpret this result as eli l/abnormal. SERINA (test code = SERINA) Biotin has been reported to cause a negative bias, interpret results relative to patient's use of biotin. Lab Interpretation (test Abnormal code = 00419-7) [facility] [id number] 03:04:49 Test Item Value Reference Interpretation Comments Range TROPONIN I (test 0.024 ng/mL See_Comment [Automated code = 0907267651) message] The system which generated this result [...] biotin. Lab Interpretation Normal (test code = 46612-3) [facility]OLIC PAN[facility] (46909)2021-06-12 02:36:23 Test Item Value Reference Range Interpretation Comments NA (test code = 140 mmol/L 135-145 7772179091) K (test code = 3.8 mmol/L 3.5-5.0 4452607164) CL (test code = 99 mmol/L 98-108 4808473931) CO2 TOTAL (test code = 32 mmol/L 23-31 H 4111507111) AGAP (test code = 2-16 8785380327) BUN (test code = 9 mg/dL 7-23 8136939532) GLUCOSE (test code = 94 mg/dL 70-110 5326219333) CREATININE (test code = 0.57 mg/dL 0.50-1.04 3653872325) TOTAL BILI (test code = 0.3 mg/dL 0.1-1.6 4060321168) CALCIUM (test code = 9.6 mg/dL 8.6-10.6 8386316446) T PROTEIN (test code = 7.1 g/dL 6.3-8.2 1206203065) ALBUMIN (test code = 4.4 g/dL 3.5-5.0 8933131558) ALK PHOS (test code = 93 U/L 34-122 6872886973) ALTv (test code = 21 U/L 5-35 1742-6) AST(SGOT) (test code = 28 U/L 13-40 5745158095) eGFR (test code = mL/min/1.73m2 0267544241) SERINA (test code = SERINA) Association of [...] tests). Lab Interpretation Abnormal (test code = 93952-5) [facility] WITH [id number] 02:22:41 Test Item Value Reference Range Interpretation Comments WBC (test code = See_Comment [Automated 0490-2) message] The sy stem which generated this [...] RDW-SD (test code = 49.0 fL 39.0-49.9 82088-1) RDW-CV (test code = 14.0 % 12.0-15.5 788-0) PLT (test code = See_Comment [Automated 777-3) message] The sy stem which generated this result transmitted reference range : 166 - 358 10*3/ ?L. The reference r jamir was not used to interpret this result as normal/abnormal . MPV (test code = 9.0 fL 9.5-12.9 L 63285-8) NRBC/100 WBC (test See_Comment [Automat ed code = 4604637107) message] The system which generated this result transmitted reference range : 0.0 - 10.0 /100 WBCs. The refer ence range was not u sed to interpret th is result as normal/abnormal . NRBC x10^3 (test code <0.01 See_Comment [Auto mated = 5561237264) message] The s ystem which generated this result transmitted reference range : 10*3/?L. The reference range was not used to interpret this result as normal/abnormal . GRAN MAT (NEUT) % 75.5 % (test code = 770-8) IMM GRAN % (test code 0.20 % = 3577798336) LYMPH % (test code = 18.4 % 736-9) MONO % (test code = 4.8 % 5905-5) EOS % (test code = 0.9 % 713-8) BASO % (test code = 0.2 % 706-2) GRAN MAT x10^3(ANC) 7.78 10*3/uL 1.88-7.09 H (test code = 3829682733) IMM GRAN x10^3 (test <0.03 0.00-0.06 code = 1559902766) LYMPH x10^3 (test code 1.89 10*3/uL 1.32-3.29 = 731-0) MONO x10^3 (test code 0.49 10*3/uL 0.33-0.92 = 742-7) EOS x10^3 (test code = 0.09 10*3/uL 0.03-0.39 711-2) BASO x10^3 (test code <0.03 0.01-0.07 = 704-7) Lab Interpretation Abnormal (test code = 57567-6) [facility]- XR FLUOROSCOPY 0-60 [id number] 14:31:00 FAX: Dallin Thompson MD [phone] [place]: St: [facility] FAX: Ifeanyi Mary [phone] Name: MANDEEP SAAVEDRA [facility] : 1960 Age/S: 59/F [address] Unit #: [id number] Loc: [place] [address] Phys: Dallin Brush MD Acct: [place] [id number] Dis Date: Status: REG CLI PHONE #: [phone] Exam Date: 07/02/2019 1230 FAX #: [phone] Reason: EXAMS: CPT CODE: [id number] XR FLUOROSCOPY 0-60 MIN 15276 HISTORY: Diff iculty breathing. COMPARISON: CT chest from same day. Location: [facility]. Fluoroscopic evaluation of both diaphragms evaluated: No [...] CC: Dallin Brush MD; Ifeanyi Huerta Technologist: LEÓN JOYNER) Trnscrd Date/Time/By: 07/02/2019 (1727) : By: [email or web address] Orig Print D/T: S: 07/02/2019 (1476) PAGE 1 Signed Report- CT CHEST W/[id number] 13:56:00 Name: MANDEEP SAAVEDRA [facility] : 1960 Age/S: 59 / F [address] [facility] [place] [facility] Unit #: [id number] Loc: [facility] [place] [address] Phys: Dallin Brush MD Acct: [id number] Dis Date: Status: REG CLI PHONE #: [phone] Exam Date: 07/02/2019 1110 FAX #: [phone] Reason: WORSENING DYSPNEA EXAMS: CPTCODE: [id number] CT CHEST W/CONTRAST 65690 HISTORY: Worsening dyspnea. COMPARISON: CT chest from January 02, 2016 and January 13, 2010 CT chest without contrast: Automated exposure control. Location: [facility]. 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 [...] the ascending aorta at 3.5 cm. at 2923 Reported and signed by: Candelario Moreno M.D. CC: Dallin Brush MD; Ifeanyi Huerta Technologist:RT Jason(R),CT; Lola CTDI: DLP: Trnscb Date/Time: 07/02/2019 (8052) t.[email or web address].[email or web address] Orig Print D/T: S: 07/02/2019 (8043) PAGE 1 Signed ReportCHEST 2 [id number] 11:27:00 [place] [address] Patient Name: MANDEEP SAAVEDRA MR #: [id number] : 1960 Age/Sex: 58/F Req #: [id number] Adm Physician: Ordered by: SEBASTIÁN CARVER MD Report #: [id number] Location: ER Room/Bed: Procedure: 3269-2000 DX/CHEST 2 VIEWS Exam Date: 03/14/18 Exam [...] 03/14/18 1127 COPY TO: SEBASTIÁN CARVER MDSodium [id number] 10:38:00 Test Item Value Reference Range Interpretation Comments Sodium Level (test code = 2951-2) 141 136-[address] [facility] [facility] [id number] 10:38:00 Test Item Value Reference Range Interpretation Comments Potassium Level (test code = 2823-3) 2.9 3.5-5.1 LL Results called to at 1035 on 03/14/18 by Stephen King. RB OK.This test has been rerun and double checked for accuracy.[facility] HospitalChloride [id number] 10:38:00 Test Item Value Reference Range Interpretation Comments Chloride Level (test code = 2075-0) 93 98-[address] [facility] HospitalCarbon Dioxide [id number] 10:38:00 Test Item Value Reference Range Interpretation Comments Carbon Dioxide Level (test code = 35 22-29 H 2027-) [facility] HospitalAnion [id number] 10:38:00 Test Item Value Reference Range Interpretation Comments Anion Gap (test code = 38418-8) 15.9 8-[address] [facility] HospitalBlood Urea [id number] 10:38:00 Test Item Value Reference Range Interpretation Comments Blood Urea Nitrogen (test code = 03-16 3094-0) [facility] HospitalCreatinine2018-07-24 10:38:00 Test Item Value Reference Range Interpretation Comments Creatinine (test code = 2160-0) 0.69 0.57-1.[address] [facility] HospitalBUN/Creatinine [id number] 10:38:00 Test Item Value Reference Range Interpretation Comments BUN/Creatinine Ratio (test code = 02-13 3097-3) [facility] HospitalEstimat Glomerular Filtration Rate 2018-03-14 10:38:00 Test Item Value Reference Range Interpretation Comments Estimat Glomerular Filtration Rate 60- >60 (test code = 03727-2) Ranges were taken from the National Kidney Disease Education Program and the National Kidney Foundation literature.Reference ranges:60 or greater: Fsxxup91- 59 (for 3 consecutive months): Chronic kidneydisease 15 or less: Kidney failure [facility] HospitalGlucose [id number] 10:38:00 Test Item Value Reference Range Interpretation Comments Glucose Level (test code = VGR1648) 78 74-[address] [facility] HospitalCalcium [id number] 10:38:00 Test Item Value Reference Range Interpretation Comments Calcium Level (test code = 53148-8) 9.8 8.4-10.[address] [facility] HospitalWhite Blood [id number] 10:19:00 Test Item Value Reference Range Interpretation Comments White Blood Count (test code = 6690-2) 11.39 4.8-10.[address] [facility] HospitalRed Blood [id number] 10:19:00 Test Item Value Reference Range Interpretation Comments Red Blood Count (test code = 789-8) 3.72 3.6-5.[address] [facility] HospitalHemoglobin2018-07-24 10:19:00 Test Item Value Reference Range Interpretation Comments Hemoglobin (test code = 42408-0) 11.6 12.0-16.[address] [facility] HospitalHematocrit2018-07-24 10:19:00 Test Item Value Reference Range Interpretation Comments Hematocrit (test code = 4544-3) 35.6 34.2-44.[address] [facility] HospitalMean Corpuscular [id number] 10:19:00 Test Item Value Reference Range Interpretation Comments Mean Corpuscular Volume (test code = 95.7 81-99 787-2) [facility] HospitalMean Corpuscular [id number] 10:19:00 Test Item Value Reference Range Interpretation Comments Mean Corpuscular Hemoglobin (test code 31.2 28-32 = 785-6) [facility] HospitalMean Corpuscular Hemoglobin Concent 2018-03-14 10:19:00 Test Item Value Reference Range Interpretation Comments Mean Corpuscular Hemoglobin Concent 32.6 31-35 (test code = 786-4) [facility] HospitalRed Cell Distribution [id number] 10:19:00 Test Item Value Reference Range Interpretation Comments Red Cell Distribution Width (test code 15.0 11.7-14.4 H = 20478-1) [facility] HospitalPlatelet [id number] 10:19:00 Test Item Value Reference Range Interpretation Comments Platelet Count (test code = 777-3) 405 140-[address] [facility] HospitalNeutrophils (%) (Auto)2018-03-14 10:19:00 Test Item Value Reference Range Interpretation Comments Neutrophils (%) (Auto) (test code = 59.3 38.7-80.0 74722-9) [facility]2018-03-14 10:19:00 Test Item Value Reference Range Interpretation Comments Lymphocytes (%) (Auto) (test code = 35.5 18.0-39.1 736-9) [facility] (Auto)2018-03-14 10:19:00 Test Item Value Reference Range Interpretation Comments Monocytes (%) (Auto) (test code = 4.0 4.4-11.3 L 5905-5) [facility] (Auto)2018-03-14 10:19:00 Test Item Value Reference Range Interpretation Comments Eosinophils (%) (Auto) (test code = 0.4 0.0-6.0 713-8) [facility] (Auto)2018-03-14 10:19:00 Test Item Value Reference Range Interpretation Comments Basophils (%) (Auto) (test code = 0.3 0.0-1.0 706-2) [facility] %2018-03-14 10:19:00 Test Item Value Reference Range Interpretation Comments IM GRANULOCYTES % (test code = IM 0.5 0.0-1.0 GRANULOCYTES %) [facility] # (Auto)2018-03-14 10:19:00 Test Item Value Reference Range Interpretation Comments Neutrophils # (Auto) (test code = 6.8 2.1-6.9 751-8) [facility] # (Auto)2018-03-14 10:19:00 Test Item Value Reference Range Interpretation Comments Lymphocytes # (Auto) (test code = 4.0 1.0-3.2 H 62547-7) [facility] (Auto)2018-03-14 10:19:00 Test Item Value Reference Range Interpretation Comments Monocytes # (Auto) (test code = 742-7) 0.5 0.2-0.[address] [address] [facility] (Auto)2018-03-14 10:19:00 Test Item Value Reference Range Interpretation Comments Eosinophils # (Auto) (test code = 0.1 0.0-0.4 711-2) [facility] (Auto)2018-03-14 10:19:00 Test Item Value Reference Range Interpretation Comments Basophils # (Auto) (test code = 704-7) 0.0 0.0-0.[address] [address] Immature Granulocyte (auto 2018-03-14 10:19:00 Test Item Value Reference Range Interpretation Comments Absolute Immature Granulocyte (auto 0.06 0-0.1 (test code = Absolute Immature Granulocyte (auto) [facility] METABOLIC [id number] 14:41:00 Test Item Value Reference Range Interpretation [...] PATIEN TS. CBC W/PLT COUNT & AUTO [id number] 14:20:00 Test Item Value Reference Range Interpretation [...]
[2021-09-08 15:46] LABS: Absolute Lymphocytes (CBC) 2.2 K/uL (0.7-4.9); Hematocrit 34.3 % (36.0-45.0); Lymphocytes % 20.2 % (15.3-44.8); MPV 7.1 fL (7.6-11.3); RBC Red Blood Cell Count 3.69 M/uL (3.86-4.86)
[2021-09-08] MEDS ORDERED: NA CHLORIDE 0.9% 500 ML ONE (15:50)
[2021-09-08 15:53] LABS: Protime INR 1.04
[2021-09-08 16:12] LABS: ALT/SGPT 17 U/L (12-78); AST/SGOT 14 U/L (15-37); Albumin 3.2 g/dL (3.4-5.0); Alkaline Phosphatase 102 U/L (45-117); BUN Blood Urea Nitrogen 22 mg/dL (7-18); Bicarbonate 36 mmol/L (21-32); Bilirubin Direct < 0.1 mg/dL (0-0.2); Bilirubin Total 0.3 mg/dL (0.2-1.0); Glucose Level 117 mg/dL (74-106); Protein, Total 7.8 g/dL (6.4-8.2); Sodium Level 135 mmol/L (136-145)
[2021-09-08 16:46] LABS: Urine Blood Negative (Negative); Urine Glucose Negative (Negative); Urine Protein Negative (Negative); Urine pH 5.5 (5.0-7.0)
[2021-09-08] MEDS ORDERED: POTASSIUM 25 MEQ EFFERV TAB ONE (16:49)
[2021-09-08] MEDS ORDERED: NA CHLORIDE 0.9% 1,000 ML ONE (16:57)
[2021-09-08 17:03] LABS: Barbiturates NEGATIVE (NEGATIVE); Benzodiazepines NEGATIVE (NEGATIVE); Cocaine NEGATIVE (NEGATIVE); METHAMPHETAM POSITIVE (NEGATIVE); Methadone NEGATIVE (NEGATIVE); Opiates NEGATIVE (NEGATIVE); Phencyclidine NEGATIVE (NEGATIVE); THC Cannibis NEGATIVE (NEGATIVE)
[2021-09-08 17:07] LABS: Blood Gas Oxyhemoglobin 97.2 % (94-97); Blood O2 Saturation 99.3 % (92-98.5)
--- NOTE | 2021-09-08 17:09 | RAD REPORT ---
EXAM DESCRIPTION: Saad Single View09/08/2021 4:23 pm CLINICAL HISTORY: Cough COMPARISON: June 2021 FINDINGS: Chronic elevation left hemidiaphragm The lungs appear clear of acute infiltrate. The heart is normal size IMPRESSION: No acute abnormalities displayed
--- NOTE | 2021-09-08 17:52 | ER ---
Nurse's Notes [facility] Name: Maureen Lopez Age: 61 yrs Sex: Female : 1960 Arrival Date: 09/08/2021 Time: 14:34 Bed 24 Private MD: Diagnosis: Dermatitis, unspecified;COPD/ Chronic obstructive pulmonary disease, unspecified;Abuse of other non-psychoactive substances-METH;Adverse effect of amphetamines;UTI/ Urinary tract infection, site not specified;Hypokalemia Presentation: 09/08 15:03 Chief complaint: Patient states: "I need to see an infection disease doctor. I have ww parasites that are eating me away. They are in my lungs, rectum, feet and vagina. My granddaughter has them now too because I have been watching her from the day she was born. My vagina and rectum are prolapsed. I am on oxygen but the parasites have ate my COPD so its better now". Coronavirus screen: Vaccine status: Patient reports receiving the 2nd dose of the covid vaccine. Client denies travel out of the [place] in the last 14 days. Ebola Screen: Patient negative for fever greater than or equal to 101.5 degrees Fahrenheit, and additional compatible Ebola Virus Disease symptoms Patient denies exposure to infectious person. Patient denies travel to an Ebola-affected area in the 21 days before illness onset. Initial Sepsis Screen: Does the patient meet any 2 criteria? No. Patient's initial sepsis screen is negative. Does the patient have a suspected source of infection? No. Patient's initial sepsis screen is negative. Risk Assessment: Do you want to hurt yourself or someone else? Patient reports no desire to harm self or others. Onset of symptoms is unknown. 15:03 Method Of Arrival: Wheelchair ww 15:03 Acuity: ELIANE 3 ww Triage Assessment: 15:07 General: Appears comfortable, Behavior is calm. Pain: Denies pain. EENT: No deficits ww noted. No signs and/or symptoms were reported regarding the EENT system. Neuro: Level of Consciousness is awake, alert, obeys commands, Speech is normal. Cardiovascular: Denies chest pain. Respiratory: Airway is patent Respiratory effort is even, unlabored, Respiratory pattern is regular, symmetrical. GI: No deficits noted. Reports rectal prolapse. : No deficits noted. Reports vaginal prolapse. Derm: Skin is intact. Historical: - Allergies: 15:07 ambien; ww - PMHx: 15:07 Atrial Fib; Bladder Hyperactivity; Hypertension; CHF; COPD; ww - Immunization history:: Client reports receiving the 2nd dose of the Covid vaccine. - Social history:: Smoking status: Patient denies any tobacco usage or history of. - Family history:: not pertinent. Screenin:47 Abuse screen: Denies threats or abuse. Denies injuries from another. Nutritional ab2 screening: No deficits noted. Tuberculosis screening: No symptoms or risk factors identified. Fall Risk No fall in past 12 months (0 pts). Secondary diagnosis (15 points) IV access (20 points). Ambulatory Aid- Crutches/Cane/Walker (15 pts). Gait- Normal/Bed Rest/Wheelchair (0 pts) Mental Status- Oriented to own ability (0 pts). Total Marquez Fall Scale indicates Low Risk Score (25-44 pts). Fall prevention measures have been instituted. Side Rails Up X 2 Placed close to Nursing Station Frequent Obs/Assesments occuring As available Patient and Family Educated on Fall Prevention Program and strategies. Assessment: 15:40 General: Appears in no apparent distress. Behavior is anxious. Pain: Denies pain. ab2 Neuro: Level of Consciousness is awake, alert, obeys commands, Oriented to person, place, time, situation, Appropriate for age Injection Molding Technician are equal bilaterally Moves all extremities. Gait is unsteady, Speech is normal. Cardiovascular: No deficits noted. Denies chest pain, shortness of breath, Heart tones S1 S2 present Patient's skin is warm and dry. Respiratory: Airway is patent Denies shortness of breath. GI: Reports Parasites being in her stool and other body fluids and parts. : No deficits noted. No signs and/or symptoms were reported regarding the genitourinary system. EENT: No deficits noted. No signs and/or symptoms were reported regarding the EENT system. Derm:. Musculoskeletal: No deficits noted. No signs and/or symptoms reported regarding the musculoskeletal system. Vital Signs: 15:03 BP 104 / 73; Pulse 90; Resp 18; Temp 96.5; Pulse Ox 96% on 3 lpm NC; Weight 68.04 kg; ww Height 5 ft. 0 in. (152.40 cm); Pain 0/10; 16:43 BP 114 / 69; Pulse 75; Resp 18; Pulse Ox 100% on 3.5 lpm NC; ab2 17:39 BP 107 / 60; Pulse 69; Resp 17; Pulse Ox 100% on 2 lpm NC; Pain 0/10; ab2 15:03 Body Mass Index 29.29 (68.04 kg, 152.40 cm) ED Course: 14:34 Patient arrived in ED. mr 15:07 Triage completed. ww 15:07 Arm band placed on left wrist. ww 15:15 Serafin Penn MD is Attending Physician. nirmal 15:29 Marc Perez RN is Primary Nurse. jl7 15:40 Acetaminophen Sent. ab2 15:40 Basic Metabolic Panel Sent. ab2 15:40 CBC with Diff Sent. ab2 15:40 ETOH Level Sent. ab2 15:40 Hepatic Function Sent. ab2 15:40 PT-INR Sent. ab2 15:40 Ptt, Activated Sent. ab2 15:40 Salicylate Sent. ab2 15:40 No provider procedures requiring assistance completed. Inserted saline lock: 18 gauge ab2 in right antecubital area, using aseptic technique. Blood collected. 15:48 Patient has correct armband on for positive identification. Bed in low position. Call ab2 light in reach. Side rails up X2. Adult w/ patient. 16:24 CXR XRAY In Process Unspecified. EDMS 16:36 Urine Drug Screen Sent. ab2 17:50 Jennifer Akhtar MD is Referral Physician. [facility] 18:29 IV discontinued, intact, bleeding controlled, No redness/swelling at site. Pressure jl7 dressing applied. Administered Medications: 16:12 Drug: NS 0.9% 500 ml Route: IV; Rate: bolus; Site: right antecubital; ab2 18:08 Follow up: Response: No adverse reaction; IV Status: Completed infusion; IV Intake: jl7 500ml 16:52 Drug: Potassium Effervescent Tablet 50 mEq Route: PO; ab2 18:08 Follow up: Response: No adverse reaction jl7 16:55 Drug: NS 0.9% 1000 ml Route: IV; Rate: 125 ml/hr; Site: right antecubital; ab2 18:08 Follow up: IV Status: Completed infusion jl7 18:08 Follow up: Response: No adverse reaction jl7 18:07 Drug: Rocephin (cefTRIAXone) 1 grams Route: IV; Rate: per protocol; Site: right [facility] antecubital; 18:10 Follow up: Response: No adverse reaction; IV Status: Completed infusion Intake: 18:08 IV: 500ml; Total: 500ml. jl7 Outcome: 17:51 Discharge ordered by MD. kinney 18:28 Discharged to home via wheelchair, with family. jl 18:28 Condition: stable 18:28 Discharge instructions given to patient, family, Instructed on discharge instructions, follow up and referral plans. medication usage, Demonstrated understanding of instructions, follow-up care, medications, Prescriptions given X 4. 18:29 Patient left the ED. jl7 Signatures: Dispatcher [employer] EDMS Serafin Penn MD MD cha Rivera, Mary mr Leal, Jahala, RN RN jl7 Wood, Whitney, RN RN ww Bleininger, Alexis ab2 Corrections: (The following items were deleted from the chart) 17:39 16:43 BP 114 / 69; Pulse 75bpm; Resp 18bpm; Pulse Ox 100% RA; ab2 ab2
--- NOTE | 2021-09-08 17:53 | EDPHYS ---
Physician Documentation [facility] Name: Maureen Lopez Age: 61 yrs Sex: Female : 1960 Arrival Date: 09/08/2021 Time: 14:34 Bed 24 Private MD: ED Physician Serafin Penn HPI: 09/08 15:54 This 61 yrs old Female presents to ER via Wheelchair with complaints of nirmal Infection. 15:54 cough , parasites, in groin, vaginal area and rectum , denies drug use. The patient or nirmal guardian reports cough. Onset: The symptoms/episode began/occurred 1 week(s) ago. Severity of symptoms: At their worst the symptoms were mild, in the emergency department the symptoms are unchanged. Modifying factors: The symptoms are alleviated by nothing, the symptoms are aggravated by nothing. Severity of symptoms: At their worst the symptoms were mild in the emergency department the symptoms are unchanged. The patient has not experienced similar symptoms in the past. Historical: - Allergies: 15:07 ambien; ww - PMHx: 15:07 Atrial Fib; Bladder Hyperactivity; Hypertension; CHF; COPD; ww - Immunization history:: Client reports receiving the 2nd dose of the Covid vaccine. - Social history:: Smoking status: Patient denies any tobacco usage or history of. - Family history:: not pertinent. ROS: 15:54 Constitutional: Negative for fever, chills, and weight loss, Eyes: Negative for injury, nirmal pain, redness, and discharge, ENT: Negative for injury, pain, and discharge, Neck: Negative for injury, pain, and swelling, Cardiovascular: Negative for chest pain, palpitations, and edema, Abdomen/GI: Negative for abdominal pain, nausea, vomiting, diarrhea, and constipation, Back: Negative for injury and pain, : Negative for injury, bleeding, discharge, and swelling, MS/Extremity: Negative for injury and deformity, Neuro: Negative for headache, weakness, numbness, tingling, and seizure, Psych: Negative for depression, anxiety, suicide ideation, homicidal ideation, and hallucinations, Allergy/Immunology: Negative for hives, rash, and allergies, Endocrine: Negative for neck swelling, polydipsia, polyuria, polyphagia, and marked weight changes. 15:54 Respiratory: Positive for cough, "sounds productive". 15:54 Skin: Positive for rash. Exam: 15:54 Constitutional: This is a well developed, well nourished patient who is awake, alert, nirmal and in no acute distress. Head/Face: Normocephalic, atraumatic. Eyes: Pupils equal round and reactive to light, extra-ocular motions intact. Lids and lashes normal. Conjunctiva and sclera are non-icteric and not injected. Cornea within normal limits. Periorbital areas with no swelling, redness, or edema. ENT: Nares patent. No nasal discharge, no septal abnormalities noted. Tympanic membranes are normal and external auditory canals are clear. Oropharynx with no redness, swelling, or masses, exudates, or evidence of obstruction, uvula midline. Mucous membranes moist. Neck: Trachea midline, no thyromegaly or masses palpated, and no cervical lymphadenopathy. Supple, full range of motion without nuchal rigidity, or vertebral point tenderness. No Meningismus. Chest/axilla: Normal chest wall appearance and motion. Nontender with no deformity. No lesions are appreciated. Cardiovascular: Regular rate and rhythm with a normal S1 and S2. No gallops, murmurs, or rubs. Normal PMI, no JVD. No pulse deficits. Respiratory: Lungs have equal breath sounds bilaterally, clear to auscultation and percussion. No rales, rhonchi or wheezes noted. No increased work of breathing, no retractions or nasal flaring. Abdomen/GI: Soft, non-tender, with normal bowel sounds. No distension or tympany. No guarding or rebound. No evidence of tenderness throughout. Back: No spinal tenderness. No costovertebral tenderness. Full range of motion. Female : Normal external genitalia. Skin: Warm, dry with normal turgor. Normal color with no rashes, no lesions, and no evidence of cellulitis. MS/ Extremity: Pulses equal, no cyanosis. Neurovascular intact. Full, normal range of motion. Neuro: Awake and alert, GCS 15, oriented to person, place, time, and situation. Cranial nerves II-XII grossly intact. Motor strength 5/5 in all extremities. Sensory grossly intact. Cerebellar exam normal. Normal gait. 15:54 Psych: Behavior/mood is anxious, Affect is animated, Oriented to person, place, time, Patient has no thoughts/intents to harm self or others. Judgement / Insight is normal. Memory is normal. Delusions/hallucinations are not present. 17:53 ECG was reviewed by the Attending Physician. nirmal Vital Signs: 15:03 BP 104 / 73; Pulse 90; Resp 18; Temp 96.5; Pulse Ox 96% on 3 lpm NC; Weight 68.04 kg; ww Height 5 ft. 0 in. (152.40 cm); Pain 0/10; 16:43 BP 114 / 69; Pulse 75; Resp 18; Pulse Ox 100% on 3.5 lpm NC; ab2 17:39 BP 107 / 60; Pulse 69; Resp 17; Pulse Ox 100% on 2 lpm NC; Pain 0/10; ab2 15:03 Body Mass Index 29.29 (68.04 kg, 152.40 cm) ww MDM: 15:15 Patient medically screened. nirmal 15:58 Differential Diagnosis altered mental status, Bronchitis Upper Respiratory Infection nirmal Pharyngitis. Data reviewed: vital signs, nurses notes, lab test result(s), EKG, radiologic studies, plain films. Data interpreted: fuel manager: rate is 90 beats/min, rhythm is regular. Test interpretation: by ED physician or midlevel provider: ECG, plain radiologic studies. Counseling: I had a detailed discussion with the patient and/or guardian regarding: the historical points, exam findings, and any diagnostic results supporting the discharge/admit diagnosis, lab results, radiology results, the need for outpatient follow up, a family practitioner. 09/08 15:16 Order name: Acetaminophen; Complete Time: 16:44 [facility] 09/08 15:16 Order name: Basic Metabolic Panel; Complete Time: 16:44 [facility] 09/08 15:16 Order name: CBC with Diff; Complete Time: 16:44 [facility] 09/08 15:16 Order name: ETOH Level; Complete Time: 16:44 [facility] 09/08 15:16 Order name: Hepatic Function; Complete Time: 16:44 [facility] 09/08 15:16 Order name: PT-INR; Complete Time: 16:44 [facility] 09/08 15:16 Order name: Ptt, Activated; Complete Time: 16:44 [facility] 09/08 15:16 Order name: Salicylate; Complete Time: 16:44 [facility] 09/08 15:16 Order name: Urine Drug Screen; Complete Time: 17:47 [facility] 09/08 16:45 Order name: ABG; Complete Time: 17:53 [facility] 09/08 16:45 Order name: Urine Culture [facility] 09/08 16:46 Order name: Troponin High Sensitivity; Complete Time: 17:47 [facility] 09/08 16:46 Order name: Urine Dipstick-Ancillary; Complete Time: 17:47 EDMS 09/08 17:17 Order name: COVID-19 SARS RT PCR (Document "Date of Onset" if Symptomatic) 09/08 15:16 Order name: EKG; Complete Time: 15:17 [facility] 09/08 15:16 Order name: EKG - Nurse/Tech; Complete Time: 16:34 [facility] 09/08 15:16 Order name: IV Saline Lock; Complete Time: 16:34 [facility] 09/08 15:16 Order name: Labs collected and sent; Complete Time: 15:40 [facility] 09/08 15:16 Order name: Suicide Screening ([place]); Complete Time: 15:40 [facility] 09/08 15:16 Order name: Urine Dipstick-Ancillary (obtain specimen); Complete Time: 16:36 [facility] 09/08 15:59 Order name: CXR XRAY; Complete Time: 17:47 09/08 17:48 Order name: PO challenge: juice; Complete Time: 18:08 [facility] EC:53 Rate is 88 beats/min. Rhythm is regular. QRS [place] is Normal. LA interval is normal. QRS nirmal interval is normal. QT interval is normal. No Q waves. T waves are Normal. No ST changes noted. Clinical impression: NSR w/ Non-specific ST/T Changes and No evidence of ischemia. Interpreted by me. Reviewed by me. Administered Medications: 16:12 Drug: NS 0.9% 500 ml Route: IV; Rate: bolus; Site: right antecubital; ab2 18:08 Follow up: Response: No adverse reaction; IV Status: Completed infusion; IV Intake: jl7 500ml 16:52 Drug: Potassium Effervescent Tablet 50 mEq Route: PO; ab2 18:08 Follow up: Response: No adverse reaction jl7 16:55 Drug: NS 0.9% 1000 ml Route: IV; Rate: 125 ml/hr; Site: right antecubital; ab2 18:08 Follow up: IV Status: Completed infusion jl7 18:08 Follow up: Response: No adverse reaction jl7 18:07 Drug: Rocephin (cefTRIAXone) 1 grams Route: IV; Rate: per protocol; Site: right jl7 antecubital; 18:10 Follow up: Response: No adverse reaction; IV Status: Completed infusion jl7 Disposition Summary: 09/08/21 17:51 Discharge Ordered Location: Home nirmal Problem: new nirmal Symptoms: have improved nirmal Condition: Stable nirmal Diagnosis - Dermatitis, unspecified nirmal - COPD/ Chronic obstructive pulmonary disease, unspecified nirmal - Abuse of other non-psychoactive substances - METH nirmal - Adverse effect of amphetamines nirmal - UTI/ Urinary tract infection, site not specified nirmal - Hypokalemia nirmal Followup: nirmal - With: Private Physician - When: 2 - 3 days - Reason: Recheck today's complaints, Continuance of care, Re-evaluation by your physician Followup: nirmal - With: Jennifer Akhtar MD - When: 2 - 3 days - Reason: Recheck today's complaints, Continuance of care, Re-evaluation by your physician Discharge Instructions: - Discharge Summary Sheet nirmal - Chronic Obstructive Pulmonary Disease nirmal - Contact Dermatitis nirmal - Rash, Adult nirmal - Substance Use Disorder nirmal - Urinary Tract Infection, Adult nirmal - Rash, Adult, [id number] nirmal - Contact Dermatitis, [id number] nirmal - Chronic Obstructive Pulmonary Disease, [id number] nirmal - Urinary Tract Infection, Adult, [id number] [facility] Forms: - Medication Reconciliation Form nirmal - Thank You Letter nirmal - Antibiotic Education nirmal - Prescription Opioid Use nirmal Prescriptions: - Benadryl 25 mg Oral Capsule - take 1 capsule by ORAL route every 6 hours As needed; 30 tablet; Refills: 0, [facility] Product Selection Permitted - Doxycycline Hyclate 100 mg Oral Tablet - take 1 tablet by ORAL route every 12 hours; 20 tablet; Refills: 0, Product nirmal Selection Permitted - albuterol sulfate 90 mcg/actuation Inhalation HFA aerosol inhaler - inhale 2 puff by INHALATION route every 4-6 hours; 1 Pump; Refills: 0, Product nirmal Selection Permitted - Albuterol Sulfate 2.5 mg /3 mL (0.083 %) Inhalation Solution for Nebulization - inhale 1 unit by NEBULIZATION route every 8 hours As needed; 1 box; Refills: 0, [facility] Product Selection Permitted Signatures: Dispatcher [employer] Serafin Centeno MD MD cha Leal, Jahala, RN RN jl7 Loraine Avelar RN RN ww Jarred Gerard
[2021-09-08] MEDS ORDERED: CEFTRIAXONE 1000 MG/VIAL ONE (18:05)
[2021-09-08 18:54] VITALS: TEMP 96.5
[2021-09-08 18:58] VITALS: O2SAT 100
[2021-09-08 19:00] VITALS: BP 107/60
== END 2021-09-08 18:29 | disposition home or self-care (01) ==
LOC: ER 14:31
DX: L30.9 Dermatitis, unspecified (principal); J44.9 Chronic obstructive pulmonary disease, unspecified; N39.0 Urinary tract infection, site not specified; E87.6 Hypokalemia; F15.10 Other stimulant abuse, uncomplicated; T43.625A Adverse effect of amphetamines, initial encounter; I10 Essential (primary) hypertension; I48.91 Unspecified atrial fibrillation; Z20.822 Contact with and (suspected) exposure to COVID-19; Z88.8 Allergy status to other drugs, medicaments and biological substances
CPT/HCPCS: 96361; 93005; 87088; 85025; 87086; 80048; 36415; 80320; 80329 ×2; 85610; 80076; 85730; 81003; 84484; 80307; 71045; 82805; 96374; 99284; U0003; J7040; J7030

== ENCOUNTER 2022-03-29 19:54 | Observation (INO) | payer OTHER ==
--- OUTSIDE RECORDS SUMMARY | 2022-03-29 19:58 | XMS REPORT | Continuity of Care Document ---
:1960 Author Organization [facility] t Address [address] [place] [address] Care Team Providers Name Role Phone MARIE HUERTA DO Primary Care Physician ROSE MEJIA Attending Clinician Unavailable SEBASTIÁN CARVER Attending Clinician Unavailable YANET CURRY Attending Clinician Unavailable Payers Payer Name Policy Type Policy Number Effective Date Expiration Date S ource [facility] [id number] 2011 PLUS 00:00:00 Vincent [id number] [address] 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 4-05 ity of 00:00: [place] [facility] Allergies, Adverse Reactions, Alerts Allergy Allergy Status Severity Reaction(s) Onset Inactive Treating Comm ents Source Name Type Date Date Clinician ZOLPIDEM Allergy Active Other [facility] ZOLPIDEM Allergy [facility] Zolpidem Propensi Active Hallucinatio Univers ty to ns 4-17 ity of adverse 00:00: [place] reaction 00 Medical s Branch ZOLPIDEM DRUG Active Hallucinates Un tari INGREDI 17 ity of 00:00: [place] 00 Medical Branch zolpidem DA Active [facility] tartrate 02-11 [place] [facility] Social History Social Habit Start Date Stop Date Quantity Comments Source History SDOH University o f Alcohol Std [place] [facility] Drinks Branch History SDSD University o f Alcohol Binge [place] [facility] al [facility] History SDSD University o f Alcohol Comment [place] [facility] Exposure to 2022-02-09 2022-02-19 Not sure University of SARS-CoV-2 00:00:00 15:35:00 [facility] (event) Branch Alcohol intake 2022-01-22 2022-01-22 0 /d University of 00:00:00 00:00:00 [place] [facility] History SDOH 2021-11-24 2021-11-24 1 University o f Alcohol Frequency 00:00:00 00:00:00 [facility] edical Branch Tobacco Comment 2021-11-24 2021-11-24 quit 5 years ago Uni versity of 00:00:00 00:00:00 [facility] History of 2016-11-24 Smoker University of tobacco use 00:00:00 [facility] Tobacco use and 2016-07-12 2016-07-12 Never used Universit y of exposure 00:00:00 00:00:00 [facility] Sex Ass[birth year] At [birth year] Universit y of 00:00:00 00:00:00 [facility] Smoking Status Start Date Stop Date Source Former smoker 2016-07-12 00:00:00 2016-07-12 00:00:00 Universi ty of [facility] Medications Ordered Filled Start Stop Current Ordering Indication Dosage Frequency Signature Comments Components Source Medication Medication Date Date Medication? Clinician (SIG) Name Name Estradiol Yes [id number] 10ug Insert 1 Univers (VAGIFEM) 06 tablet ity of 10 mcg 00:00: into [place] tablet 00 vagina 2 Medical (two) Branch times per week. dicyclomine Yes 20mg Take 20 mg Univers 20 mg 4-05 by mouth 4 ity of tablet 11:35: (four) [place] 18 times Medical daily. Branch BABY 2022-0 Yes Take by Univers ASPIRIN 4-05 mouth. ity of ORAL 11:35: [place] 18 Medical Branch FLUTICASONE Yes Inhale. Uni vers /SALMETEROL 4-05 ity of (ADVAIR 11:34: [place] DISKUS 12 Medical INHALE) Branch ALBUTEROL Yes Inhale. Unive rs SULFATE 4-05 ity of (PROAIR HFA 11:34: [place] INHALE) 12 Medical Branch ESOMEPRAZOL Yes Take by Uni vers E MAGNESIUM 4-05 mouth. ity of (NEXIUM 11:34: [place] ORAL) 12 Medical Branch Estradiol Yes [id number] 10ug Insert 1 Univers (VAGIFEM) 4-05 tablet ity of 10 mcg 00:00: into [place] tablet 00 vagina at Medical bedtime. Branch albuterol 2020-08 Yes [id number] 1.25mg Use 3 mL Univers 1.25 mg/3 0-22 as ity of mL 00:00: directed [place] nebulizer 00 every 6 Medical solution (six) Branch hours as needed for Wheezing or Shortness of Breath for up to 25 doses. predniSONE 2020-08 Yes [id number] 60mg Take 3 U nivers 20 mg 0-22 tablets by ity of tablet 00:00: mouth [place] 00 every Medical morning. Branch maalox/diph Yes 10mL Take 10 mL Univers enhydrAMINE 8-23 by mouth 4 it y of :lidocaine2 00:00: (four) [place] % viscous 00 times Medical 1:1:1 Susp daily as Branc h suspension needed for Oral mucositis. Rinse and Spit before meals and bedtime. ondansetron Yes 4mg Take 1 Univ ers (ZOFRAN 8-23 tablet by ity of ODT) 4 mg 00:00: mouth [place] disintegrat 00 every 8 Medic al ing tablet (eight) Branch hours as needed for Nausea and Vomiting (N/V). ranitidine 2016-08 Yes 300mg Take 1 Univ ers (ZANTAC) 0-20 tablet by ity of 300 mg 00:00: mouth at [place] tablet 00 bedtime. Medical Branch oxybutynin Yes 5mg Take 1 Unive rs chloride 5 6-28 tablet by ity of mg tablet 00:00: mouth 2 [place] 00 (two) Medical times Branch daily. diclofenac Yes 75mg Take 1 Unive rs 75 mg EC 5-26 tablet by ity of tablet 00:00: mouth 2 [place] 00 (two) Medical times Branch daily with meals. fluticasone Yes 1{spray Use 1 Un tari 50 4-19 } [place] in ity of mcg/actuati 00:00: each [place] on nasal 00 nostril Medical spray daily. Branch Olopatadine Yes 1{spray Use 1 Un tari (PATANASE) 4-19 } [place] in ity o f 0.6 % nasal 00:00: each [place] spray 00 nostril Medical daily. Branch NAPROXEN Yes Take by Univer s (NAPROSYN 4-17 mouth. ity of ORAL) 14:51: [place] 46 Medical Branch azelastine- Yes 1{spray Use 1 Un tari fluticasone 4-17 } [place] in ity of (DYMISTA) 00:00: each [place] 137-50 00 nostril Medical mcg/spray daily. Branch nasal spray levofloxaci Yes 500mg Take 1 Tab Univers n 9-11 by mouth ity of (LEVAQUIN) 00:00: every 24 Luis Fernando as 500 mg 00 (twenty-fo Medical tablet ur) hours. Branch Nitrofurant Yes 100mg Take 1 Cap Univers oin&Nit. 9-08 by mouth 2 ity o f Macrocryst 00:00: (two) [place] (MACROBID) 00 times Medical 100 mg daily. Branch capsule albuterol Yes Univers (PROVENTIL) 8-30 ity of 2.5 mg /3 00:00: [place] mL (0.083 00 Medical %) Branch nebulizer solution lactulose Yes Univers (CEPHULAC) 8-28 ity of 10 gram/15 00:00: [place] mL solution 00 Medical Branch NUVIGIL 250 Yes Univer s mg Tab 8-27 ity of 00:00: [place] 00 Medical Branch NEXIUM 40 Yes Univers mg capsule 8-22 ity of 00:00: [place] 00 Medical Branch ADVAIR HFA Yes Univers 230-21 8-22 ity of mcg/actuati 00:00: [place] on inhaler 00 Medical Branch famotidine Yes Univers (PEPCID) 40 8-22 ity of mg tablet 00:00: [place] 00 Medical Branch LINZESS 290 Yes Univer s mcg Cap 8- ity of 00:00: [place] 00 Medical Branch losartan Yes Univers (COZAAR) 8-22 ity of 100 mg 00:00: [place] tablet 00 Medical Branch naproxen Yes Univers (NAPROSYN) 8- ity of 500 mg 00:00: [place] tablet 00 Medical Branch SPIRIVA Yes Univers WITH 8- ity of HANDIHALER 00:00: [place] 18 mcg 00 Medical inhalation Branch buprenorphi Yes Univer s ne-naloxone 8- ity of (SUBOXONE) 00:00: [place] 8-2 mg 00 Medical sublingual Branch tablet DULoxetine Yes Univers (CYMBALTA) 8-08 ity of 60 mg 00:00: [place] capsule 00 Medical Branch Duloxetine Duloxetine Yes [address] [facility] (Cymbalta) (Cymbalta) Pat ient 30 Mg 30 Mg Medical Capsule. Capsule.dr Tom vivas Escitalopra Escitalopra Yes [address] [facility] Oxalate m Oxalate [facility] (Lexapro) (Lexapro) Patie nt 10 Mg 10 Mg Medical Tablet Tablet Center Esomeprazol Esomeprazol Yes [facility] e Magnesium e Magnesium L ukes (Nexium) 40 (Nexium) 40 P atient Mg Mg Medical Capsule. Capsule.dr Tom vivas Ketorolac Ketorolac Yes [facility] S t Tromethamin Tromethamin L ukes e (Sprix) 1 e (Sprix) 1 P atient Each [place] Each [place] Med ical Center Quetiapine Quetiapine Yes Twice A [facility] Fumarate Fumarate Day [facility] (Seroquel) (Seroquel) Pat ient 25 Mg 25 Mg Medical Tablet Tablet Center Tiotropium Tiotropium Yes [facility] (Spiriva) (Spiriva) Patie nt 18 Mcg 18 Mcg Medical Cap.w.dev Cap.w.dev Cente r Vital Signs Vital Name Observation Time Observation Value Comments Source Systolic blood 2022-02-19 21:07:00 157 mm[Hg] Univer sity of pressure [facility] Diastolic blood 2022-02-19 21:07:00 94 mm[Hg] Unive rsity of pressure [facility] Heart rate 2022-02-19 21:01:00 104 /min [facility] Body temperature 2022-02-19 21:01:00 37.11 Jennifer [facility] Respiratory rate 2022-02-19 21:01:00 18 /min [facility] Body height 2022-02-19 21:01:00 157.5 cm [facility] Body weight 2022-02-19 21:01:00 69.854 kg [facility] BMI 2022-02-19 21:01:00 28.17 kg/m2 [facility] Oxygen saturation in 2022-02-19 21:01:00 95 /min [facility] Arterial blood by [facility] Pulse oximetry [place] Procedures Procedure Date / Time Performed Performing Clinician Sourc e POCT URINALYSIS W/O 2022-02-19 00:00:00 Rose Mejia [facility] SPECIFIC GRAVITY [facility] X-ray of chest, two 2018-03-14 00:00:00 SEBASTIÁN CARVER [facility] Patient views [facility] Encounters Start End Encounter Admission Attending Care Care Encounter Source Date/Time Date/Time Type Type Clinicians Facility Department ID 2021-07-09 Outpatient [facility] [id number] [facility] 11:13:06 [id number] [facility] 2022-03-26 2022-03-26 Outpatient Amari MEJIA [facility] [id number] Univers 11:30:00 11:30:00 ROSE barlow [facility] 2022-02-19 2022-02-19 [facility] [id number] Univers 15:30:00 16:18:15 Visit Rose CASTRO [id number] [facility] [id number] [id number] dical NAL 098 Branch BUILDING 2022-02-19 2022-02-19 Outpatient R ROBERTO [facility] [id number] Univers 15:30:00 16:18:15 ROSE barlow [facility] 2018-03-14 2018-03-14 Departed 1 [facility] [id number] 09:11:00 14:46:00 Emergency SEBASTIÁN 20 [facility] Results Test Description Test Time Test Comments Results Result Comments Source POCT URINALYSIS W/O SPECIFIC GRAVITY 2022-02-19 21:15:00 Test Item Value Reference Range Interpretation Comme nts POCT PH U (test code = 3254) 6 mg/dl 5-8 POCT U LEUK EST (test code = 3263) NEGAITVE Negative - Negative POCT U NIT (test code = 3262) NEGATIVE Negative - Negative POCT U PROT (test code = 3259) NEGAITVE Negative - Negative POCT U GLU (test code = 3256) NEGATIVE Negative - Negative POCT U KETONE (test code = 3258) TRACE Negative - Negative POCT U BLD (test code = 3257) NEGAITVE Negative - Negative [facility]- XR FLUOROSCOPY 0-60 [id number] 14:31:00 FAX: Dallin Thompson MD [phone] [place]: B St: REG FAX: Marie Mary [phone] -- Name: QUENTINMANDEEP BELLO [facility] : 1960 Age/S: 59/F [address] Unit #: [id number] Loc: [place] [address] Phys: Dallin Brush MD Acct: [id number] Dis Date: Status: REG CLI PHONE #: [phone] Exam Date: 07/02/2019 1230 FAX #: [phone] Reason: EXAMS: CPT CODE: [id number] XR FLUOROSCOPY 0-60 MIN 73043 HISTORY: Difficulty breathing. COMPARISON: CT chest from same day. Location: [facility]. Fluoroscopic evaluation of both diaphragms evaluated: No excursion of the markedly elevated left hemidiaphragm. Mild excursion of the right hemidiaphragm. IMPRESSION: No excretion noted of the left diaphragm. Mild excursion is noted on the right side. Fluoroscopy time utilized was 0.6 minutes and single image was obtained during the study at 1431 Reported and signed by: Candelario Moreno M.D. CC: Dallin Brush MD; Marie Huerta Technologist: RT AR(R) Trnscrd Date/Time/By: 07/02/2019 (6522) : By: [email or web address] Orig Print D/T: S: 07/02/2019 (8870) PAGE 1 Signed Report- CT CHEST W/[id number] 13:56:00 Name: MANDEEP SAAVEDRA [facility] : 1960 Age/S: 59 / F [address] [facility] Unit #: [id number] Loc: [place] [address] Phys: Dallin Brush MD Acct: [id number] Dis Date: Status: REG CLI PHONE #: [phone] Exam Date: 07/02/2019 1110 FAX #: [phone] Reason: WORSENING DYSPNEA EXAMS: CPT CODE: [id number] CT CHEST W/CONTRAST 94811 HISTORY: Worsening dyspnea. COMPARISON: CT chest from January 02, 2016 and January 13, 2010 CT chest without contrast: Automated exposure control. Location: [facility]. 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 Descending aorta is not aneurysmal. No dissection.Unremarkable pulmonary arteries (not performed as PE protocol). Well- opacified SVC and the neck vasculature. Unremarkable thyroid glands. No pathologic adenopathy. Esophageal wall is not thickened. Cardiomegaly without pericardial effusion. [...] or fibrosis or endobronchial lesions. No parenchymal mass.Markedly elevated left hemidiaphragm. No pathologic adenopathy. Borderline fusiform aneurysmal dilata tion of the ascending aorta at 3.5 cm. at 7996 Reported and signed by: Candelario Moreno M.D. CC: Dallin Brush MD; Marie Huerta Technologist:sAhley Barajas,RT(R),CT; Lola CTDI: DLP: Trnscb Date/Time: 07/02/2019 (5306) t.[email or web address] Orig Print D/T: S: 07/02/2019 (2112) PAGE 1 Signed ReportCHEST 2 [id number] 11:27:00 [place] [address] PatientName: MANDEEP SAAVEDRA MR #: [id number] : 1960 Age/Sex: 58/F Req #: [id number] Adm Physician: Ordered by: SEBASTIÁN CARVER MD Report #: [id number] Location: ER Room/Bed: __ Procedure: [id number] DX/CHEST 2 VIEWS Exam Date: 03/14/18 Exam [...] prior outside imaging is recommended for evaluation. Subacuteleft posterolateral sixth rib fracture. Dictated by: CHARO VILLAREAL M.D. on 03/14/2018 at 11:27 Electronically approved by: CHARO VILLAREAL M.D. on 03/14/2018 at 11:27 Dictated By: CHARO VILLAREAL MD [id number] Transcribed By: SINDY on 03/14/18 1127 COPY TO: SEBASTIÁN CARVER MDSodium [id number] 10:38:00 Test Item Value Reference Range Interpretation Comments Sodium Level (test code = 2951-2) 141 136-145 [facility] [id number] 10:38:00 Test Item Value Reference Range Interpretation Comments Potassium Level (test code = 2823-3) 2.9 3.5-5.1 LL Results called to at 1035 on 03/14/18 by Stephen King. RB OK.This test has been rerun and double checked for accuracy.[facility] Chloride [id number] 10:38:00 Test Item Value Reference Range Interpretation Comments Chloride Level (test code = 2075-0) 93 98-107 L [facility]evilleCarbon Dioxide [id number] 10:38:00 Test Item Value Reference Range Interpretation Comments Carbon Dioxide Level (test code = 35 22-29 H 2027-) [facility]evilleAnion [id number] 10:38:00 Test Item Value Reference Range Interpretation Comments Anion Gap (test code = 37830-4) 15.9 8-16 [facility]eville[facility] Urea [id number] 10:38:00 Test Item Value Reference Range Interpretation Comments Blood Urea Nitrogen (test code = 03-16 3094-0) [facility]evilleCreatinine2018-07-24 10:38:00 Test Item Value Reference Range Interpretation Comments Creatinine (test code = 2160-0) 0.69 0.57-1.11 [facility]/Creatinine [id number] 10:38:00 Test Item Value Reference Range Interpretation Comments BUN/Creatinine Ratio (test code = 02-13 3097-3) [facility] BeevilleEstimat Glomerular Filtration [id number] 10:38:00 Test Item Value Reference Range Interpretation Comments Estimat Glomerular Filtration Rate 60- >60 (test code = 49530-5) Ranges were taken from the National Kidney Disease Education Program and the National Kidney Foundation literature.Reference ranges:60 or greater: Szmeov93- 59 (for 3 consecutive months): Chronic kidneydisease 15 or less: Kidney failure [facility]evilleGlucose [id number] 10:38:00 Test Item Value Reference Range Interpretation Comments Glucose Level (test code = HUN1718) 78 74-118 [facility] BeevilleCalcium [id number] 10:38:00 Test Item Value Reference Range Interpretation Comments Calcium Level (test code = 87047-0) 9.8 8.4-10.2 [facility]eville[facility] Blood [id number] 10:19:00 Test Item Value Reference Range Interpretation Comments White Blood Count (test code = 6690-2) 11.39 4.8-10.8 H [facility]evilleRed Blood [id number] 10:19:00 Test Item Value Reference Range Interpretation Comments Red Blood Count (test code = 789-8) 3.72 3.6-5.1 [facility]evilleHemoglobin2018-07-24 10:19:00 Test Item Value Reference Range Interpretation Comments Hemoglobin (test code = 49470-7) 11.6 12.0-16.0 L [facility]evilleHematocrit2018-07-24 10:19:00 Test Item Value Reference Range Interpretation Comments Hematocrit (test code = 4544-3) 35.6 34.2-44.1 [facility]evilleMean Corpuscular [id number] 10:19:00 Test Item Value Reference Range Interpretation Comments Mean Corpuscular Volume (test code = 95.7 81-99 787-2) [facility]Mean Corpuscular [id number] 10:19:00 Test Item Value Reference Range Interpretation Comments Mean Corpuscular Hemoglobin (test code 31.2 28-32 = 785-6) [facility]eville[facility] Corpuscular Hemoglobin [id number] 10:19:00 Test Item Value Reference Range Interpretation Comments Mean Corpuscular Hemoglobin Concent 32.6 31-35 (test code = 786-4) [facility]evilleRed Cell Distribution [id number] 10:19:00 Test Item Value Reference Range Interpretation Comments Red Cell Distribution Width (test code 15.0 11.7-14.4 H = 46071-5) [facility] BeevillePlatelet [id number] 10:19:00 Test Item Value Reference Range Interpretation Comments Platelet Count (test code = 777-3) 405 140-360 H [facility]evilleNeutrophils (%) (Auto)2018-03-14 10:19:00 Test Item Value Reference Range Interpretation Comments Neutrophils (%) (Auto) (test code = 59.3 38.7-80.0 42048-3) [facility]evilleLymphocytes (%) (Auto)2018-03-14 10:19:00 Test Item Value Reference Range Interpretation Comments Lymphocytes (%) (Auto) (test code = 35.5 18.0-39.1 736-9) [facility]eville[facility]ocytes (%) (Auto)2018-03-14 10:19:00 Test Item Value Reference Range Interpretation Comments Monocytes (%) (Auto) (test code = 4.0 4.4-11.3 L 5905-5) [facility]evilleEosinophils (%) (Auto)2018-03-14 10:19:00 Test Item Value Reference Range Interpretation Comments Eosinophils (%) (Auto) (test code = 0.4 0.0-6.0 713-8) [facility]eville[facility]ophils (%) (Auto)2018-03-14 10:19:00 Test Item Value Reference Range Interpretation Comments Basophils (%) (Auto) (test code = 0.3 0.0-1.0 706-2) [facility]evilleIM GRANULOCYTES %2018-03-14 10:19:00 Test Item Value Reference Range Interpretation Comments IM GRANULOCYTES % (test code = IM 0.5 0.0-1.0 GRANULOCYTES %) [facility]evilleNeutrophils # (Auto)2018-03-14 10:19:00 Test Item Value Reference Range Interpretation Comments Neutrophils # (Auto) (test code = 6.8 2.1-6.9 751-8) [facility]evilleLymphocytes # (Auto)2018-03-14 10:19:00 Test Item Value Reference Range Interpretation Comments Lymphocytes # (Auto) (test code = 4.0 1.0-3.2 H 69994-2) [facility]evilleMonocytes # (Auto)2018-03-14 10:19:00 Test Item Value Reference Range Interpretation Comments Monocytes # (Auto) (test code = 742-7) 0.5 0.2-0.8 [facility]evilleEosinophils # (Auto)2018-03-14 10:19:00 Test Item Value Reference Range Interpretation Comments Eosinophils # (Auto) (test code = 0.1 0.0-0.4 711-2) [facility]eville[facility]ophils # (Auto)2018-03-14 10:19:00 Test Item Value Reference Range Interpretation Comments Basophils # (Auto) (test code = 704-7) 0.0 0.0-0.1 [facility] BeevilleAbsolute Immature Granulocyte ([id number] 10:19:00 Test Item Value Reference Range Interpretation Comments Absolute Immature Granulocyte (auto 0.06 0-0.1 (test code = Absolute Immature Granulocyte (auto) [facility] BeevilleBASIC METABOLIC [id number] 14:41:00 Test Item Value Reference Range Interpretation [...] PATIEN TS. CBC W/PLT COUNT & AUTO [id number] 14:20:00 Test Item Value Reference Range Interpretation [...]
[2022-03-29] MEDS ORDERED: METHYLPREDNISOLONE 125 MG INJ ONE (20:33)
[2022-03-29] MEDS ORDERED: LEVALBUTEROL 1.25 MG/3 ML NEB ONE (20:33)
[2022-03-29] MEDS ORDERED: ACETAMINOPHEN 500 MG TAB ONE (20:33)
[2022-03-29 20:45] LABS: Absolute Lymphocytes (CBC) 2.1 K/uL (0.7-4.9); Hematocrit 35.5 % (36.0-45.0); Lymphocytes % 15.9 % (15.3-44.8); MCV 89.2 fL (80-100); MPV 7.4 fL (7.6-11.3); RBC Red Blood Cell Count 3.97 M/uL (3.86-4.86)
[2022-03-29] MEDS ORDERED: NA CHLORIDE 0.9% 1,000 ML ONE (20:47)
[2022-03-29 20:57] LABS: Protime INR 1.1
[2022-03-29 21:09] LABS: Albumin 3.4 g/dL (3.4-5.0); Bilirubin Total 0.4 mg/dL (0.2-1.0); Potassium 3.4 mmol/L (3.5-5.1); Protein, Total 7.4 g/dL (6.4-8.2)
[2022-03-29] MEDS ORDERED: NA CHLORIDE 0.9% 500 ML ONE (22:44)
[2022-03-29 22:51] LABS: Troponin High Sensitivity 22.1 pg/mL (<58.9)
--- NOTE | 2022-03-30 00:20 | EDPHYS ---
Physician Documentation [facility] Name: Maureen Lopez Age: 62 yrs Sex: Female : 1960 Arrival Date: 03/29/2022 Time: 19:55 Bed 7 Private MD: ED Physician Winsome Cotto HPI: 03/29 20:17 This 62 yrs old Female presents to ER via Wheelchair with complaints of Breathing pm1 Difficulty. 20:17 The patient has shortness of breath at rest. Onset: The symptoms/episode began/occurred pm1 and became worse today. The patient's shortness of breath is aggravated by exertion, light activity, is alleviated by nothing. Associated signs and symptoms: Pertinent positives: chest pain, productive cough, Pertinent negatives: nausea, vomiting. Severity of symptoms: in the emergency department the symptoms are worse. Feels like she is developing bronchitis. The patient has not recently seen a physician. 62-year-old patient presents to the ER with complaints of shortness of breath. Patient with baseline shortness of breath that has gotten worse today. Patient also reports chest pain starting today. Patient denies any subjective fever but reports onset of a productive cough that feels like she is developing bronchitis again. Historical: - Allergies: 20:04 ambien; ld1 - PMHx: 20:04 Atrial Fib; Bladder Hyperactivity; CHF; COPD; Hypertension; ld1 - PSHx: 20:04 Carpal tunnel bilateral; Ligation of fallopian tube; ld1 - Immunization history:: Adult Immunizations up to date. - Social history:: Smoking status: Patient/guardian denies using tobacco, the patient reports quitting approximately 6 years ago, Patient/guardian denies using alcohol. ROS: 20:17 Back: Negative for injury and pain, MS/Extremity: Negative for injury and deformity, pm1 Skin: Negative for injury, rash, and discoloration, Neuro: Negative for headache, weakness, numbness, tingling, and seizure. 20:17 Constitutional: Positive for poor PO intake, Has been sleeping all day since yesterday with resulting decreased PO intake, Negative for fever. 20:17 Cardiovascular: Positive for chest pain, of the left breast, mild edema to feet. 20:17 Respiratory: Positive for cough, "sounds productive", shortness of breath. 20:17 Abdomen/GI: Positive for blood with wiping due to history of prolapsed rectum, Negative for abdominal pain. 20:17 All other systems are negative. Exam: 20:29 ECG was reviewed by the Attending Physician. pm1 20:29 Constitutional: This is a well developed, well nourished patient who is awake, alert, pm1 and in no acute distress. Head/Face: Normocephalic, atraumatic. 20:29 Back: No spinal tenderness. No costovertebral tenderness. Full range of motion. Skin: Warm, dry with normal turgor. Normal color with no rashes, no lesions, and no evidence of cellulitis. MS/ Extremity: Pulses equal, no cyanosis. Neurovascular intact. Full, normal range of motion. 20:29 Eyes: Exam is negative for acute changes, Periorbital structures: no acute changes, Extraocular movements: no acute changes, Conjunctiva: no acute changes, no injection. 20:29 ENT: Exam is negative for acute changes. 20:29 Cardiovascular: Rate: tachycardic, Rhythm: regular, Pulses: no pulse deficits are appreciated, Heart sounds: normal, normal S1and S2. 20:29 Respiratory: the patient does not display signs of respiratory distress, Respirations: tachypnea, that is mild, Breath sounds: bronchial sounds, that are mild, are heard diffusely. 20:29 Neuro: Exam negative for acute changes, Orientation: is normal, Mentation: is normal, Motor: is normal, moves all fours. 03/30 01:49 Abdomen/GI: Rectal exam: hemorrhoid(s), external, with inflammation, without bleeding, pm1 without thrombosis, without pain, Katelynn Lainez and Heidy MALCOLM. Negative for prolapse. Vital Signs: 03/29 19:59 BP 126 / 108; Pulse 104; Resp 24; Temp 99.9(O); Pulse Ox 98% on 4 lpm NC; Weight 74.84 ld1 kg; Height 4 ft. 7 in. (139.70 cm); Pain 1/10; 20:44 BP 86 / 58; Pulse 111; Resp 17 S; Pulse Ox 99% on Nebulizer Mask; as6 22:37 BP 83 / 65; Pulse 99; Resp 18 S; Pulse Ox 99% on 2 lpm NC; as6 23:28 BP 132 / 95; Pulse 103; Resp 19 S; Temp 98.8(O); Pulse Ox 96% on 2 lpm NC; as6 03/30 01:17 BP 98 / 56; Pulse 97; Resp 24 S; Pulse Ox 98% on 2 lpm NC; as6 06:54 BP 87 / 60; Pulse 78; Resp 19; Pulse Ox 99% on 4 lpm NC; kd3 07:46 BP 106 / 91; Pulse 65; Resp 22; Temp 98.9; Pulse Ox 98% on 4 lpm NC; ph 03/29 19:59 Body Mass Index 38.35 (74.84 kg, 139.70 cm) ld1 MDM: 03/29 20:19 ED course: Patient with history of CHF and COPD. Impression initially is not patient pm1 has a COPD exacerbation with possible COVID, flu, pneumonia due to elevated temperature. Due to history of CHF will initiate 30 mL/kg IV fluid bolus at the moment. 20:21 Patient medically screened. pm1 03/30 00:16 Data reviewed: vital signs. Data interpreted: Pulse oximetry: on room air is 96 %. pm1 Interpretation: normal. 00:16 Counseling: I had a detailed discussion with the patient and/or guardian regarding: the pm1 historical points, exam findings, and any diagnostic results supporting the discharge/admit diagnosis, lab results, radiology results, the need for further work-up and treatment in the hospital. 03/29 20:17 Order name: Blood Culture Adult (2) pm1 03/29 20:17 Order name: CBC with Diff; Complete Time: 21:20 pm1 03/29 20:17 Order name: CMP; Complete Time: 21:20 pm1 03/29 20:17 Order name: Lactate; Complete Time: 21:20 pm1 03/29 20:17 Order name: Protime (+inr); Complete Time: 21:20 pm1 03/29 20:17 Order name: Ptt, Activated; Complete Time: 21:20 pm1 03/29 20:17 Order name: COVID-19 SARS RT PCR (Document "Date of Onset" if Symptomatic); Complete pm1 Time: 22:28 03/29 20:17 Order name: Flu; Complete Time: 21:34 pm1 03/29 20:25 Order name: Troponin High Sensitivity; Complete Time: 23:05 pm1 03/29 20:25 Order name: BNP; Complete Time: 23:05 pm1 03/29 20:46 Order name: Glucose, Ancillary Testing; Complete Time: 21:20 EDMS 03/30 04:10 Order name: Procalcitonin; Complete Time: 04:28 EDMS 03/30 07:04 Order name: Basic Metabolic Panel EDMS 03/30 07:04 Order name: Magnesium EDMS 03/29 20:17 Order name: Accucheck; Complete Time: 20:35 pm1 03/29 20:17 Order name: Cardiac monitoring; Complete Time: 20:35 pm1 03/29 20:17 Order name: EKG - Nurse/Tech; Complete Time: 20:35 pm1 03/29 20:17 Order name: IV Saline Lock - Large Bore; Complete Time: 20:35 pm1 03/29 20:17 Order name: Labs collected and sent; Complete Time: 20:35 pm1 03/29 20:17 Order name: O2 Per Protocol; Complete Time: 20:35 pm1 03/29 20:17 Order name: O2 Sat Monitoring; Complete Time: 20:36 pm1 03/30 00:06 Order name: Chest Single View XRAY pm1 03/30 07:10 Order name: CBC with Automated Diff EDMS EC/08 20:29 Rate is 104 beats/min. Rhythm is regular, Sinus tachycardia. QRS [place] is Normal. No Q pm1 waves. T waves are Inverted in lead aVL. Clinical impression: Abnormal EKG without significant change. No change from previous ECG on September 08, 2021. Previous findings: No significant changes present excpet for tachycardia. Administered Medications: 20:42 Drug: NS 0.9% 1000 ml Route: IV; Rate: 1000 ml; Site: right antecubital; as6 20:46 Drug: Acetaminophen 1000 mg Route: PO; kd3 20:46 Drug: Xopenex (levalbuterol) (3) 1.25 mg Route: Inhalation; kd3 20:46 Drug: SOLU-Medrol (methylPrednisoLONE) 125 mg Route: IVP; Site: right antecubital; kd3 22:39 Drug: NS 0.9% 500 ml Route: IV; Rate: bolus; Site: right antecubital; as6 03/30 01:02 Drug: NS 0.9% 500 ml Route: IV; Rate: bolus; Site: right antecubital; as6 Disposition Summary: 03/30/22 00:19 Hospitalization Ordered Hospitalization Status: Inpatient Admission pm1 Provider: Jing Lainez pmRoberta Condition: Stable pm1 Problem: new pm1 Symptoms: have improved pm1 Bed/Room Type: Standard pm1 Location: Telemetry/MedSurg (Inpatient)(03/30/22 07:44) bd Room Assignment: 223(03/30/22 07:44) bd Diagnosis - Dehydration pm1 - Coronavirus infection, unspecified pm1 - COPD/ Chronic obstructive pulmonary disease, unspecified pm1 Forms: - Medication Reconciliation Form pm1 - SBAR form pm1 Signatures: Dispatcher [employer] EDMS Socorro Hussein Cindy RN RN cg Michael June NP CHECK SCALER pm1 Génesis Candelaria RN RN ld1 Derrek Vazquez RN RN as6 Heidy Menjivar RN RN kd3 Jing Lainez, PA PA sb3 Corrections: (The following items were deleted from the chart) 03:06 00:19 Telemetry/MedSurg (Inpatient) pm1 cg 03:06 00:19 pm1 cg 07:44 03:06 [facility] ER HOLD cg bd 07:44 03:06 ERHOLD- cg bd
--- NOTE | 2022-03-30 00:20 | ER ---
Nurse's Notes [facility] Name: Maureen Lopez Age: 62 yrs Sex: Female : 1960 Arrival Date: 03/29/2022 Time: 19:55 Bed 7 Private MD: Diagnosis: Dehydration;Coronavirus infection, unspecified;COPD/ Chronic obstructive pulmonary disease, unspecified Presentation: 03/29 19:59 Chief complaint: Patient states: Rectal bleeding started last night, bright red, small ld1 amount dripping out all the time. Coronavirus screen: Vaccine status: Patient reports receiving the 2nd dose of the covid vaccine. Ebola Screen: No symptoms or risks identified at this time. Initial Sepsis Screen: Does the patient meet any 2 criteria? No. Patient's initial sepsis screen is negative. Does the patient have a suspected source of infection? No. Patient's initial sepsis screen is negative. Risk Assessment: Do you want to hurt yourself or someone else? Patient reports no desire to harm self or others. Onset of symptoms was March 28, 2022. 19:59 Method Of Arrival: Wheelchair ld1 19:59 Acuity: ELIANE 3 ld1 Triage Assessment: 19:59 General: Behavior is cooperative, appropriate for age, anxious. Pain: Denies pain. ld1 Neuro: Level of Consciousness is awake, alert, obeys commands, Oriented to person, place, time, situation. Cardiovascular: Patient's skin is warm and dry. Respiratory: Reports shortness of breath at rest Airway is patent Respiratory effort is even, labored, Onset: The symptoms/episode began/occurred at an unknown time. the patient has moderate shortness of breath. 20:04 General: Appears distressed, uncomfortable. ld1 Historical: - Allergies: 20:04 ambien; ld1 - PMHx: 20:04 Atrial Fib; Bladder Hyperactivity; CHF; COPD; Hypertension; ld1 - PSHx: 20:04 Carpal tunnel bilateral; Ligation of fallopian tube; ld1 - Immunization history:: Adult Immunizations up to date. - Social history:: Smoking status: Patient/guardian denies using tobacco, the patient reports quitting approximately 6 years ago, Patient/guardian denies using alcohol. Screenin:36 Abuse screen: Denies threats or abuse. Denies injuries from another. Nutritional as6 screening: No deficits noted. Tuberculosis screening: No symptoms or risk factors identified. Fall Risk None identified. Assessment: 20:20 General: Appears uncomfortable, Behavior is cooperative, anxious, restless. Pain: as6 Complains of pain in chest. Neuro: Level of Consciousness is awake, alert. Cardiovascular: Rhythm is sinus tachycardia. Respiratory: Reports shortness of breath cough that is productive, Respiratory effort is even, labored. 03/30 06:56 Reassessment: Patient and/or family updated on plan of care and expected duration. Pain kd3 level reassessed. Patient is alert, oriented x 3, equal unlabored respirations, skin warm/dry/pink. pt slept well through the night. Blood pressures remain soft but is easily aroused and has no complaints. General: Appears in no apparent distress. Behavior is calm, cooperative. Vital Signs: 03/29 19:59 BP 126 / 108; Pulse 104; Resp 24; Temp 99.9(O); Pulse Ox 98% on 4 lpm NC; Weight 74.84 ld1 kg; Height 4 ft. 7 in. (139.70 cm); Pain /; 20:44 BP 86 / 58; Pulse 111; Resp 17 S; Pulse Ox 99% on Nebulizer Mask; as6 22:37 BP 83 / 65; Pulse 99; Resp 18 S; Pulse Ox 99% on 2 lpm NC; as6 23:28 BP 132 / 95; Pulse 103; Resp 19 S; Temp 98.8(O); Pulse Ox 96% on 2 lpm NC; as6 03/30 01:17 BP 98 / 56; Pulse 97; Resp 24 S; Pulse Ox 98% on 2 lpm NC; as6 06:54 BP 87 / 60; Pulse 78; Resp 19; Pulse Ox 99% on 4 lpm NC; kd3 07:46 BP 106 / 91; Pulse 65; Resp 22; Temp 98.9; Pulse Ox 98% on 4 lpm NC; ph 03/29 19:59 Body Mass Index 38.35 (74.84 kg, 139.70 cm) ld1 ED Course: 03/29 19:55 Patient arrived in ED. jj6 19:59 Arm band placed on left wrist. ld1 20:04 Michael June NP is PHCP. pm1 20:04 Winsome Cotto MD is Attending Physician. pm1 20:04 Triage completed. ld1 20:19 Heidy Menjivar, RN is Primary Nurse. kd3 20:25 Inserted saline lock: 18 gauge in right antecubital area, using aseptic technique. as6 Blood collected. 20:35 BNP Sent. as6 20:35 Troponin High Sensitivity Sent. as6 20:35 Flu Sent. as6 20:35 COVID-19 SARS RT PCR (Document "Date of Onset" if Symptomatic) Sent. as6 20:36 Placed in gown. Bed in low position. Call light in reach. Side rails up X 1. Adult w/ as6 patient. Client placed on continuous cardiac and pulse oximetry monitoring. NIBP monitoring applied. 20:36 Blood Culture Adult (2) Sent. as6 20:36 CBC with Diff Sent. as6 20:36 CMP Sent. as6 20:36 Lactate Sent. as6 20:36 Protime (+inr) Sent. as6 20:36 Ptt, Activated Sent. as6 21:53 Notified Nurse Practitioner and/or Physician Supervisor [place] of a critical lab result(s), bb Covid positive Michael June NP notified. 03/30 00:19 Jing Lainez PA is Hospitalizing Provider. pm1 00:35 Chest Single View XRAY In Process Unspecified. EDMS 05:44 No provider procedures requiring assistance completed. Patient admitted, IV remains in as6 place. Administered Medications: 03/29 20:42 Drug: NS 0.9% 1000 ml Route: IV; Rate: 1000 ml; Site: right antecubital; as6 20:46 Drug: Acetaminophen 1000 mg Route: PO; kd3 20:46 Drug: Xopenex (levalbuterol) (3) 1.25 mg Route: Inhalation; kd3 20:46 Drug: SOLU-Medrol (methylPrednisoLONE) 125 mg Route: IVP; Site: right antecubital; kd3 22:39 Drug: NS 0.9% 500 ml Route: IV; Rate: bolus; Site: right antecubital; as6 03/30 01:02 Drug: NS 0.9% 500 ml Route: IV; Rate: bolus; Site: right antecubital; as6 Medication: 05:44 VIS not applicable for this client. as6 Outcome: 00:19 Decision to Hospitalize by Provider. pm1 05:44 Admitted to ER Hold. Please see [facility] for further documentation. as6 05:44 Condition: stable 05:44 Instructed on the need for admit. 09:23 Patient left the ED. bp Signatures: Dispatcher [employer] EDAnca Mueller, RN RN bb Caitlyn Moser RN RN Michael Orozco, WAFER BATTER MIXER WAFER BATTER MIXER pm1 Parker Bhatia RN RN bp Génesis Candelaria RN RN ld1 [place] j6 Derrek Vazquez RN RN as6 Heidy Menjivar RN RN kd3 Corrections: (The following items were deleted from the chart) 03/29 20:07 19:59 BP 126 / 108; Pulse 104bpm; Resp 24bpm; Pulse Ox 98% 4 lpm Nasal Cannula; Temp ld1 96.8F; 74.84 kg; Height 4 ft. 7 in.; BMI: 38.3; Pain 1/10; ld1
[2022-03-30] MEDS ORDERED: NA CHLORIDE 0.9% 500 ML ONE (01:04)
--- NOTE | 2022-03-30 02:06 | P.HP ---
Certification for Inpatient Patient admitted to: Inpatient With expected LOS: <2 Midnights Patient will require the following post-hospital care: None Practitioner: I am a practitioner with admitting privileges, knowledge of patient current condition, hospital course, and medical plan of care. Services: Services provided to patient in accordance with Admission requirements found in Title 42 Section 412.3 of the Code of Federal Regulations Patient History Date of Service: 03/30/22 Reason for admission: Dehydration, COVID, Hypotension History of Present Illness: Patient is a 61 y/o female with COPD on home O2, CHF, chronic afib, HTN, and TEJ who presented to the ED with complaints of shortness of breath. She reports productive cough, weakness, decreased PO intake. Code sepsis was initially called upon arrival as she was tachycardic, tachypneic, temp 99.9F, and requiring 4L O2 NC (baseline of 2L). Labs significant for WBC 13, Na 131, K 3.4, Cl 93, BUN 19. She was given tylenol, breathing treatments, and solumedrol. Her blood pressure was slowly trending down to 80s systolic. She revealed that she normally drinks a lot of water but hasn't drank much since she's been feeling ill yet still took her lasix. She was given 3 separate 500 mL fluid boluses. Her blood pressure improved but remained soft. Upon my assessment, patient started complaining of rectal bleeding. She states she notices a bulge when she has a BM and bright red blood when she wipes. Rectal exam revealed external hemorrhoids. Reassured patient. She is admitted for further evaluation of dehydration, COVID- 19, and hypotension. Allergies zolpidem tartrate [From Ambien] Adverse Reaction (Verified 08/11/16 02:49) hallucinations Home medications list reviewed: Yes Home Medications: Ascorbic Acid [Vitamin C] 1 cap PO DAILY 04/28/19 B12/Iodin/Mag/Zinc/Ellen/[id number] [Adrenoid Capsule] 1 cap PO DAILY 04/28/19 Dicyclomine [Bentyl*] 20 mg PO BID 04/28/19 Duloxetine [Cymbalta *] 60 mg PO DAILY 04/28/19 Linaclotide [Linzess] 1 tab PO DAILY PRN 04/28/19 [place]-3/Dha/Epa/Fish Oil [[place] 3 500 Softgel] 1 cap PO DAILY 04/28/19 Oxybutynin Chloride [Ditropan*] 1 tab PO BID 04/28/19 Vit D3/Folic Acid/B2/B6/B12 [Folgard Tablet] 1 tab PO DAILY 04/28/19 armodafiniL [Nuvigil] 1 tab PO DAILY 04/28/19 Aspirin [Aspirin EC] 1 tab PO DAILY 06/23/21 Calcium Carbonate [Calcium] 500 mg PO DAILY 06/23/21 Esomeprazole Mag Trihydrate [Nexium] 1 cap PO DAILY 06/23/21 Spironolactone 1 tab PO DAILY 06/23/21 Zinc 50 mg PO DAILY 06/23/21 - Past Medical/Surgical History Diabetic: No -: COPD on home oxygen -: GERD with hiatal hernia -: HTN -: Chronic neck/back pain -: Former tobacco use -: Bladder hyperactivity -: Depression -: Narcolepsy -: Obstructive sleep apnea on CPAP -: Bladder scope -: Tubal ligation -: Carpal tunnel surgery -: cervical surgery -: Lumbar surgery -: Cholecystectomy Psychosocial/ Personal History: Patient is . - Family History Father -: Cancer, Other (see notes) Mother -: Cancer Notes: Crohns Brother -: Hypertension, Cancer, Kidney disease Sister -: Cancer, Kidney disease Notes: Colon cancer` - Social History Smoking Status: Former smoker Alcohol use: Yes CD- Drugs: Yes Caffeine use: Yes Place of Residence: Home Review of Systems General: Weakness Respiratory: Cough, Shortness of Breath Physical Examination - Physical Exam General: Alert, In no apparent distress, Obese HEENT: Atraumatic, PERRLA, EOMI, Sclerae nonicteric Neck: Supple, No LAD Respiratory: Expiratory wheezes Cardiovascular: Regular rate/rhythm, Normal S1 S2 Gastrointestinal: Normal bowel sounds, No tenderness Musculoskeletal: No tenderness Integumentary: No rashes Neurological: Normal speech, Normal strength at 5/5 x4 extr, Normal tone, Normal affect Rectal: Other (external hemorrhoids with inflammation without bleeding or thrombosis) - Studies Laboratory Data (last 24 hrs) 03/29/22 20:30: PT 12.1, INR 1.10, APTT 35.7 03/29/22 20:30: Sodium 131 L, Potassium 3.4 L, BUN 19 H, Creatinine 0.85, Glucose 127 H, Total Bilirubin 0.4, AST 37, ALT 27, Alkaline Phosphatase 98 03/29/22 20:30: WBC 13.2 H, Hgb 11.9 L, Hct 35.5 L, Plt Count 271 Microbiology Data (last 24 hrs): 03/29/22 20:30 Nasopharnyx Influenza Type A Antigen Screen - Final 03/29/22 20:30 Nasopharnyx Influenza Type B Antigen Screen - Final Assessment and Plan - Problems (Diagnosis) (1) COPD (chronic obstructive pulmonary disease) Current Visit: Yes Status: Chronic Qualifiers: COPD type: unspecified COPD Qualified Code(s): J44.9 - Chronic obstructive pulmonary disease, unspecified (2) COVID-19 Current Visit: Yes Status: Acute (3) Hypotension Current Visit: Yes Status: Acute Qualifiers: Hypotension type: hypotension due to hypovolemia Qualified Code(s): I95.89 - Other hypotension; E86.1 - Hypovolemia (4) Dehydration Current Visit: Yes Status: Acute (5) Hypokalemia Current Visit: Yes Status: Acute (6) TEJ (obstructive sleep apnea) Current Visit: Yes Status: Chronic - Plan -Hypotension likely secondary to hypovolemia. Given 3 500 mL fluid boluses in [facility] ED. Will hold off on additional given CHF history and monitor blood pressure closely. -Patient with increased O2 requirement. Wean as tolerated. Monitor pulse ox. Breathing treatments as needed. -Chest xray negative. Patient reports productive cough. COVID+. Sputum culture ordered. Will hold off on antibiotics for now. -Dexamethasone, vitamin C, and zinc daily. Tessalon Perles PRN. -Patient does have history of methamphetamine abuse. UDS ordered. She does exhibit some symptoms of hypochondria. -Monitor and replete electrolytes per protocol -Reconcile and continue home medications -Lovenox for VTE ppx -Full code Discharge Plan: Home Plan to discharge in: 48 Hours - Advance Directives Does patient have a Living Will: No Does patient have a Durable POA for Healthcare: No - Code Status/Comfort Care Code Status Assessed: Yes (Full) Critical Care: No Time Spent Managing Pts Care (In Minutes): 50
[2022-03-30] MEDS ORDERED: ONDANSETRON 4 MG/2 ML VIAL IV PRN (05:37)
[2022-03-30] MEDS ORDERED: ALBUTEROL 2.5 MG/3 ML NEB SOL NEB PRN ×2 (05:37→14:00)
[2022-03-30] MEDS ORDERED: BENZONATATE 100 MG CAP PO PRN (05:37)
[2022-03-30] MEDS ORDERED: ACETAMINOPHEN 500 MG TAB PO PRN (05:37)
[2022-03-30 05:42] VITALS: BMI 38.3
[2022-03-30 06:55] LABS: Absolute Lymphocytes (CBC) 0.9 K/uL (0.7-4.9); Hematocrit 28.2 % (36.0-45.0); Lymphocytes % 8.9 % (15.3-44.8); MCV 90.8 fL (80-100); MPV 7.4 fL (7.6-11.3)
[2022-03-30 07:03] LABS: Magnesium 1.8 mg/dL (1.8-2.4); Potassium 3.9 mmol/L (3.5-5.1)
[2022-03-30] MEDS: ZINC SULFATE 220 MG CAP PO SCH (09:40)
[2022-03-30] MEDS: dexAMETHasone 4 MG TAB PO SCH (09:40)
[2022-03-30] MEDS: ASCORBIC ACID 500 MG TABLET PO SCH (09:41)
[2022-03-30] MEDS: ENOXAPARIN 40 MG/0.4 ML SQ SCH (09:41)
--- NOTE | 2022-03-30 10:38 | EKG ---
Test Date: 2022-03-29 Test Time: 20:19:21 Auto Body Technician: FROY MEASUREMENT RESULTS: Intervals: Rate: 104 MA: 126 QRSD: 76 QT: 336 QTc: 441 [place]: P: 79 MA: 126 QRS: -2 T: 106 INTERPRETIVE STATEMENTS: Sinus tachycardia with fusion complexes Cannot rule out Anterior infarct, age undetermined ST & T wave abnormality, consider lateral ischemia Abnormal ECG Compared to ECG 09/08/2021 16:29:14 Fusion complex(es) now present ST (T wave) deviation now present Possible ischemia now present Sinus rhythm no longer present Myocardial infarct finding still present Electronically Signed On 03-30-22 10:36:06 CDT by Gabo Carrillo
--- NOTE | 2022-03-30 14:42 | P.PN ---
Date of Service: 03/30/22 Patient states she is feeling much better today. She is complaining of increased discharge in both eyes. She is comfortable at baseline oxygen of 2 L by nasal cannula. Diagnosis: COVID-19 infection Acute viral conjunctivitis. Acute on chronic respiratory failure with hypoxia. Hyponatremia Anemia COPD exacerbation A. fib with RVR. Plan: Patient currently at baseline oxygen. No pneumonia Continue oral dexamethasone. Treat hyponatremia with free water restriction given history of CHF. Monitor BMP. Bronchodilators as needed. A. fib is currently rate controlled. Monitor CBC to follow anemia.
--- NOTE | 2022-03-30 15:16 | RAD REPORT ---
EXAM DESCRIPTION: RAD - Chest Single View - 03/30/2022 12:33 am CLINICAL HISTORY: COUGH TECHNIQUE: Frontal view of the chest. COMPARISON: No relevant prior studies available. FINDINGS: Lungs: Coarsened interstitial markings. No focal consolidation. Pleural space: Unremarkable. No pneumothorax. Heart: The cardiac silhouette is mildly enlarged, in part accentuated by portable technique. Mediastinum: Unremarkable. Bones/joints: Multilevel spondylosis. No acute fracture. Vasculature: Thoracic aortic atherosclerosis. Upper abdomen: Elevation of the left hemidiaphragm. IMPRESSION: No acute disease. Electronically signed by: Emily Obando MD 03/30/2022 1:27 AM CDT Due to temporary technical issues with the PACS/Fluency reporting system, reports are being signed by the in house radiologists without review as a courtesy to insure prompt reporting. The interpreting radiologist is fully responsible for the content of the report.
[2022-03-31 03:01] LABS: Barbiturates NEGATIVE (NEGATIVE); Benzodiazepines NEGATIVE (NEGATIVE); Cocaine NEGATIVE (NEGATIVE); METHAMPHETAM NEGATIVE (NEGATIVE); Methadone NEGATIVE (NEGATIVE); Opiates NEGATIVE (NEGATIVE); Phencyclidine NEGATIVE (NEGATIVE); THC Cannibis NEGATIVE (NEGATIVE)
[2022-03-31 03:12] LABS: Urine Bilirubin Negative (Negative); Urine Blood Negative (Negative); Urine Clarity Clear (Clear); Urine Color Yellow (Yellow); Urine Glucose Negative (Negative); Urine Protein Negative (Negative); Urine Urobilinogen 0.2 mg/dL (0.2-1.0)
[2022-03-31 06:37] LABS: Absolute Lymphocytes (CBC) 2.7 K/uL (0.7-4.9); Hematocrit 30.7 % (36.0-45.0); Lymphocytes % 18.8 % (15.3-44.8); MCV 88.8 fL (80-100); MPV 7.3 fL (7.6-11.3); RBC Red Blood Cell Count 3.45 M/uL (3.86-4.86)
[2022-03-31 06:54] LABS: Magnesium 1.9 mg/dL (1.8-2.4); Potassium 3.4 mmol/L (3.5-5.1)
[2022-03-31] MEDS: dexAMETHasone 4 MG TAB PO SCH (08:59)
[2022-03-31] MEDS: ZINC SULFATE 220 MG CAP PO SCH (09:00)
[2022-03-31] MEDS: ASCORBIC ACID 500 MG TABLET PO SCH (09:00)
[2022-03-31] MEDS: ENOXAPARIN 40 MG/0.4 ML SQ SCH (09:00)
[2022-03-31] MEDS ORDERED: POTASSIUM CL SA 10 MEQ TAB PO ONE (09:00)
--- NOTE | 2022-03-31 16:25 | P.DS ---
Admission Date: 03/30/22 Discharge Date: 03/31/22 Disposition: ROUTINE DISCHARGE Discharge Condition: FAIR Reason for Admission: Dehydration, COVID, Hypotension Brief History of Present Illness: Patient is a 61 y/o female with COPD on home O2, CHF, chronic afib, HTN, and TEJ who presented to the ED with complaints of shortness of breath. She reported productive cough, weakness, decreased PO intake. Code sepsis was initially called upon arrival as she was tachycardic, tachypneic, temp 99.9F, and requiring 4L O2 NC (baseline of 2L). Labs significant for WBC 13, Na 131, K 3.4, Cl 93, BUN 19. She was given tylenol, breathing treatments, and solumedrol. Her blood pressure was slowly trended down to 80s systolic. She revealed that she normally drinks a lot of water but hasn't drank much since she's been feeling ill yet still took her lasix. She was given 3 separate 500 mL fluid boluses. Her blood pressure improved but remained soft. She also reported rectal bleeding. She states she notices a bulge when she has a BM and bright red blood when she wipes. Rectal exam revealed external hemorrhoids. Patient hospitalized for further management. Hospital Course: Diagnosis COVID-19 infection Acute viral conjunctivitis. Acute on chronic respiratory failure with hypoxia. Hyponatremia Anemia COPD exacerbation A. fib with RVR. Patient placed under observation on the medical floor. Her blood pressure was stable Patient was also stable on her baseline oxygen No pneumonia She was treated with oral dexamethasone given her baseline respiratory failure Also treated with bronchodilators as needed. A. fib is currently was rate controlled during the hospital stay. Patient deemed clinically stable for discharge. Vital Signs/Physical Exam: Temp Pulse Resp BP Pulse Ox 97.6 F 80 16 121/83 91 03/31/22 12:00 03/31/22 12:00 03/31/22 12:00 03/31/22 12:00 03/31/22 12:00 General: Alert, In no apparent distress, Oriented x3 HEENT: Mucous membr. moist/pink Neck: JVD not distended Respiratory: Clear to auscultation bilaterally, Normal air movement Cardiovascular: No edema, Regular rate/rhythm, Normal S1 S2 Gastrointestinal: Normal bowel sounds, Soft and benign, Non-distended, No tenderness Musculoskeletal: No swelling Integumentary: No rashes Neurological: Normal strength at 5/5 x4 extr, Cranial nerves 3-12 intact Laboratory Data at Discharge: WBC 14.2 K/uL (4.3-10.9) H D 03/31/22 06:07 Hgb 10.5 g/dL (12.0-15.0) L 03/31/22 06:07 Hct 30.7 % (36.0-45.0) L 03/31/22 06:07 Plt Count 253 K/uL (152-406) 03/31/22 06:07 PT 12.1 SECONDS (9.5-12.5) 03/29/22 20:30 INR 1.10 03/29/22 20:30 APTT 35.7 SECONDS (24.3-36.9) 03/29/22 20:30 Sodium 130 mmol/L (136-145) L 03/31/22 06:07 Potassium 3.4 mmol/L (3.5-5.1) L 03/31/22 14:37 BUN 19 mg/dL (7-18) H 03/31/22 06:07 Creatinine 0.76 mg/dL (0.55-1.3) 03/31/22 06:07 Glucose 174 mg/dL (74-106) H 03/31/22 06:07 Magnesium 1.9 mg/dL (1.8-2.4) 03/31/22 06:07 Total Bilirubin 0.4 mg/dL (0.2-1.0) 03/29/22 20:30 AST 37 U/L (15-37) 03/29/22 20:30 ALT 27 U/L (12-78) 03/29/22 20:30 Alkaline Phosphatase 98 U/L (45-117) 03/29/22 20:30 Home Medications: B12/Iodin/Mag/Zinc/Ellen/Hexf544 [Adrenoid Capsule] 1 cap PO DAILY 04/28/19 Dicyclomine [Bentyl*] 20 mg PO BID 04/28/19 Duloxetine [Cymbalta *] 60 mg PO DAILY 04/28/19 Linaclotide [Linzess] 1 tab PO DAILY PRN 04/28/19 [place]-3/Dha/Epa/Fish Oil [[place] 3 500 Softgel] 1 cap PO DAILY 04/28/19 Oxybutynin Chloride [Ditropan*] 1 tab PO BID 04/28/19 Vit D3/Folic Acid/B2/B6/B12 [Folgard Tablet] 1 tab PO DAILY 04/28/19 armodafiniL [Nuvigil] 1 tab PO DAILY 04/28/19 Aspirin [Aspirin EC] 1 tab PO DAILY 06/23/21 Calcium Carbonate [Calcium] 500 mg PO DAILY 06/23/21 Spironolactone 1 tab PO DAILY 06/23/21 Buprenorphine HCl/Naloxone HCl [Suboxone 8 mg-2 mg Tablet] 1 each SL BID PRN 03/30/22 Ascorbic Acid [Vitamin C*] 500 mg PO BID #60 tab 03/31/22 Benzonatate [Tessalon Perle*] 100 mg PO TID PRN #30 cap 03/31/22 Methylprednisolone [Medrol dosepack] 4 mg PO DIRECTED #1 suri 03/31/22 Zinc Sulfate [Zinc Sulfate*] 220 mg PO DAILY #30 cap 03/31/22 New Medications: Methylprednisolone [Medrol dosepack] 4 mg PO DIRECTED #1 suri Benzonatate [Tessalon Perle*] 100 mg PO TID PRN #30 cap PRN Reason: Cough Ascorbic Acid [Vitamin C*] 500 mg PO BID #60 tab Zinc Sulfate [Zinc Sulfate*] 220 mg PO DAILY #30 cap Diet: AHA Activity: Ad cary Followup: Unknown,U [Primary Care Provider] - 1-2 Weeks
[2022-03-31 23:06] VITALS: O2SAT 97
[2022-04-01 06:39] LABS: Potassium 3.3 mmol/L (3.5-5.1)
[2022-04-01] MEDS ORDERED: POTASSIUM CL SA 10 MEQ TAB PO ONE (09:00)
[2022-04-01] MEDS: ENOXAPARIN 40 MG/0.4 ML SQ SCH (10:04)
[2022-04-01] MEDS: ZINC SULFATE 220 MG CAP PO SCH (10:05)
[2022-04-01] MEDS: dexAMETHasone 4 MG TAB PO SCH (10:05)
[2022-04-01] MEDS: ASCORBIC ACID 500 MG TABLET PO SCH (10:05)
[2022-04-01 12:19] VITALS: BP 114/63; TEMP 97
--- NOTE | 2022-04-01 14:30 | P.PN ---
Subjective Date of Service: 03/31/22 Chief Complaint: Dehydration, COVID, Hypotension Patient has no new complaint. She is tolerating baseline oxygen. No recorded fever. Physical Examination - Vital Signs Temperature: 97.0 F Blood Pressure: 114/63 Pulse: 81 Respirations: 19 Pulse Ox (%): 97 Assessment And Plan - Plan Physical Exam General: Alert, In no apparent distress, Obese HEENT: Oxygen by nasal cannula. Neck: Supple, No LAD Respiratory: Expiratory wheezes Cardiovascular: Regular rate/rhythm, Normal S1 S2 Gastrointestinal: Normal bowel sounds, No tenderness Musculoskeletal: No tenderness Integumentary: No rashes Neurological: Normal speech, Normal strength at 5/5 x4 extr, Normal tone, Normal affect Diagnosis: COVID-19 infection Acute viral conjunctivitis. Acute on chronic respiratory failure with hypoxia. Hyponatremia Anemia COPD exacerbation A. fib with RVR. Plan: Patient currently at baseline oxygen. No pneumonia Continue oral dexamethasone. Hyponatremia is improving Free water restriction given history of CHF. Monitor BMP. Bronchodilators as needed. A. fib is currently rate controlled. Monitor CBC to follow anemia.
== END 2022-04-01 20:30 | disposition home or self-care (01) ==
LOC: ER 19:54 → INTOOBSV 03-30 01:58 → ERHOLD 03-30 01:58 → 2ND 03-30 08:26
PROVIDERS: ADMIT Internal Medicine; ATTEND Internal Medicine
DX: U07.1 COVID-19 (principal); J96.21 Acute and chronic respiratory failure with hypoxia; J44.1 Chronic obstructive pulmonary disease with (acute) exacerbation; E86.0 Dehydration; I95.9 Hypotension, unspecified; B30.9 Viral conjunctivitis, unspecified; E87.1 Hypo-osmolality and hyponatremia; E87.6 Hypokalemia; D64.9 Anemia, unspecified; I48.20 Chronic atrial fibrillation, unspecified; I11.0 Hypertensive heart disease with heart failure; I50.9 Heart failure, unspecified; G47.33 Obstructive sleep apnea (adult) (pediatric); R00.0 Tachycardia, unspecified; K64.4 Residual hemorrhoidal skin tags; F15.11 Other stimulant abuse, in remission; K21.9 Gastro-esophageal reflux disease without esophagitis; K44.9 Diaphragmatic hernia without obstruction or gangrene; G89.29 Other chronic pain; M54.2 Cervicalgia; M54.9 Dorsalgia, unspecified; N32.81 Overactive bladder; G47.419 Narcolepsy without cataplexy; F32.A Depression, unspecified; Z99.81 Dependence on supplemental oxygen; Z79.82 Long term (current) use of aspirin; Z79.899 Other long term (current) drug therapy; Z88.8 Allergy status to other drugs, medicaments and biological substances; Z90.49 Acquired absence of other specified parts of digestive tract; Z87.891 Personal history of nicotine dependence; Z82.49 Family history of ischemic heart disease and other diseases of the circulatory system; Z84.1 Family history of disorders of kidney and ureter; Z83.79 Family history of other diseases of the digestive system; Z80.0 Family history of malignant neoplasm of digestive organs
CPT/HCPCS: 93005; 87040 ×2; 85025 ×3; 80048 ×3; 36415 ×3; 83735 ×2; 84132 ×2; 85610; 82947; 83605; 85730; 81003; 84484; 80053; 84145; 83880; 80307; 87804 ×2; 71045; 97116; 97161; 94760 ×3; 96374; 99285; U0003; J8540 ×3; J1650 ×3; J7040 ×2; J7030; J2930